=== PATIENT | female | born 1995 | race Caucasian/White ===

== ENCOUNTER → 2017-08-13 | Outpatient (CLI) | payer BC ==
[2017-08-13 17:58] LABS: BASO % 0.4 % (0.0-1.0); EOS # 0.2 10^3/uL (0.0-0.50); EOS % 2.4 % (0.0-3.0); IMMATURE GRANULOCYTE % 0.1 % (0-0); LYMPH # 2.6 10^3/uL (1.5-6.5); LYMPH % 35.1 % (24.0-44.0); MEAN CORPUSCULAR HEMOGLOBIN 26.5 pg (27.0-33.0); MEAN CORPUSCULAR HGB CONC 30.8 g/dl (32.0-36.5); MEAN CORPUSCULAR VOLUME 86.2 fl (80.0-96.0); MONO # 0.6 10^3/uL (0.0-0.8); MONO % 7.4 % (0.0-5.0); NEUTROPHILS # 4.1 10^3/uL (1.8-7.7); NEUTROPHILS % 54.6 % (36.0-66.0); PLATELET COUNT, AUTOMATED 328 10^3/uL (150-450); RED CELL DISTRIBUTION WIDTH 13.9 % (11.5-14.5); WHITE BLOOD COUNT 7.4 10^3/uL (4.0-10.0)
[2017-08-13 18:48] LABS: ALBUMIN 3.7 GM/DL (3.2-5.2); ALBUMIN/GLOBULIN RATIO 0.93 (1.00-1.93); ALKALINE PHOSPHATASE 59 U/L (45-117); ALT/SGPT 18 U/L (12-78); ANION GAP 8 MEQ/L (8-16); AST/SGOT 17 U/L (7-37); BILIRUBIN,TOTAL 0.3 MG/DL (0.2-1.0); BLOOD UREA NITROGEN 14 MG/DL (7-18); CALCIUM LEVEL 8.8 MG/DL (8.5-10.1); CARBON DIOXIDE LEVEL 27 MEQ/L (21-32); CHLORIDE LEVEL 108 MEQ/L (98-107); CREATININE FOR GFR 0.66 MG/DL (0.55-1.02); GLUCOSE, FASTING 96 MG/DL (70-105); POTASSIUM SERUM 4.1 MEQ/L (3.5-5.1); SODIUM LEVEL 143 MEQ/L (136-145); TOTAL PROTEIN 7.7 GM/DL (6.4-8.2)
== END ==
LOC: M LAB 17:19
PROVIDERS: ATTEND Psychiatry & Neurology Neurology
DX: R56.9 Unspecified convulsions (principal); Z51.81 Encounter for therapeutic drug level monitoring; Z79.899 Other long term (current) drug therapy

== ENCOUNTER 2018-11-26 09:07 | Emergency (ER) | payer BC ==
[~2018-11-26] VITALS: Ht 172.7 cm; Wt 48.2 kg
[2018-11-26] MEDS ORDERED: DIVA500T9 PO (09:21)
[2018-11-26] MEDS ORDERED: VIMP200T PO (09:21)
[2018-11-26] MEDS ORDERED: FOLI1TAB11 PO (09:21)
[2018-11-26] MEDS ORDERED: TRIV1TAB2 PO (09:21)
[2018-11-26 10:30] LABS: BLOOD UREA NITROGEN 11 MG/DL (7-18); CALCIUM LEVEL 8.9 MG/DL (8.5-10.1); CARBON DIOXIDE LEVEL 25 MEQ/L (21-32); CHLORIDE LEVEL 108 MEQ/L (98-107); CREATININE FOR GFR 0.65 MG/DL (0.55-1.30); GLOMERULAR FILTRATION RATE > 60.0 (>60); GLUCOSE, FASTING 93 MG/DL (70-100); POTASSIUM SERUM 3.9 MEQ/L (3.5-5.1); SODIUM LEVEL 140 MEQ/L (136-145); VALPROIC ACID (DEPAKOTE) 8.8 UG/ML (50.0-100.0)
[2018-11-26 10:36] LABS: HCG, SERUM QUALITATIVE NEGATIVE (NEGATIVE)
[2018-11-26 11:35] VITALS: BP 91/50
== END 2018-11-26 11:36 | disposition home or self-care (01) ==
LOC: M ED 09:07
DX: R56.9 Unspecified convulsions (principal); I73.00 Raynaud's syndrome without gangrene; Z79.899 Other long term (current) drug therapy; Z88.2 Allergy status to sulfonamides; Z88.8 Allergy status to other drugs, medicaments and biological substances

== ENCOUNTER 2019-01-05 18:43 | Emergency (ER) | payer BC ==
[~2019-01-05] VITALS: Ht 172.7 cm; Wt 45.9 kg
[~2019-01-05 18:43] MED LIST: DIVA500T9 PO; FOLI1TAB11 PO; TRIV1TAB2 PO; VIMP200T PO
[2019-01-05] MEDS ORDERED: IBUPROFEN 600 MG TAB PO ONE (20:00)
--- NOTE | 2019-01-05 20:03 | REPVR ---
EXAM: CT Head Without Contrast EXAM DATE/TIME: 01/05/2019 7:30 PM CLINICAL HISTORY: 23 years old, female; Condition or disease; Convulsions or seizures; Patient HX: Vns implant; Additional info: Multiple seizures today TECHNIQUE: Imaging protocol: Axial computed tomography images of the head without contrast. Radiation optimization: All CT scans at this facility use at least one of these dose optimization techniques: automated exposure control; mA and/or kV adjustment per patient size (includes targeted exams where dose is matched to clinical indication); or iterative reconstruction. COMPARISON: No relevant prior studies available. FINDINGS: Brain: Normal. No hemorrhage. Unremarkable white matter. No mass effect. Ventricles: Normal. No ventriculomegaly. 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 Sinuses: Visualized sinuses are unremarkable. No fluid levels. Mastoid air cells: Visualized mastoid air cells are well aerated. No mastoid effusion. Auditory system: Debris in the right external auditory canal. Soft tissues: Unremarkable. IMPRESSION: Negative noncontrast head CT. Electronically signed by: Gómez Garcia On 01/05/2019 20:03:25 PM
[2019-01-05 20:25] LABS: BASO % 0.3 % (0.0-1.0); EOS # 0.1 10^3/uL (0.0-0.50); EOS % 0.9 % (0.0-3.0); HEMATOCRIT 33.8 % (36.0-47.0); HEMOGLOBIN 10.3 g/dl (12.0-15.5); LYMPH # 1.5 10^3/uL (1.5-6.5); LYMPH % 14.5 % (24.0-44.0); MEAN CORPUSCULAR HEMOGLOBIN 23.6 pg (27.0-33.0); MEAN CORPUSCULAR HGB CONC 30.5 g/dl (32.0-36.5); MEAN CORPUSCULAR VOLUME 77.3 fl (80.0-96.0); MONO # 0.7 10^3/uL (0.0-0.8); NEUTROPHILS # 7.9 10^3/uL (1.8-7.7); NEUTROPHILS % 77.1 % (36.0-66.0); PLATELET COUNT, AUTOMATED 326 10^3/uL (150-450); RED BLOOD COUNT 4.37 10^6/uL (4.00-5.40); WHITE BLOOD COUNT 10.2 10^3/uL (4.0-10.0)
[2019-01-05] MEDS ORDERED: NS 500 ML IV ONE (20:30)
[2019-01-05 20:43] LABS: ALBUMIN 3.2 GM/DL (3.2-5.2); ALT/SGPT 15 U/L (12-78); BILIRUBIN,DIRECT < 0.1 MG/DL (0.0-0.2); BILIRUBIN,TOTAL 0.2 MG/DL (0.2-1.0); BLOOD UREA NITROGEN 12 MG/DL (7-18); CALCIUM LEVEL 8.3 MG/DL (8.5-10.1); CARBON DIOXIDE LEVEL 24 MEQ/L (21-32); CHLORIDE LEVEL 108 MEQ/L (98-107); CREATININE FOR GFR 0.62 MG/DL (0.55-1.30); GLOMERULAR FILTRATION RATE > 60.0 (>60); GLUCOSE, FASTING 97 MG/DL (70-100); MAGNESIUM LEVEL 2.2 MG/DL (1.8-2.4); PHOSPHORUS LEVEL 2.6 MG/DL (2.5-4.9); POTASSIUM SERUM 3.8 MEQ/L (3.5-5.1); SODIUM LEVEL 141 MEQ/L (136-145); TOTAL PROTEIN 7.2 GM/DL (6.4-8.2); VALPROIC ACID (DEPAKOTE) 5.9 UG/ML (50.0-100.0)
[2019-01-05 20:47] LABS: HCG, SERUM QUALITATIVE NEGATIVE (NEGATIVE)
--- NOTE | 2019-01-05 21:10 | ECGEPIP ---
Stationary ECG Study 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
[2019-01-05 21:39] LABS: AMPHETAMINES LEVEL URINE NEGATIVE (NEGATIVE); BARBITURATES URINE NEGATIVE (NEGATIVE); BENZODIAZEPINES URINE NEGATIVE (NEGATIVE); CANNABINOIDS URINE NEGATIVE (NEGATIVE); COCAINE METABOLITE URINE NEGATIVE (NEGATIVE); METHADONE URINE NEGATIVE (NEGATIVE); OPIATES URINE NEGATIVE (NEGATIVE); PHENCYCLIDINE URINE NEGATIVE (NEGATIVE)
[2019-01-05 22:39] VITALS: BP 78/48
--- NOTE | 2019-01-06 01:11 | REP ---
Clinical: Seizures . Comparison: None . Technique: PA and lateral. Findings: The mediastinum and cardiac silhouette are normal. The lung flores are clear and without acute consolidation, effusion, or pneumothorax. The skeletal structures are intact and normal. Impression: 1. No acute cardiopulmonary process. Electronically Signed by Baldomero Chung MD 01/06/2019 01:03 A
== END 2019-01-05 22:44 | disposition home or self-care (01) ==
LOC: M ED 18:43
DX: G40.909 Epilepsy, unspecified, not intractable, without status epilepticus (principal); I45.19 Other right bundle-branch block; I73.00 Raynaud's syndrome without gangrene; E16.2 Hypoglycemia, unspecified; Z96.9 Presence of functional implant, unspecified; Z79.3 Long term (current) use of hormonal contraceptives; Z79.899 Other long term (current) drug therapy; Z88.2 Allergy status to sulfonamides; Z88.8 Allergy status to other drugs, medicaments and biological substances

== ENCOUNTER → 2019-05-19 | Outpatient (REF) | payer BC ==
[2019-05-19 17:16] LABS: BASO % 0.3 % (0.0-1.0); EOS # 0.3 10^3/uL (0.0-0.5); HEMOGLOBIN 10.7 g/dl (12.0-15.5); LYMPH # 2.4 10^3/uL (1.5-5.0); LYMPH % 31.5 % (24.0-44.0); MEAN CORPUSCULAR HEMOGLOBIN 25.8 pg (27.0-33.0); MEAN CORPUSCULAR HGB CONC 30.6 g/dl (32.0-36.5); MEAN CORPUSCULAR VOLUME 84.3 fl (80.0-96.0); MONO # 0.4 10^3/uL (0.0-0.8); MONO % 5.9 % (0.0-5.0); NEUTROPHILS # 4.4 10^3/uL (1.5-8.5); PLATELET COUNT, AUTOMATED 277 10^3/uL (150-450); RED BLOOD COUNT 4.15 10^6/uL (4.00-5.40); WHITE BLOOD COUNT 7.5 10^3/uL (4.0-10.0)
[2019-05-19 17:33] LABS: ALBUMIN 3.3 GM/DL (3.2-5.2); ALT/SGPT 18 U/L (12-78); BILIRUBIN,TOTAL 0.4 MG/DL (0.2-1.0); BLOOD UREA NITROGEN 14 MG/DL (7-18); CALCIUM LEVEL 9.2 MG/DL (8.5-10.1); CARBON DIOXIDE LEVEL 29 MEQ/L (21-32); CHLORIDE LEVEL 106 MEQ/L (98-107); CREATININE FOR GFR 0.75 MG/DL (0.55-1.30); GLOMERULAR FILTRATION RATE > 60.0 (>60); GLUCOSE, FASTING 86 MG/DL (70-100); POTASSIUM SERUM 4.1 MEQ/L (3.5-5.1); SODIUM LEVEL 142 MEQ/L (136-145); TOTAL PROTEIN 7.2 GM/DL (6.4-8.2); VALPROIC ACID (DEPAKOTE) 89.3 UG/ML (50.0-100.0)
== END ==
LOC: M LABNEURO 14:11
PROVIDERS: ATTEND Psychiatry & Neurology Neurology
DX: R56.9 Unspecified convulsions (principal)

== ENCOUNTER → 2020-10-29 | Outpatient (CLI) | payer BC ==
[2020-10-29 15:16] LABS: BASO % 0.2 % (0.0-1.0); EOS # 0.1 10^3/uL (0.0-0.5); EOS % 1.8 % (0.0-3.0); HEMATOCRIT 39.4 % (36.0-47.0); LYMPH # 2.6 10^3/uL (1.5-5.0); LYMPH % 42.4 % (24.0-44.0); MEAN CORPUSCULAR HEMOGLOBIN 27.1 pg (27.0-33.0); MEAN CORPUSCULAR HGB CONC 30.5 g/dl (32.0-36.5); MEAN CORPUSCULAR VOLUME 88.9 fl (80.0-96.0); MONO # 0.6 10^3/uL (0.0-0.8); MONO % 9.7 % (2.0-8.0); NEUTROPHILS # 2.8 10^3/uL (1.5-8.5); NEUTROPHILS % 45.7 % (36.0-66.0); PLATELET COUNT, AUTOMATED 229 10^3/uL (150-450); RED BLOOD COUNT 4.43 10^6/uL (4.00-5.40); WHITE BLOOD COUNT 6.1 10^3/uL (4.0-10.0)
[2020-10-29 15:24] LABS: ALBUMIN 3.5 GM/DL (3.2-5.2); ALT/SGPT 15 U/L (12-78); BILIRUBIN,TOTAL 0.3 MG/DL (0.2-1.0); BLOOD UREA NITROGEN 13 MG/DL (7-18); CALCIUM LEVEL 9.1 MG/DL (8.5-10.1); CARBON DIOXIDE LEVEL 30 MEQ/L (21-32); CHLORIDE LEVEL 108 MEQ/L (98-107); CREATININE FOR GFR 0.61 MG/DL (0.55-1.30); GLOMERULAR FILTRATION RATE > 60.0 (>60); GLUCOSE, FASTING 84 MG/DL (70-100); POTASSIUM SERUM 4.8 MEQ/L (3.5-5.1); SODIUM LEVEL 140 MEQ/L (136-145); TOTAL PROTEIN 7.2 GM/DL (6.4-8.2); VALPROIC ACID (DEPAKOTE) 139.7 UG/ML (50.0-100.0)
== END ==
LOC: M PLALAB 12:30
PROVIDERS: ATTEND Psychiatry & Neurology Neurology
DX: G40.909 Epilepsy, unspecified, not intractable, without status epilepticus (principal); Z51.81 Encounter for therapeutic drug level monitoring

== ENCOUNTER 2021-06-12 17:57 | Emergency (ER) | payer BC ==
[~2021-06-12] VITALS: Ht 172.7 cm; Wt 50.4 kg
--- OUTSIDE RECORDS SUMMARY | 2021-06-12 18:09 | CCD | Summary of Care ---
Author Author [facility] Organization [facility] Address Unknown Phone Unavailable Care Team Providers Care Group Underwriter Name Role Phone Becka Nathan PCP Reason for Visit * Reason Comments Planned Dental Work Pt's mom states the pt is h ere to maybe get her splint removed today. Timed out by Otto Briggs Encounter Details Care Team Description Date Type Department Pretty Her DDS [address] [facility] [address] [place] [address] [id number] Encounter for dental examination (Primar y Dx) 04/09/2021 Office Visit [facility], Division of Dentistry [address] [place] [address] 4th Floor, [address] [place] [address] Allergies Comments Active Allergy Reactions Severity Noted Date Lamotrigine Rash High 12/29/2013 Suicidal for 3 days post administration sucidical Lorazepam Other (See High 12/29/2013 Comments) Sulfa Antibiotics Nausea And Medium 06/29/2017 Vomiting documented as of this encounter (statuses as of 04/24/2021) Medications End Date Status Medication Sig Dispensed Refills Start Date Active ferrous sulfate 325 (65 Take 325 mg 0 FE) MG tabletIndications: by mouth Iron Deficiency daily with breakfast Active Cholecalciferol (VITAMIN Take 2,000 0 D) 2000 units tablet Units by mouth daily Active divalproex (DEPAKOTE) 500 Take 500 mg 0 06/25 7/201 MG 24 hr tablet by mouth 7 daily Active folic acid (FOLVITE) 1 MG Take 1 mg by 0 07/24 tablet mouth daily 7 Active LEVONEST per tablet Take 1 tablet 0 by mouth 7 daily Active albuterol (PROAIR HFA) Inhale 2 0 108 (90 Base) MCG/ACT puffs into 4 inhaler the lungs every 6 (six) hours as needed Active Lacosamide (VIMPAT) 200 Take 200 mg 0 MG TABS by mouth Two Times Daily Active Divalproex Sodium ER 250 Take 250 mg 0 01/13 MG Oral Tablet Extended by mouth 9 Release 24 Hour nightly (DEPAKOTE) Active cloBAZam 10 MG Oral Take 5 mg by 0 Tablet (Onfi) mouth Two Times Daily Active Kurvelo 0.15-30 MG-MCG 0 Oral Tablet 1 documented as of this encounter (statuses as of 04/24/2021) Active Problems Problem Noted Date Allergic urticaria 10/20/2019 Seizure disorder 08/21/2017 Overview: Formatting of this note might be differ ent from the original. Added automatically from request for cortes rgery [id number] Preop testing 08/21/2017 Overview: Formatting of this note might be differ ent from the original. 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 documented as of this encounter Last Filed Vital Signs Reading Time Taken Comments Vital Sign 97/68 04/09/2021 9:37 AM EDT Blood Pressure 76 04/09/2021 9:37 AM EDT Pulse - - Temperature - - Respiratory Rate - - Oxygen Saturation - - Inhaled Oxygen Concentration - - Weight - - Height - - Body Mass Index documented in this encounter Progress Notes * Geraldo Hutchinson DDS - 04/09/2021 9:30 AM EDT I have reviewed the notes, assessments, and procedures performed by Micah Her DDS and I concur with the documentation of Alfreda Arevalo. General supe rvision was provided throughout the procedure. * Pretty Her DDS - 04/09/2021 9:30 AM EDT Patient presents with her mother for two week followup and splint removal. Patie nt states her teeth do not hurt but her gums are inflamed. Splint and excess res in removed. PA taken to include 23,24,25. PA reviewed and shows minimal healing. 24 and 25 are still mobile, 25 more than 24. The incisal edges of both 24 and 25 were reduced and due to the patients overbite the facial surfaces were minimally reduced as well. 22,23,24,25,26,27 all reacted normally to cold testing with non-lingering sensit ivity. I advised the patient that the prognosis of 25 is still guarded due to th e amount of mobility. Advised the patient to not bite into anything hard such as apples for it could displace the tooth. Continue to brush and floss normally. All patient and parent questions answered. Patient will return in two months for a followup documented in this encounter Plan of Treatment Care Team Description Date Type Specialty Raghu Loza DDS [address] [facility] [address] [place] [address] [phone] 07/10/2021 Office Visit Dentistry Order Schedule Name Type Priority Associated Diag noses Ordered: 04/09/2021 X-Ray Periapical Dental Routine Encounter for dental Procedures examination Health Maintenance Due Date Last Done Comments Dental Oral Exam 1997 Dental Prophylaxis 1995 Dental X-Ray: Bitewings 1997 Dental X-Ray: Full Mouth 1997 or Panorex HPV Vaccines (1 - 2-dose 02/02/2008 series) HIV Screening 2010 Chlamydia Screening 2013 Cervical Cancer Screening 2018 3 years Influenza Vaccine 05/24/2021 DTaP,Tdap,and Td Vaccines 12/15/2028 12/15/2018, (5 - Td or Tdap) 10/18/2008, 02/25/2001, Additional history exists Pneumococcal Vaccine: 65+ 2062 Years (1 of 1 - PPSV23) Hepatitis B Vaccines Completed 1995, 1997, 1997 HIB Vaccines Completed 05/15/1998, 1997, 1997, Additional history exists IPV Vaccines Completed 02/25/2001, 1997, 1997, Additional history exists MMR Vaccines Completed 02/25/2001, 05/15/1998 Varicella Vaccines Completed 05/07/2009, 10/18/2008 Hepatitis A Vaccines Aged Out No longer eligibl e based on patient's age to complete this topic Pneumococcal Vaccine: Aged Out No longer eligib le based on patient's age to Pediatrics (0 to 5 Years) complete this topic and At-Risk Patients (6 to 64 Years) documented as of this encounter Implants Device Identifier Shelf Expiration Date Model / Serial / L ot Implanted Type Area Manufactur er 05/11/2019 [id number] / [id number] / Generator Sentiva Model 1000 - Left: Chest [employer] [id number] , [employer] Implanted: Qty: 1 on 09/21/2017 by Charles Rodriguez MD at [facility] 12/24/2020 [id number] / [id number] / Lead Perenniaflex 304 2mm - [id number] Left: Chest [employer] Implanted: Qty: 1 on 09/21/2017 by , Charles Finnegan MD at [facility] documented as of this encounter Procedures Comments Procedure Name Priority Date/Time Associated Diag nosis 27 OH INTRAORAL Routine 04/09/2021 Encounter for dental PERIAPICAL FIRST F 9:30 AM EDT examination OH RE-EVAL,EST PT,PROBLEM Routine 04/09/2021 Enco unter for dental FOCUS 9:30 AM EDT examination documented in this encounter Results Not on filedocumented in this encounter Visit Diagnoses Diagnosis Encounter for dental examination - Prim benjamín Dental examination documented in this encounter
--- OUTSIDE RECORDS SUMMARY | 2021-06-12 18:09 | CCD | Summary of Care ---
Author Author [facility] Organization [facility] Address Unknown Phone Unavailable Care Team Providers Care Cardroom Worker Name Role Phone Becka Nathan DO PCP Reason for Visit * Reason Comments Dental Problem Follow-up splint.Time out G montana CROSS Encounter Details Care Team Description Date Type Department Raghu Loza, CARAS [address] [facility] [address] [place], [place] [address] Encounter for dental examination (Primar y Dx) 03/25/2021 Office Visit [facility], Division of Dentistry [address] [place] [address] 4th Floor, [address] [place] [phone] Allergies Comments Active Allergy Reactions Severity Noted Date Lamotrigine Rash High 12/29/2013 Suicidal for 3 days post administration sucidical Lorazepam Other (See High 12/29/2013 Comments) Sulfa Antibiotics Nausea And Medium 06/29/2017 Vomiting documented as of this encounter (statuses as of 03/25/2021) Medications End Date Status Medication Sig Dispensed [...] Active albuterol (PROAIR HFA) Inhale 2 0 01 108 (90 Base) MCG/ACT puffs into 4 [...] as of this encounter (statuses as of 03/25/2021) Active Problems Problem Noted Date Allergic urticaria 10/20/2019 Seizure disorder 08/21/2017 Overview: Formatting of this note might be differ ent from the original. Added automatically from request for sophia winter [id number] Preop testing 08/21/2017 Overview: Formatting of this note might be differ ent from the original. 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 Anxiety 06/29/2017 Generalized convulsive seizures 10/29/2015 documented as of this encounter (statuses as of 03/25/2021) Social History Date Tobacco Use Types Packs/Day Years Used Never Smoker Smokeless Tobacco: Never Used Comments Alcohol Use Standard Drinks/Week No 0 (1 standard drink = 0.6 o z pure alcohol) Sex Assigned at Date Recorded Not on file Industry Job Start Date Occupation Not on file Not on file Not on file Date Recorded COVID-19 Exposure Response 03/25/2021 9:46 AM EDT In the last month, have you been in contact with No / Unsure someone who was confirmed or suspected to have Coronavirus / COVID-19? documented as of this encounter Last Filed Vital Signs Reading Time Taken Comments Vital Sign 94/72 03/25/2021 10:02 AM EDT Blood Pressure 88 03/25/2021 10:02 AM EDT Pulse - - Temperature - - Respiratory Rate - - Oxygen Saturation - - Inhaled Oxygen Concentration - - Weight - - Height - - Body Mass Index documented in this encounter Progress Notes * Geraldo Hutchinson DDS - 03/25/2021 10:00 AM EDT I have reviewed the notes, assessments, and procedures performed by Leonie Loza DDS and I concur with the documentation of Alfreda Arevalo. General supe rvision was provided throughout the procedure. * Raghu Loza DDS - 03/25/2021 10:00 AM EDT Pt presents for follow up of splinted teeth #22-27, trauma. Since previous follow up 3 weeks ago pt has suffered two seizures with clenching during each incident. Teeth #23,24,26 all show class I mobility with radiographic signs of firming up within the bone, tooth #25 remains class II and has mild sensitivity to cold air compared to baseline. Discussed with pt and mom that the teeth are improving overall, but 25 still has a guarded prognosis due to lack of integration following trauma. Possible tx pl an ideas discussed with pt and questions answered, no definitive tx to be added at this time. Pt to return in 2 weeks for removal of splint and occlusal modification of incis al edges of teeth #23-26 to reduce hyperocclusion. Pt understands that teeth justina l remain unsplinted and future evaluation may be necessary if improvement does n ot occur. documented in this encounter Plan of Treatment Care Team Description Date Type Specialty Pretty Her DDS [address] [facility] [address] [place] [address] 04/09/2021 Office Visit Dentistry Raghu Loza DDS [address] [facility] [address] [place] [address] [phone] 05/10/2021 Office Visit Dentistry Order Schedule Name Type Priority Associated Diag noses Ordered: 03/25/2021 X-Ray Periapical Dental Routine Encounter for dental Procedures examination 1 Occurrences starting 03/25/2021 OH LIMIT ORAL EVAL PROBLM Dental Routine FOCUS Procedures Health Maintenance Due Date Last Done Comments [...] ot Implanted Type Area Manufactur er 05/11/2019 [id number] / [id number] / Generator Sentiva Model 1000 - Left: Chest [employer] [id number] , INC Implanted: Qty: 1 on 09/21/2017 by Charles Rodriguez MD at [facility] 5E 12/24/2020 [id number] / [id number] / Lead Perenniaflex 304 2mm - [id number] Left: Chest [employer] Implanted: Qty: 1 on 09/21/2017 by , INC Charles Rodriguez MD at [facility] 5E documented as of this encounter Procedures Comments Procedure Name Priority Date/Time Associated Diag nosis OH LIMIT ORAL EVAL PROBLM Routine 03/25/2021 Enco unter for dental FOCUS 10:00 AM EDT examination documented in this encounter Results Not on filedocumented in this encounter Visit Diagnoses Diagnosis Encounter for dental examination - Prim benjamín Dental examination documented in this encounter
--- OUTSIDE RECORDS SUMMARY | 2021-06-12 18:09 | CCD | Continuity of Care Document ---
Author Author Alfreda SOTO M.D. Organization Unknown Address [address] [place] [address] Phone [phone] Care Team Providers Care Rn Charge Name Role Phone Ofelia Mcdaniel N.P. 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 Onset: 11/13/2016 Refractory epilepsy Cassi Soto M.D. Onset: 01/16/2017 Social History Type Date Description Comments Sex Unknown ETOH Use Denies alcohol use Tobacco Use Start: Unknown Patient has never smoked Allergies, Adverse Reactions, Alerts Active Allergies Criticality Reaction | Severity Comments Date Sulfa Antibiotics Unable to assess criticality 11/13/2016 Lamictal Unable to assess criticality 11/13/2016 Lorazepam Unable to assess criticality 11/13/2016 Medications Active Medications SIG Qnty Indications Ordering Provide r Date Topiramate 50mg Tablets half a tab po bid for 3 days, then 1 po bid for 10 days around menstrual cycles. 60taautumn Soto M.D. 04/19/2021 Divalproex Sodium ER 500mg Tablets ER 24HR Take 2 tablets by mouth every night at b edtime. Maximum daily dose: 2 tablets. 180cristian Soto M.D. 01/06/2019 Vimpat 150mg Tablets take 1 tablet by mouth twice daily. max daily dose 2 tablets. (Code C for 90 days supply) 180cristian Soto M.D. 05/20/2017 Folic Acid 1mg Tablets take 2 tablets by mouth once daily (max daily dose of 2 tablets). 180cristian oSto M.D. 11/13/2016 History Medications Clobazam 10mg Tablets half a Tab po bid. 15cristian Soto M.D. 10/31/2020 - 021 Immunizations Description No Information Available Vital Signs Date Vital Result Comment 11/13/2016 8:31am BP Systolic 100 mmHg BP Diastolic 60 mmHg Heart Rate 78 /min Respiratory Rate 16 /min Height 68 inches 5'8" Weight 104.00 lb BMI (Body Mass Index) 15.8 kg/m2 [place] Body Weight 140 lb Results Test Acquired Date Facility Test Result H/L Range Note CBC With Differential 10/29/2020 [facility] White Blood Count 6.1 10 Normal 4.0-10.0 Red Blood Count 4.43 10 Normal 4.00-5.40 Hemoglobin 12.0 g/dL Normal 12.0-15.5 Hematocrit 39.4 % Normal 36.0-47.0 Mean Corpuscular Volume 88.9 fl Normal 80.0-96.0 Mean Corpuscular Hemoglobin 27.1 pg Normal 27.0-33.0 Mean Corpuscular HGB Conc 30.5 g/dL Low 32.0-36.5 Red Cell Distribution Width 14.6 % High 11.5-14.5 Platelet Count, Automated 229 10 Normal 150-450 Neutrophils % 45.7 % Normal 36.0-66.0 Lymph % 42.4 % Normal 24.0-44.0 [place] % 9.7 % High 2.0-8.0 Eos % 1.8 % Normal 0.0-3.0 Baso % 0.2 % Normal 0.0-1.0 Immature Granulocyte % 0.2 % Normal 0-3.0 Nucleated Red Blood Cell % 0.0 % Normal 0-0 Neutrophils # 2.8 10 Normal 1.5-8.5 Lymph # 2.6 10 Normal 1.5-5.0 [place] # 0.6 10 Normal 0.0-0.8 Eos # 0.1 10 Normal 0.0-0.5 Baso # 0.0 10 Normal 0.0-0.2 Comprehensive Metabolic Profil 10/29/2020 [facility] Glucose, Fasting 84 mg/dL Normal 70-100 Blood Urea Nitrogen 13 mg/dL Normal 7-18 Creatinine For GFR 0.61 mg/dL Normal 0.55-1.30 Glomerular Filtration Rate > 60.0 Normal >60 1 Sodium Level 140 mEq/L Normal 136-145 Potassium Serum 4.8 mEq/L Normal 3.5-5.1 Chloride Level 108 mEq/L High 98-107 Carbon Dioxide Level 30 mEq/L Normal 21-32 Anion Gap 2 mEq/L Low 8-16 Calcium Level 9.1 mg/dL Normal 8.5-10.1 Ast/Sgot 10 U/L Normal 7-37 Alt/SGPT 15 U/L Normal 12-78 Alkaline Phosphatase 72 U/L Normal 45-117 Bilirubin,Total 0.3 mg/dL Normal 0.2-1.0 Total Protein 7.2 GM/DL Normal 6.4-8.2 Albumin 3.5 GM/DL Normal 3.2-5.2 Albumin/Globulin Ratio 0.9 Low 1.2-2.2 Laboratory test finding 10/29/2020 [facility] Valproic Acid (Depakote) 139.7 UG/ML High 50.0-100.0 Lacosamide Level 5.0 ug/mL Normal 5.0-10.0 2 1 Units are mL/min/1.73 m2 Chronic Kidney Disease Staging per NKF: Stage I & II GFR >=60 Normal to Mildly Decreased Stage III GFR 30-59 Moderately Decreased Stage IV GFR 15-29 Severely Decreased Stage V GFR <15 Very Little GFR Left ESRD GFR <15 on [employer] WORK[employer] 2 This test was developed and its performance characteristics determined by [facility]. It has not been cleared or approved by the Food and Drug Administration. Limit of Detection 0.5 . Mean plasma concentrations following maintenance dose 200 mg/day 4.99 +/- 2.51 ug/mL 400 mg/day 9.35 +/- 4.22 ug/mL 600 mg/day 12.46 +/- 5.60 ug/mL Performed at: [facility] [address] [id number] 61 Fax Machine Repairer: Gagandeep Delgado MD, Phone: [phone] Procedures Date Code Description Status 04/19/2021 37949 Office/Outpatient Established Hi gh MDM 40-54 Min Completed 10/31/2020 44079 Office/Outpatient Established Mo d MDM 30-39 Min Completed Medical Devices Description No Information Available Encounters Type Date Location Provider Dx Diagnosis Office Visit 04/19/2021 8:45a Main office - Garcia [place] G40.319 Generalized idiopathic epilepsy, intractable, w/o stat epi G40.A09 Absence epileptic syndrome, not intractable, 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 04/19/2021 G40.A09 Absence epileptic syndrome, not intractable, without status Cassi Soto M.D. 04/19/2021 G40.B19 Juvenile myoclonic epilepsy, int ractable, without status epi Cassi Soto M.D. 10/31/2020 G40.319 Generalized idiopath ic epilepsy and epileptic syndromes, intractable, without status epilepticus Cassi Soto M.D. 10/31/2020 G25.3 Myoclonus Cassi Soto M.D. 10/31/2020 G40.A09 Absence epileptic syndrome, not intractable, without status Cassi Soto M.D. 10/31/2020 G40.B19 Juvenile myoclonic epilepsy, int ractable, without status epi Cassi Soto M.D. Plan of Treatment No Information Available Functional Status Description No Information Available Mental Status Description No Information Available Referrals Description No Information Available
--- OUTSIDE RECORDS SUMMARY | 2021-06-12 18:09 | CCD | Continuity of Care Document ---
Author Alfreda Jiménez M.D. Organization Unknown Address [address] [place] [id number] Phone [phone] Care Team Providers Care Firer Retort Name Role Phone Pauline Guerin SURGICAL SUPPLY ASSISTANT AUTM [phone] Problems Active Problems Provider Date Refractory generalized [...] bid for 10 days around menstrual cycles. 60cristian Soto M.D. 04/19/2021 Divalproex Sodium ER 500mg [...] (max daily dose of 2 tablets). 180cristian Soto M.D. 11/13/2016 History Medications Clobazam 10mg Tablets half a Tab po bid. 15cristian Soto M.D. 10/31/2020 - 021 Immunizations Description No Information Available Vital Signs Date Vital Result Comment 11/13/2016 8:31am BP Systolic 100 mmHg BP Diastolic 60 mmHg Heart Rate 78 /min Respiratory Rate 16 /min Height 68 inches 5'8" Weight 104.00 lb BMI (Body Mass Index) 15.8 kg/m2 [place] Body Weight 140 lb Results Test Acquired Date Facility Test Result H/L Range Note CBC With Differential 10/29/2020 [facility] White Blood Count 6.1 10 Normal 4.0-10.0 [...] 36.0-66.0 Lymph % 42.4 % Normal 24.0-44.0 [place] % 9.7 % High 2.0-8.0 Eos % 1.8 % Normal 0.0-3.0 Baso % 0.2 % Normal 0.0-1.0 Immature Granulocyte % 0.2 % Normal 0-3.0 Nucleated Red Blood Cell % 0.0 % Normal 0-0 Neutrophils # 2.8 10 Normal 1.5-8.5 Lymph # 2.6 10 Normal 1.5-5.0 [place] # 0.6 10 Normal 0.0-0.8 Eos # 0.1 10 Normal 0.0-0.5 Baso # 0.0 10 Normal 0.0-0.2 Comprehensive Metabolic Profil 10/29/2020 [facility] Glucose, Fasting 84 mg/dL Normal 70-100 Blood [...] 0.9 Low 1.2-2.2 Laboratory test finding 10/29/2020 [facility] Valproic Acid (Depakote) 139.7 UG/ML High 50.0-100.0 Lacosamide Level 5.0 ug/mL Normal 5.0-10.0 2 1 Units are mL/min/1.73 m2 Chronic Kidney Disease Staging per NKF: Stage I & II GFR >=60 Normal to Mildly Decreased Stage III GFR 30-59 Moderately Decreased Stage IV GFR 15-29 Severely Decreased Stage V GFR <15 Very Little GFR Left ESRD GFR <15 on CUSTOMER EXPERIENCE LEADER 2 This test was developed and its performance characteristics determined by [facility]. It has not been cleared or approved by the Food and Drug Administration. Limit of Detection 0.5 . Mean plasma concentrations following maintenance dose 200 mg/day 4.99 +/- 2.51 ug/mL 400 mg/day 9.35 +/- 4.22 ug/mL 600 mg/day 12.46 +/- 5.60 ug/mL Performed at: [address] [id number] [employer] Mechanic: Gagandeep Delgado MD, Phone: [phone] Procedures Date Code Description Status 04/19/2021 82202 Office/Outpatient Established Hi gh MDM 40-54 Min Completed 10/31/2020 09037 Office/Outpatient Established Mo d MDM 30-39 Min Completed Medical Devices Description No Information Available Encounters Type Date Location Provider Dx Diagnosis Office Visit 04/19/2021 8:45a Main office - [place] Garcia Hernandes G40.319 Generalized idiopathic epilepsy, intractable, w/o stat epi G40.A09 Absence epileptic syndrome, not intractable, w/o stat epi G40.B19 Juvenile myoclonic epilepsy, intractable, w/o stat epi Office Visit 10/31/2020 12:00p Main office - [place] Garcia Hernandes G40.319 Generalized idiopathic epilepsy, intractable, w/o stat [...] epi Cassi Soto M.D. Plan of Treatment Future Appointment(s):* 07/24/2021 12:45 pm - Cassi Soto M.D. at Main office - [place] Functional Status Description No Information Available Mental Status Description No Information Available Referrals Description No Information Available
--- OUTSIDE RECORDS SUMMARY | 2021-06-12 18:09 | CCD | Clinical Summary ---
Author Author [facility] Organization [facility] Address [address] [place] [address] Phone Care Team Providers Care Application Specialist Name Role Phone Brittany PANDYA, Cassi Unavailable [phone] Truong MCGILL, Pauline PP [phone] Reason for Referral No Reason for Referral Recorded Reason for Visit and Chief Complaint The Chief Complaint is: Patient ambulates to exam room 30 for acute level 3 vis it. Patient is complaining of 1 week history of painful lump in right breast. Louie vasquez denies any discharge from lump or from nipple. Maddison CARTWRIGHT Problems Includes: Problems addressed during this encounter and other active Problems All Visits Onset Date - Time Resolved Date - Time Provider Co ndition Status Constipation 01/10/2019 - 12:00AM Ofelia I Jonas MCGILL Active Note: Unchanged - miralax pr n Enlargement of Lymph Nodes 01/10/2019 - 12:00AM Allison e I Jonas NIGHT NURSE Active Note: Unchanged - left neck- unchanged Raynaud's Syndrome 01/10/2019 - 12:00AM Ofelia I Carn mariza NIGHT NURSE Active Note: MICH positive Contraceptive Surveillance 10/23/2016 - 12:00AM Allison e I Jonas NIGHT NURSE Active Note: BCP started to regulat e menses Epilepsy Generalized 02/09/2014 - 12:00AM Pauline davis NP Active Note: Poorly-Controlled - [facility] as he is a seizure specialist.Has a VNS (vagal nerve stimulator)Is on Vimpat and DepakoteLevels low Acne 02/07/2014 - 12:00AM Ofelia I Jonas NIGHT NURSE Active Note: Improved Allergic Urticaria 01/25/2013 - 12:00AM Ofelia I Carn es NIGHT NURSE Active Note: Improved Plan of Treatment Pending Tests Order Diagnosis Results Due Ordering Provi cricket Visit Summary - Standard Visit Visit Summary Standard Visi t Unspecified lump in the right breast, upper inner quadrant 06/07/21 Enedina Villegas MD Referrals To Diagnosis FORMING TUBE SELECTOR Geraldo Barclay DO Unspecified lump in the right breast, upper inner quadrant Note: Please schedule patient with provi cricket - INVENTORY CONTROL ANALYST. Patient has a breast lump possible cyst, sono ordered Future Appointments Date Time Location Provider [facility] 07/04/2021 9:30AM [facility] Pauline davis NP Future Tests Order Diagnosis Results Due Ordering Provid er Lab US BREAST UNILAT COMPLETE RT 07/07/21 Geraldo Barclay DO - Return to the clinic if condition worsens or new symptoms arise Total time spent reviewing patient chart, encounter with patient and documentation: 30 mins A portion of this document was dictated using [employer] software. A reasonable attempt was made to proofread for typos and errors. Please call with questions. Assessments Includes: Assessments from this encounter - Lump or mass in breast -- Patient has a breast lump measuring about 3 to 4 cm in the right breast (left upper inner quadrant). This has reportedly increased in size over the last 2 weeks. Patient has been off her control pills since 05/26/2021. I discussed various differentials for her breast lump including simple versus complex cyst. I discussed that if this is a simple cyst it will likely resolve with time. If she does have a complex cyst she will need biopsy of the area and referral to breast surgery. I discussed the differential of mastitis and breast abscess however she has no superimposed skin changes to suggest this. She will need an ultrasound of the right breast for further evaluation of this. I ordered this a stat. In the meantime she is agreeable to establishing care with INVENTORY CONTROL ANALYST. Patient will be contacted with the results of the ultrasound.Instructed to call our office if the lump significantly enlarges or the pain worsens Instructions Includes: Instructions from this encounter Education and Decision Aids were provide d during visit for: Patient appeared to understand therapeut ic regimen Medical Equipment - Implanted Devices Includes: Current DevicesNo Medical Equipment Recorded Medications Includes: Medications discussed during this encounter and other current Medicati ons Discontinued / Stopped on this date Robbin Soto MD on 11/06/2020 cloBAZam 5 MG Oral Film Provider: Cassi Soto MD Diagnosis: Current Medications (continue as prescribed) Macrobid 100 MG Oral Capsule 02/12/2021 Provider: Geraldo Barclay DO Diagnosis: twice a day Levonorgestrel-Ethinyl Estrad 0.15-30 MG-MCG Oral Tabl et 02/08/2021 - 07/08/2021 Provider: Pauline Guerin NP Diagnosis: Encounter for survei llance of contraceptives, unspecified take one tablet daily Vimpat 150 MG Oral Tablet 04/18/2020 Provider: Cassi Soto MD Diagnosis: Divalproex Sodium ER 500 MG Oral Tablet Extended Release 24 Hour 04/04/2020 Provider: Cassi Soto MD Diagnosis: 1000 mg daily at HS Folic Acid 1MG Oral Tablet 09/10/2017 Provider: Diagnosis: 2mg daily EQL Vitamin D3 2000UNIT Oral Capsule 10/29/2016 Pro vider: Ofelia Mcdaniel NP Diagnosis: once a day Medications Administered Includes: Administered Medications from this encounterNo Administered Medications Recorded Vital Signs Includes: Vital Signs from this encounter Vital Name 06/07/2021 10:14A Blood Pressure Sitting R 110/84 BP Cuff Size Regular Pulse Rate-Sitting (bpm) 101 Pulse Rhythm Regular Respiration Rate (breaths/min) 18 Temp-Tympanic (F) 97 Weight (lb) 113 Pain Level 7 Oxygen Saturation (%) 97 Flow Rate (l/min) (None (Room Air)) FiO2 (%) 21 Results Includes: Results discussed during this encounterNo Results Recorded For Specified Dates History of Present Illness Includes: History of Present Illness from this encounter Alfreda Turner is a 26 year old female. - Allergy list reviewed - Medication reconciliation performed - Medication list reviewed - No systemic symptoms - Previously well - - Primary physician: Geraldo Barclay DO Patient states that she feels she has a blocked mammary gland. She states she has been having breast tenderness since her last period. Onset 2 weeks ago when menses ended. Last week she was rubbing the breast and noticed a small lump which was the size of 2 quarters. She feels the lump has gotten bigger. She feels pain with wearing a bra. She has been using ibuprofen to imrpove the pain to 4/10. Without the ibuprofen she has pain 7/10 in intensity. She has no fever, nipple discharge. No fam hx of breast cancer. Has not had this happen before. She admits to a h/o skin abscesses. She is prescribed control pills however misplaced her script. She last took a pill on 05/26/21. Has not been sexually active since 05/26/21. She states she has refills available at the pharmacy however does not plan on filling them as she is not sexually active currently Social History Description Last Updated No menarche yet 06/07/2021 (4) I do moderate physical activities, b ut less than 30 minutes a day or 5 days a week 06/07/2021 3 meals per day 06/07/2021 3 snacks per day 06/07/2021 Activities 06/07/2021 Alcohol use 02/08/2021 Denies alcohol consumption 05/24 Amount of sleep was nine hours/day 06/07/2021 control method not specified 06/07/2021 Diet provides sufficient food variety 06/07/2021 Educational level 12 06/07/2021 Educational level: grade was ten 06/07/2021 Exercise frequency 12/2806/07/2021 In 11th grade 06/07/2021 No caffeine use 06/07/2021 No domestic violence 06/07/2021 No secondhand cigarette smoke exposure 06/07/2021 Normal activities of daily living 06/07/2021 Not a current smoker 06/07/2021 Not a smoker Greater than 30 pack years 06/07/2021 Not using drugs 02/08/2021 06/07/2021 Not working part-time 06/07/2021 Physical disability 06/07/2021 Poor exercise habits 06/07/2021 Sexually active 06/07/2021 Smoking status 12/02/2017 : Never smoker 06/07/2021 Social history unchanged 06/07/2021 No secondhand cigarette smoke exposure 06/07/2021 Smoking status 06/07/2021 : Never smoker 06/07/2021 Procedures and Surgical History Includes: Procedures from this encounter Procedures Code Diagnosis Performing Provider Service Location Service Date Transition in care medication list update Clinical summary provided to patient Summary provided electronically in CCDA format & reasonable certainty of receipt Surgical History Last Updated No prior surgery 06/07/2021 Surgical / procedural history vagal nerve stimulator in 2018 [facility] 06/07/2021 Medical History Includes: Medical History addressed during this encounter Description Last Updated Exposure to mononucleosis Pt woke up th is morning with itchy rash on dorsal aspect of upper arms and tops of the shoulders. She does not know why, denies any recent new exposures, contact with known allergens. She denies any SOB, inability to swallow 06/07/2021 History of neurologic disorder pt has g randmal seizures and was diagnosed in 2007. [facility] 06/07/2021 No recent change in medical history 06/07/2021 No smoke exposure 06/07/2021 Past medical history -Please see Problem List for Act talat Chronic Problems 06/07/2021 Reported medical history 06/07/2021 Taking medication 06/07/2021 Family History Includes: Family History addressed during this encounter Description Last Updated Family history reviewed - unchanged since last visit 06/07/2021 Family history unchanged 06/07/2021 Review of Systems Includes: Review of Systems from this encounter Systemic: Not feeling poorly (malaise). No fever and no chills. Head: No headache and no sinus pain. Eyes: No itching of the eyes and no eye pain. Otolaryngeal: No earache, no nasal discharge, and no sore throat. Cardiovascular: No chest pain or discomfort and no palpitations. Pulmonary: No dyspnea, no cough, and no wheezing. Gastrointestinal: No nausea, no vomiting, no abdominal pain, and no melena. No diarrhea and no constipation. Genitourinary: No hematuria and no dysuria. Musculoskeletal: No muscle aches and no localized joint pain. Neurological: No dizziness, no motor disturbances, and no sensory disturbances. Skin: No pruritus and no rash. Mental Status Includes: Mental Status from this encounterNo Mental Status Recorded Functional Status Includes: Functional Status from this encounterNo Functional Status Recorded Physical Exam Includes: Physical Exam from this encounter Eyes: -the extraocular movements were normal Ears, Nose, Throat: -no nasal discharge seen Lymph Nodes: -the cervical lymph nodes were not enlarged -the supraclavicular lymph nodes were not enlarged -no adenopathy no axillary lymph node enlargement bilaterally Lungs: -respiratory excursion normal and symmetric -normal breath sounds/voice sounds -no wheezing was heard -no rhonchi were heard -no rales/crackles were heard Breast: -no mass was found in the left breast -a mass was found in the right breast measuring about 3-4 cm in the left upper inner quadrant of the breast. No superimposed skin changes -no retraction of the right nipple -no retraction of the left nipple -no deviation of the right nipple -no deviation of the left nipple -tenderness of the right breast -no tenderness of the left breast Skin: -the skin general appearance was normal General Status: -in no acute distress -well developed -well nourished Vital Signs: -current vital signs reviewed Cardiovascular System: -heart rate and rhythm normal Immunizations Includes: Immunizations addressed during this encounterNo Immunizations Recorded Allergies Includes: Active Allergies Substance Type Reaction Onset Date - Time Resolved Date - Ti me Status Sulfa Antibiotics Allergy 01/17/2015 - 12:00AM Active LaMICtal Allergy Skin Rashes, Hives 12/25/2010 - 12:00AM Active [place] fruit Allergy 05/09/2008 - 12:00AM Re solved Note: pt and mother say it i s not active anymore, pt is eating those products with no effects.Lance CARTWRIGHT Ativan Allergy 06/12/2009 - 12:00AM Acti ve Note: makes pt suicidal for up to 3 days Encounters Encounter Provider Location Date Check-In Time Check-Out Time D iagnosis Acute L3 Enedina Villegas MD [facility] 06/07/2021 10:04AM 10:47AM Breast Lump Or Mass Insurance Includes: Active Insurance Policies Plan Name Member ID Group # Subscriber Relationship Effective Da rasheed 1 - [employer] [id number] Reji Arevalo Chi 04/24/2020 - Unknown 2 - Medicaid[employer] [id number] Alfreda Mcdaniels ins-Aubree Self 3 - [employer] [id number] Reji Arevalo Child 04/21/2014 - Unknown Advance Directives Includes: Current Advance Directives Directive Pat Aware Third Libertarian Effective Date Reviewed Status Ebola Screening Performed Yes 01/10/2019 Current and Verified Note: Within the last month, have you traveled outside of the [place]? - NO packet given Pt Bill of Rights, Priv Prac, Ad Dir Yes 02/08/2021 Current and Verified Note: Pt declined AD packet Health Concerns Includes: Health Concerns for current assessmentsNo Active Health Concerns Recorded Goals Includes: Active Goals for current assessmentsNo Active Goals Recorded Interventions Includes: Interventions for current assessmentsNo Interventions Recorded Evaluations & Outcomes Includes: Evaluations & Outcomes for current assessmentsNo Outcomes Recorded
--- OUTSIDE RECORDS SUMMARY | 2021-06-12 18:10 | CCD ---
Author Author [facility] Organization [facility] Address Unknown Phone Unavailable Care Team Providers Care Top Taper Machine Name Role Phone Farhana JAUREGUI Unavailable Unavailable [place], Pauline REMOTE CONTROL MIRROR INSTALLER Unavailable Unavailable Truong, Pauline REMOTE CONTROL MIRROR INSTALLER Unavailable Unavailable [place], Pauline REMOTE CONTROL MIRROR INSTALLER Unavailable Unavailable [place], Pauline REMOTE CONTROL MIRROR INSTALLER Unavailable Unavailable [place], Pauline REMOTE CONTROL MIRROR INSTALLER Unavailable Unavailable [place], Pauline REMOTE CONTROL MIRROR INSTALLER Unavailable Unavailable [place], Pauline REMOTE CONTROL MIRROR INSTALLER Unavailable Unavailable Truong, Pauline REMOTE CONTROL MIRROR INSTALLER Unavailable Unavailable Truong, Pauline REMOTE CONTROL MIRROR INSTALLER Unavailable Unavailable [place], Pauline REMOTE CONTROL MIRROR INSTALLER Unavailable Unavailable Truong, Pauline REMOTE CONTROL MIRROR INSTALLER Unavailable Unavailable Truong, Pauline REMOTE CONTROL MIRROR INSTALLER Unavailable Unavailable Truong, Pauline REMOTE CONTROL MIRROR INSTALLER Unavailable Unavailable Enedina Villegas MD Unavailable Unavailable Enedina Villegas MD Unavailable Unavailable Enedina Villegas MD Unavailable Unavailable Enedina Villegas MD Unavailable Unavailable Enedina Villegas MD Unavailable Unavailable Enedina Villegas MD Unavailable Unavailable Enedina Villegas MD Unavailable Unavailable Enedina Villegas MD Unavailable Unavailable Enedina Villegas MD Unavailable Unavailable Enedina Villegas MD Unavailable Unavailable Enedina Villegas MD Unavailable Unavailable Enedina Villegas MD Unavailable Unavailable Enedina Villegas MD Unavailable Unavailable NasriEnedina MD Unavailable Unavailable NasEnedina proctor MD Unavailable Unavailable NasriEnedina MD Unavailable Unavailable NasriEnedina MD Unavailable Unavailable Ali, Cassi PANDYA Unavailable Unavailable Ali, Cassi PANDYA Unavailable Unavailable Ali, Cassi PANDYA Unavailable Unavailable Ali, Cassi MD Unavailable Unavailable Ali, Cassi Unavailable Unavailable Ali, Cassi Unavailable Unavailable Ali, Cassi Unavailable Unavailable Ali, Cassi PANDYA Unavailable Unavailable Ali, Cassi PANDYA Unavailable Unavailable Ali, Cassi PANDYA Unavailable Unavailable Ali, Cassi Unavailable Unavailable Ali, Cassi MD Unavailable Unavailable Ali, Cassi MD Unavailable Unavailable Ali, Cassi MD Unavailable Unavailable Ali, Cassi MD Unavailable Unavailable Ali, Cassi MD Unavailable Unavailable Ali, Cassi Unavailable Unavailable Ali, Cassi PANDYA Unavailable Unavailable Ali, Cassi PANDYA Unavailable Unavailable Ali, Cassi MD Unavailable Unavailable Ali, Cassi MD Unavailable Unavailable Ali, Cassi MD Unavailable Unavailable Ali, Cassi MD Unavailable Unavailable Ali, Cassi Unavailable Unavailable Ali, Cassi PANDYA Unavailable Unavailable Ali, Cassi PANDYA Unavailable Unavailable Ali, Cassi PANDYA Unavailable Unavailable Ali, Cassi PANDYA Unavailable Unavailable Ali, Cassi PANDYA Unavailable Unavailable Ali, Cassi PANDYA Unavailable Unavailable Ali, Cassi Unavailable Unavailable Ali, Cassi PANDYA Unavailable Unavailable Ali, Cassi PANDYA Unavailable Unavailable Ali, Cassi PANDYA Unavailable Unavailable Ali, Cassi PANDYA Unavailable Unavailable Ali, Cassi PANDYA Unavailable Unavailable Ali, Cassi PANDYA Unavailable Unavailable Ali, Cassi PANDYA Unavailable Unavailable Ali, Cassi PANDYA Unavailable Unavailable Ali, Cassi PANDYA Unavailable Unavailable Ali, Cassi PANDYA Unavailable Unavailable Ali, Cassi PANDYA Unavailable Unavailable Ali, Cassi PANDYA Unavailable Unavailable Ali, Cassi PANDYA Unavailable Unavailable Ali, Cassi PANDYA Unavailable Unavailable Ali, Cassi PANDYA Unavailable Unavailable Ali, Cassi PANDYA Unavailable Unavailable Ali, Cassi PANDYA Unavailable Unavailable Ali, Cassi PANDYA Unavailable Unavailable Ali, Cassi MD Unavailable Unavailable Carguello, J Geraldo DO Unavailable Unavailable Carguello, J Geraldo DO Unavailable Unavailable Carguello, J Geraldo DO Unavailable Unavailable Carguello, J Geraldo DO Unavailable Unavailable Carguello, J Geraldo DO Unavailable Unavailable Carguello, J Geraldo DO Unavailable Unavailable Carguello, J Geraldo DO Unavailable Unavailable Carguello, J Geraldo DO Unavailable Unavailable Carguello, J Geraldo DO Unavailable Unavailable Carguello, J Geraldo DO Unavailable Unavailable Carguello, J Geraldo DO Unavailable Unavailable Carguello, J Geraldo DO Unavailable Unavailable Carguello J Geraldo DO Unavailable Unavailable Carguello J Geraldo DO Unavailable Unavailable Carguello J Geraldo DO Unavailable Unavailable Carguello J Geraldo DO Unavailable Unavailable Carguello J Geraldo DO Unavailable Unavailable Carguello J Geraldo DO Unavailable Unavailable Carguello, J Geraldo DO Unavailable Unavailable Carguello, J Geraldo DO Unavailable Unavailable Carguello, J Geraldo DO Unavailable Unavailable Carguello, J Geraldo DO Unavailable Unavailable Carguello J Geraldo DO Unavailable Unavailable Carguello J Geraldo DO Unavailable Unavailable Carguello, J Geraldo DO Unavailable Unavailable Carguello, J Geraldo DO Unavailable Unavailable Carguello, J Geraldo DO Unavailable Unavailable Carguello J Geraldo DO Unavailable Unavailable Carguello, J Geraldo DO Unavailable Unavailable Carguello, J Geraldo DO Unavailable Unavailable Carguello J Geraldo DO Unavailable Unavailable Carguello, J Geraldo DO Unavailable Unavailable Carguello, J Geraldo DO Unavailable Unavailable Carguello J Geraldo DO Unavailable Unavailable Carguello J Geraldo DO Unavailable Unavailable Carguello J Geraldo DO Unavailable Unavailable Carguello J Geraldo DO Unavailable Unavailable Carguello J Geraldo DO Unavailable Unavailable Carguello J Geraldo DO Unavailable Unavailable Carguello J Geraldo DO Unavailable Unavailable Carguello J Geraldo DO Unavailable Unavailable Carguello J Geraldo DO Unavailable Unavailable Carguello J Geraldo DO Unavailable Unavailable Carguello J Geraldo DO Unavailable Unavailable Carguello J Geraldo DO Unavailable Unavailable Carguello J Geraldo DO Unavailable Unavailable Carguello J Geraldo DO Unavailable Unavailable Carguello J Geraldo DO Unavailable Unavailable Carguello J Geraldo DO Unavailable Unavailable Carguello J Geraldo DO Unavailable Unavailable Carguello J Geraldo DO Unavailable Unavailable Carguello J Geraldo DO Unavailable Unavailable Carguello J Geraldo DO Unavailable Unavailable Carguello J Geraldo DO Unavailable Unavailable Carguello J Geraldo DO Unavailable Unavailable Carguello J Geraldo DO Unavailable Unavailable Carguello J Geraldo DO Unavailable Unavailable Carguello J Geraldo DO Unavailable Unavailable Carguello J Geraldo DO Unavailable Unavailable Carguello J Geraldo DO Unavailable Unavailable Carguello J Geraldo DO Unavailable Unavailable Carguello, J Geraldo DO Unavailable Unavailable Carguello, J Geraldo DO Unavailable Unavailable Carguello, J Geraldo DO Unavailable Unavailable Carguello, J Geraldo DO Unavailable Unavailable Carguello, J Geraldo DO Unavailable Unavailable Carguello, J Geraldo DO Unavailable Unavailable Carguello, J Geraldo DO Unavailable Unavailable Carguello, J Geraldo DO Unavailable Unavailable Carguello, J Geraldo DO Unavailable Unavailable Carguello, J Geraldo DO Unavailable Unavailable Carguello, J Geraldo DO Unavailable Unavailable Carguello, J Geraldo DO Unavailable Unavailable Carguello, J Geraldo DO Unavailable Unavailable Carguello, J Geraldo DO Unavailable Unavailable Carguello, J Geraldo DO Unavailable Unavailable Carguello, J Geraldo DO Unavailable Unavailable Carguello, J Geraldo DO Unavailable Unavailable Carguello, J Geraldo DO Unavailable Unavailable Carguello, J Geraldo DO Unavailable Unavailable Carguello, J Geraldo DO Unavailable Unavailable Carguello, J Geraldo DO Unavailable Unavailable Carguello, J Geraldo DO Unavailable Unavailable Carguello, J Geraldo DO Unavailable Unavailable Carguello, J Geraldo DO Unavailable Unavailable Carguello, J Geraldo DO Unavailable Unavailable Carguello, J Geraldo DO Unavailable Unavailable Carguello, J Geraldo DO Unavailable Unavailable Pentecostal, Jeana Unavailable Unavailable Santa AMADO Unavailable Unavailable Talat Lu Unavailable Unavailable Talat Lu Unavailable Unavailable IDANIA SHEN MD Unavailable Unavailable IDANIA SHEN MD Unavailable Unavailable IDANIA SHEN MD Unavailable Unavailable IDANIA SHEN MD Unavailable Unavailable IDANIA SHEN MD Unavailable Unavailable IDANIA SHEN MD Unavailable Unavailable IDANIA SHEN MD Unavailable Unavailable IDANIA SHEN MD Unavailable Unavailable IDANIA SHEN MD Unavailable Unavailable IDANIA SHEN MD Unavailable Unavailable IDANIA SHEN MD Unavailable Unavailable IDANIA SHEN MD Unavailable Unavailable IDANIA SHEN MD Unavailable Unavailable IDANIA SHEN MD Unavailable Unavailable IDANIA SHEN MD Unavailable Unavailable IDANIA SHEN MD Unavailable Unavailable IDANIA SHEN MD Unavailable Unavailable IDANIA SHEN MD Unavailable Unavailable IDANIA SHEN MD Unavailable Unavailable IDANIA SHEN MD Unavailable Unavailable KHAIRALLAH, RAMZI MD Unavailable Unavailable KHAIRALLAH, RAMZI MD Unavailable Unavailable KHAIRALLAH, RAMZI MD Unavailable Unavailable KHAIRALLAH, RAMZI MD Unavailable Unavailable KHAIRALLAH, RAMZI MD Unavailable Unavailable KHAIRALLAH, RAMZI MD Unavailable Unavailable KHAIRALLAH, RAMZI MD Unavailable Unavailable KHAIRALLAH, RAMZI MD Unavailable Unavailable KHAIRALLAH, RAMZI MD Unavailable Unavailable KHAIRALLAH, RAMZI MD Unavailable Unavailable KHAIRALLAH, RAMZI MD Unavailable Unavailable KHAIRALLAH, RAMZI MD Unavailable Unavailable KHAIRALLAH, RAMZI MD Unavailable Unavailable KHAIRALLAH, RAMZI MD Unavailable Unavailable KHAIRALLAH, RAMZI MD Unavailable Unavailable KHAIRALLAH, RAMZI MD Unavailable Unavailable KHAIRALLAH, RAMZI MD Unavailable Unavailable KHAIRALLAH, RAMZI MD Unavailable Unavailable KHAIRALLAH, RAMZI MD Unavailable Unavailable KHAIRALLAH, RAMZI MD Unavailable Unavailable KHAIRALLAH, RAMZI MD Unavailable Unavailable KHAIRALLAH, RAMZI MD Unavailable Unavailable KHAIRALLAH, RAMZI MD Unavailable Unavailable KHAIRALLAH, RAMZI MD Unavailable Unavailable KHAIRALLAH, RAMZI MD Unavailable Unavailable KHAIRALLAH, RAMZI MD Unavailable Unavailable KHAIRALLAH, RAMZI MD Unavailable Unavailable KHAIRALLAH, RAMZI MD Unavailable Unavailable KHAIRALLAH, RAMZI MD Unavailable Unavailable KHAIRALLAH, RAMZI MD Unavailable Unavailable KHAIRALLAH, RAMZI MD Unavailable Unavailable KHAIRALLAH, RAMZI MD Unavailable Unavailable KHAIRALLAH, RAMZI MD Unavailable Unavailable KHAIRALLAH, RAMZI MD Unavailable Unavailable KHAIRALLAH, RAMZI MD Unavailable Unavailable KHAIRALLAH, RAMZI MD Unavailable Unavailable KHAIRALLAH, RAMZI MD Unavailable Unavailable KHAIRALLAH, RAMZI MD Unavailable Unavailable KHAIRALLAH, RAMZI MD Unavailable Unavailable KHAIRALLAH, RAMZI MD Unavailable Unavailable KHAIRALLAH, RAMZI MD Unavailable Unavailable KHAIRALLAH, RAMZI MD Unavailable Unavailable KHAIRALLAH, RAMZI MD Unavailable Unavailable KHAIRALLAH, RAMZI MD Unavailable Unavailable KHAIRALLAH, RAMZI MD Unavailable Unavailable KHAIRALLAH, RAMZI MD Unavailable Unavailable KHAIRALLAH, RAMZI MD Unavailable Unavailable KHAIRALLAH, RAMZI MD Unavailable Unavailable KHAIRALLAH, RAMZI MD Unavailable Unavailable KHAIRALLAH, RAMZI MD Unavailable Unavailable KHAIRALLAH, RAMZI MD Unavailable Unavailable KHAIRALLAH, RAMZI MD Unavailable Unavailable KHAIRALLAH, RAMZI MD Unavailable Unavailable KHAIRALLAH, RAMZI MD Unavailable Unavailable KHAIRALLAH, RAMZI MD Unavailable Unavailable KHAIRALLAH, RAMZI MD Unavailable Unavailable KHAIRALLAH, RAMZI MD Unavailable Unavailable KHAIRALLAH, RAMZI MD Unavailable Unavailable KHAIRALLAH, RAMZI MD Unavailable Unavailable KHAIRALLAH, RAMZI MD Unavailable Unavailable KHAIRALLAH, RAMZI MD Unavailable Unavailable KHAIRALLAH, RAMZI MD Unavailable Unavailable KHAIRALLAH, RAMZI MD Unavailable Unavailable KHAIRALLAH, RAMZI MD Unavailable Unavailable KHAIRALLAH, RAMZI MD Unavailable Unavailable KHAIRALLAH, RAMZI MD Unavailable Unavailable KHAIRALLAH, RAMZI MD Unavailable Unavailable KHAIRALLAH, RAMZI MD Unavailable Unavailable Farhana JAUREGUI Unavailable Unavailable ALEXIA ., Audie ORDONEZ . Unavailable Unavailable Re-disclosure Warning The records that you are about to access may contain information from federally-assisted alcohol or drug abuse programs. If such information is present, then the following federally mandated warning applies: This information has been disclosed to you from records protected by federal confidentiality rules (42 CFR part 2). The federal rules prohibit you from making any further disclosure of this information unless further disclosure is expressly permitted by the written consent of the person to whom it pertains or as otherwise permitted by 42 CFR part 2. A general authorization for the release of medical or other information is NOT sufficient for this purpose. The Federal rules restrict any use of the information to criminally investigate or prosecute any alcohol or drug abuse patient.The records that you are about to access may contain highly sensitive health information, the redisclosure of which is protected by Article 27-F of the [facility] Public Health law. If you continue you may have access to information: Regarding HIV / AIDS; Provided by facilities licensed or operated by the [facility] Office of Mental Health; or Provided by the [facility] Office for People With Developmental Disabilities. If such information is present, then the following [facility] mandated warning applies: This information has been disclosed to you from confidential records which are protected by state law. State law prohibits you from making any further disclosure of this information without the specific written consent of the person to whom it pertains, or as otherwise permitted by law. Any unauthorized further disclosure in violation of state law may result in a fine or assisted sentence or both. A general authorization for the release of medical or other information is NOT sufficient authorization for further disc losure. 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 Status Observation Descr iption Data Source(s) packet given Pt Bill of Rights, Priv Prac, Ad Dir completed packet given Pt Bill of Rights, Priv Prac, Ad Dir [facility] ([facility]) Note: Pt declined AD packet Family History Family Member Name Family Member Gender Family Member Status Date o f Status Description Data Source(s) Unknown Female Problem (finding) 11/12/2016 12:00:00 AM EDT [facility] ([facility]) Encounters Encounter Providers Location Date Indications Data Source(s ) Outpatient Attender: CHEPE Butlerender: CHEPE JAUREGUI 07/10/2021 12:00:00 AM [facility] <td ID="encounterTypeDescriptionID0">Acu te</td><td>Enedina Villegas MD</td><td></td><td>06/12/2021</td><td>4:02PM</td><td>11:59PM</td><td></td>Unkno Attender: Enedina Villegas MD 06/12/2021 04:0 2:00 PM EDT - 06/12/2021 11:59:00 PM EDT [facility] ([facility]) Outpatient Attender: Geraldo Barclay DO 06/12/2021 02:35:00 PM EDT N63.12 Unspecified lump in the right breast, upper [facility] N63.12 Unspecified lump in the right chetan ast, upper <td ID="encounterTypeDescriptionID0">Acu te L3</td><td>Enedina Villegas MD</td><td>[facility]</td><td>06/07/2021</td><td>10:04AM</td><td>10:47AM</td><td><content ID="encounterDiagnosisID0-0">Breast Lump Or Mass</content></td>Outpatient Attender: Enedina Villegas MD [facility] 06/07/2021 10:04:00 AM EDT - 06/07/2021 10:47:05 AM EDT Breast Lump Or Mass [facility] ([facility]) Breast Lump Or Mass Outpatient Attender: CHEPE King: CHEPE JAUREGUI 05/10/2021 12:00:00 AM EDT [facility] Outpatient Attender: Cassi Soto MD Main office - [place] 04/19/2021 08:45:00 AM EDT [facility]) Outpatient Attender: MELIA AMADO [address] [place] [address] 021 12:00:00 AM EDT - 04/09/2021 11:32:05 AM EDT [facility] Outpatient Attender: CHEPE King: CHEPE JAUREGUI [address] [place] [address] 03/25/2021 12:00:00 AM EDT - 03/25/2021 10:44:21 AM EDT [facility] Outpatient Attender: CHEPE King: CHEPE JAUREGUI [address] [place] [address] 02/27/2021 12:00:00 AM EDT - 02/27/2021 04:45:13 PM EDT [facility] Outpatient Attender: Talat Lu [facility] Jeana Greene [address] [place] [address] 02/14/20 12:00:00 AM EDT - 02/13/2021 01:34:42 PM [facility] Outpatient Attender: Geraldo Barclay DO 02/11/2021 11:35 :[address] [facility] Outpatient Attender: Pauline Guerin NP 02/08/2021 03:52:[address] [facility] <td ID="encounterTypeDescriptionID0">[facility]</td><td>Pauline Guerin NP</td><td>[facility]</td><td>02/08/2021</td><td>1:52PM</td><td>3:35PM</td><td><content ID="encounterDiagnosisID0-0">Contraceptive Surveillance</content>, <content ID="encounterDiagnosisID0-1">Epilepsy Generalized</content>, <content ID="encounterDiagnosisID0-2">Anemia</content></td>Unknown Attender: Pauline Guerin [facility] 02/08/2021 01:52:00 PM EDT - 02/08/2021 03:35:17 PM EDT AnemiaAnemiaContraceptive SurveillanceCo ntraceptive SurveillanceEpilepsy GeneralizedEpilepsy Generalized [facility] ([facility]) Anemia Anemia Contraceptive Surveillance Contraceptive Surveillance Epilepsy Generalized Epilepsy Generalized Outpatient Attender: Talat Lu [id number] 021 12:00:00 AM EDT - 01/31/2021 09:36:40 AM EDT [facility] Emergency Attender: MERY HALE . [id number] 11/2020 12:00:00 AM EDT - 01/26/2021 03:54:00 AM EDT Dislocation of tooth, initial encounter [facility] Dislocation of tooth, initial encounter Patient discharged. Outpatient Attender: Cassi Soto MD Main office - [place] 10/31/2020 11:00:00 AM EST [facility] ([facility]) Attender: IDANIA SHEN MD [facility] 09/04/2020 07:09:00 PM EST - 09/04/2020 07:09:00 PM EST [facility] ( [facility]) Outpatient Attender: Cassi Soto MD Main office - [place] 04/18/2020 11:15:00 AM EDT [facility] ([facility]) Immunizations Vaccine Date Status Description Data Source(s) COVID-19 VACCINE Moderna 01/04/2021 12:00:00 AM EDT completed [facility] Vaccine Series Complete: YESThis Data wa s Submitted to [facility] Via [employer]. COVID-19 VACCINE Moderna 12/07/2020 12:00:00 AM EDT completed [facility] Vaccine Series Complete: NOThis Data was Submitted to [facility] Via [employer]. Medications Medication Brand Name Start Date Product Form Dose Route Admi nistrative Instructions Pharmacy Instructions Status Indications Reaction Description Data Source(s) topiramate 50 MG Oral Tablet Topiramate 04/19/2021 12:00:00 AM EDT active [facility] ([facility] ) NITROFURANTOIN, MACROCRYSTALS 25 MG / Ni trofurantoin, Monohydrate 75 MG Oral Capsule [Macrobid] Macrobid 100 MG Oral Capsule Macrobid 100 MG Oral Capsule 02/12/2021 12:00:00 AM EDT 1 active nitrofurantoin, macrocrystals 25 MG / nitrofurantoin, monohydrate 75 MG Oral Capsule [Macrobid] [facility] ([facility]) Ethinyl Estradiol 0.03 MG / Levonorgestr el 0.15 MG Oral Tablet Kurvelo 0.15-30 MG-MCG Oral Tablet Kurvelo 0.15-30 MG-MCG Oral Tablet 02/11/2021 12:00:00 AM EDT active [facility] Ethinyl Estradiol 0.03 MG / Levonorgestr el 0.15 MG Oral Tablet Levonorgestrel- Ethinyl Estrad 0.15-30 MG-MCG Oral Tablet Levonorgestrel-Ethinyl Estrad 0.15-30 MG-MCG Oral Tablet 02/08/2021 12:00:00 AM EDT active ethinyl estradiol 0.03 MG / levonorgestrel 0.15 MG Oral Tablet [facility] ([facility]) Acetaminophen 325 MG Oral Tablet acetaminophen (TYLENO L) tablet 650 mg acetaminophen (TYLENOL) tablet 650 mg 01/26/2021 12:00:00 AM EDT 65 0 mg Oral completed 650 mg, Oral, O nce, On 01/26/21 at 0000, For 1 dose
Maximum daily dose of acetaminophen is 3,000 mg from all sources in 24 hours.
[facility] Medication administered onsite 24 HR Divalproex Sodium 500 MG Extended Release Oral Tablet divalproex (DEPAKOTE) 24 hr tablet 500 mg divalproex (DEPAKOTE) 24 hr tablet 500 mg 01/26/2021 12:00:00 AM EDT 500 mg Oral completed 500 mg, Oral, Once, On 01/26/21 at 0000, For 1 dose
Do not crush or chew
[facility] Medication administered onsite Lacosamide (VIMPAT) tablet 200 mg 01/26/2021 12:00:00 AM EDT 200 mg Oral completed 200 mg, Oral, Once, On Sat at 0000, For 1 dose [facility] Medication administered onsite clobazam 10 MG Oral Tablet cloBAZam (ONFI) tablet 5 mg cloBAZam (ONFI) tablet 5 mg 01/26/2021 12:00:00 AM EDT 5 mg Oral completed 5 mg, Oral, Once, On 01/26/21 at 0000, For 1 dose [facility] Medication administered onsite cloBAZam 5 MG Oral Film cloBAZam 5 MG Oral Film 11/06/2020 12:00:00 A M EDT 1 aborted clobazam 5 MG Oral F ilm [facility] clobazam 10 MG Oral Tablet Clobazam 10/31/2020 12:00:00 AM EST completed [facility] ([facility], ) lacosamide 150 MG Oral Tablet [Vimpat] Vimpat 150 MG O ral Tablet Vimpat 150 MG Oral Tablet 04/18/2020 12:00:00 AM EDT 1 active lacosamide 150 MG Oral Tablet [Vimpat] [facility] Trivora (28) 50-30/75-40/ 125-30 MCG Oral Tablet Trivo ra (28) 50-30/75-40/ 125- 30 MCG Oral Tablet 09/20/2019 12:00:00 AM EST aborted {6 (ethinyl estradiol 0.03 MG / levonorgestrel 0.05 MG Oral Tablet) / 10 (ethinyl estradiol 0.03 MG / levonorgestrel 0.125 MG Oral Tablet) / 5 (ethinyl estradiol 0.04 MG / levonorgestrel 0.075 MG Oral Tablet) / 7 (inert ingredients 1 MG Oral Tablet) } Pack [Trivora 28 Day] [facility] ([facility]) Insurance Providers Payer name Policy type / Coverage type Policy ID Covered republican ID Covered republican's relationship to gann Policy Gann Plan Information EXCELLUS I [id number] Self [id number] [facility] MEDICAID [id number] Aisha 7 [id number] MEDICAID [id number] Self [id number] [place] [place] [id number] SP [id number] EXCELLUS C [id number] Child [id number] BLUE CROSS [id number] [employer] of [facility] Other 302/802 [id number] Family Dependent Nick Muse 302/802 BC[employer] of [facility] Other 302/802 [id number] Family Dependent Nick Muse 302/802 BC[employer] of [facility] Other 302/802 [id number] Family Dependent Nick Muse 302/802 BC[employer] of [facility] Other 302/802 [id number] Family Dependent Nick Muse 302/802 [employer] of [facility] Other 302/802 [id number] Family Dependent Nick Muse 302/802 BC[employer] of [facility] Other 302/802 [id number] Family Dependent Nick Muse 302/802 [employer] of [facility] Other 302/802 [id number] Family Dependent Nick Muse 302/802 [employer] of [facility] Other 302/802 [id number] Family Dependent Nick Muse 302/802 [employer] of [facility] Other 302/802 [id number] Family Dependent Nick Muse 302/802 BLUE CROSS [id number] SELF PAY [employer] of [facility] Other 302/802 [id number] Family Dependent Nick Muse 302/802 BC[employer] of [facility] Other 302/802 [id number] Family Dependent Nick Muse 302/802 DENTAL U [id number] Child [id number] SELF PAY [place] [place]OSS [id number] SELF PAY [employer] [place] [id number] BLUE CROSS [id number] SELF PAY Medicaid of [place] Other 0 [id number] Self 0 BCBS OF [place] WATN 306/806 [id number] BC[place] OF [place] WAT[place] 306/806 [id number] [id number] Medicaid [facility] Other 0 [id number] Self 0 BLUE CROSS [id number] MARYBETH [id number] SP [id number] 200 MARYBEHT I [id number] Self [id number] BS Of [place] Commercial [id number] Family Dependent BCBS OF [place] 306/806 [id number] FA2 [id number] Problems, Conditions, and Diagnoses Code Display Name Description Problem Type Effective Dates Data Source(s) N39.0 Urinary tract infection, site not specif ied N39.0 - Urinary tract infection, site not specified Diagnosis 02/11/2021 11:35:00 AM EDT [employer] Z30.40 Encounter for surveillance of contracept gavino, unspecified Z30.40 - Encounter for surveillance of contraceptives, unspecified Diagnosis 02/08/2021 03:52:00 PM EDT [facility] 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 9 - Iron deficiency anemia, unspecified Diagnosis 02/08/2021 03:52:00 PM EDT [facility] W23.1XXA Caught, crushed, jammed, or pinched between stationary objects, initial encounter Caught, crushed, jammed, or pinched betw een stationary objects, initial encounter Diagnosis 01/25/2021 11:27:00 PM EDT [facility] G40.919 Epilepsy, unspecified, intractable, with out status epilepticus Epilepsy, unspecified, intractable, without status epilepticus Diagnosis 0 01/25/2021 11:27:00 PM EDT [facility] R56.9 Unspecified convulsions Unspecified convulsions Diagno sis 01/25/2021 11:27:00 PM EDT [facility] S03.2XXA Dislocation of tooth, initial encounter Dislocation of tooth, initial encounter Diagnosis 01/25/2021 11:27:00 PM EDT [facility] seizure seizure Diagnosis 01/25/2021 11:27:00 PM ED T [facility] Surgeries/Procedures Procedure Description Date Indications Data Source(s) Surgical / procedural history vagal nerve stimulator in 2017 Surgical / procedural history vagal nerve stimulator in 2017 [employer] 06/07/2021 12:00:00 AM EDT [facility]) History of surgery (situation) No prior surgery 06/07/2021 12:00:00 AM EDT [facility]) Summary provided electronically in CCDA format & reasonable certainty of receipt 06/07/2021 12:00:00 AM EDT - 06/07/2021 12:00:00 AM EDT [facility]) Clinical summary provided to patient 12:00:00 AM EDT - 06/07/2021 12:00:00 AM EDT [facility]) Transition in care medication list update 06/07/2021 12:00:00 AM EDT - 06/07/2021 12:00:00 AM EDT [facility]) OFFICE OUTPATIENT VISIT 40 MINUTES 04/19/2021 12:00:00 AM EDT [facility] ([facility]) 27 NH INTRAORAL PERIAPICAL FIRST F <td>27 NH INTRAORAL PERIAPICAL FIRST F</td><td>Routine</td><td>04/09/2021 9:30 AM EDT</td><td> Encounter for dental examination</td><td></td> 04/09/2021 09:30:00 AM EDT Encounter for dental examination [facility] Encounter for dental examination NH RE-EVAL,EST PT,PROBLEM FOCUS <td>NH RE-EVAL,EST PT, PROBLEM FOCUS</td><td>Routine</td><td>04/09/2021 9:30 AM EDT</td><td> Encounter for dental examination</td><td></td> 04/09/2021 09:30:00 AM EDT Encounter for dental examination [facility] Encounter for dental examination NH LIMIT ORAL EVAL PROBLM FOCUS <td>NH LIMIT ORAL EVAL PROBLM FOCUS</td><td>Routine</td><td>03/25/2021 10:00 AM EDT</td><td> Encounter for dental examination</td><td></td> 03/25/2021 10:00:00 AM EDT Encounter for dental examination [facility] Encounter for dental examination Noel NH LIMIT ORAL EVAL PROBLM FOCUS <td>Noel NH LIMIT ORAL EVAL PROBLM FOCUS</td><td>Routine</td><td>02/27/2021 3:00 PM EDT</td><td> Dental trauma, subsequent encounter</td><td></td> 02/27/2021 03:00:00 PM EDT Dental trauma, subsequent encounter [facility] Dental trauma, subsequent encounter 23 NH INTRAORAL PERIAPICAL EA ADD <td>23 NH INTRAORAL PERIAPICAL EA ADD</td><td>Routine</td><td>02/13/2021 12:45 PM EDT</td><td> Encounter for dental examination Dental trauma, subsequent encounter</td><td></td> 02/13/2021 12:45:00 PM EDT Dental trauma, subsequent encounterEncounter for dental examination [facility] Dental trauma, subsequent encounter Encounter for dental examination 26 NH INTRAORAL PERIAPICAL FIRST F <td>26 NH INTRAORAL PERIAPICAL FIRST F</td><td>Routine</td><td>02/13/2021 12:45 PM EDT</td><td> Encounter for dental examination Dental trauma, subsequent encounter</td><td></td> 02/13/2021 12:45:00 PM EDT Dental trauma, subsequent encounterEncounter for dental examination [facility] Dental trauma, subsequent encounter Encounter for dental examination Noel NH LIMIT ORAL EVAL PROBLM FOCUS <td>Noel NH LIMIT ORAL EVAL PROBLM FOCUS</td><td>Routine</td><td>02/13/2021 12:45 PM EDT</td><td> Encounter for dental examination Dental trauma, subsequent encounter</td><td></td> 02/13/2021 12:45:00 PM EDT Dental trauma, subsequent encounterEncounter for dental examination [facility] Dental trauma, subsequent encounter Encounter for dental examination History of surgery (situation) No prior surgery 02/08/2021 12:00:00 AM EDT [facility]) Surgical / procedural history vagal nerve stimulator in 2017 Surgical / procedural history vagal nerve stimulator in 2018 [employer]win[facility] 02/08/2021 12:00:00 AM EDT [facility]) Summary provided electronically in CCDA format & reasonable certainty of receipt 02/08/2021 12:00:00 AM EDT - 02/08/2021 12:00:00 AM EDT [facility]) Clinical summary provided to patient 12:00:00 AM EDT - 02/08/2021 12:00:00 AM EDT [facility]) Clinical summary provided to patient 12:00:00 AM EDT - 02/08/2021 12:00:00 AM EDT [facility]) Influenza vaccination declined (situation) 02/08/2021 12:00:00 AM EDT - 02/08/2021 12:00:00 AM EDT [facility]) medical regimen review 02/08/2021 12:00: 00 AM EDT - 02/08/2021 12:00:00 AM EDT [facility]) Transition in care medication list update 02/08/2021 12:00:00 AM EDT - 02/08/2021 12:00:00 AM EDT [facility]) continue current medication except where otherwise noted 02/08/2021 12:00:00 AM EDT - 02/08/2021 12:00:00 AM EDT [facility] records management 02/07/2021 - Chart Prep Performed 02/07/2021 12:00:00 AM EDT - 02/07/2021 12:00:00 AM EDT [facility] ) 24 NH INTRAORAL PERIAPICAL FIRST F <td>24 NH INTRAORAL PERIAPICAL FIRST F</td><td>Routine</td><td>01/31/2021 8:30 AM EDT</td><td> Dental trauma, subsequent encounter</td><td></td> 01/31/2021 08:30:00 AM EDT Dental trauma, subsequent encounter [facility] Dental trauma, subsequent encounter Noel NH LIMIT ORAL EVAL PROBLM FOCUS <td>Noel NH LIMIT ORAL EVAL PROBLM FOCUS</td><td>Routine</td><td>01/31/2021 8:30 AM EDT</td><td> Dental trauma, subsequent encounter</td><td></td> 01/31/2021 08:30:00 AM EDT Dental trauma, subsequent encounter [facility] Dental trauma, subsequent encounter GLUCOSE QUANTITATIVE BLOOD XCPT REAGENT STRIP <td>POCT GLUCOSE, DOCKED</td><td>Routine</td><td>01/25/2021 10:53 PM EDT</td><td></td><td> </td> 01/25/2021 10:53:00 PM EDT [facility] OFFICE OUTPATIENT VISIT 25 MINUTES 10/31/2020 12:00:00 AM EST [facility] ([facility]) Results ID Date Data Source [id number] 06/12/2021 03:21:00 [place] [address] Patient Name: Dinorah Reyes Exam Date: 06/12/21 : 1995 Ordering Doctor: Geraldo Barclay DO Attending Doctor: Geraldo Barclay DO CC: RIGHT BREAST ULTRASOUND, COMPLETE INDICATION: Palpable right breast lump at 3-5 o'clock. COMPARISON: None. TECHNIQUE: High resolution real-time ultrasound scanning of the right breast was performed through the entire breast, retroareolar and axillary regions. FINDINGS: There is a homogenous fibroglandular background echotexture. In the area of palpable concern within the right breast, at the 3-5 o'clock location, there is an organized fluid collection with internal swirling debris. This measures 5.4 x 5.4 x 2.2 cm. The patient denies any overlying skin redness. However, on the available images, the overlying skin appears minimally thickened. The patient describes tenderness within this region. There is right axillary adenopathy with cortical thickness measuring 0.5 cm, favored to be reactive. IMPRESSION: 1. There is a complex fluid collection which corresponds with the area of palpable concern. This is favored to represent an abscess. 2. There is right axillary adenopathy, favored to be reactive. Recommend ultrasound-guided aspiration versus incision and drainage and antibiotic therapy. Recommend short-term follow-up with a right breast ultrasound in two weeks, after the completion of antibiotic treatment to evaluate for resolution. Unique SOLORIO from the office of Geraldo Barclay MD was notified of these results on 06/12/2021 3:53 PM EDT and will help coordinate patient care. These findings and recommendations were discussed with the patient at the conclusion of the examination. BI-RADS 3 - PROBABLY BENIGN - SHORT-INTERVAL FOLLOWUP SUGGESTED Professional interpretation performed at Dr. Oswald Block [facility] . End of diagnostic report: [id number] Signed: Miranda Sparks MD 06/12/21 1556 Interpreted by: Miranda SparksTranscribed by: Miranda Sparks Name Value Range Interpretation Code Description Data Maryam rce(s) Supporting Document(s) ID Date Data Source [id number] 04/24/2021 10:33:29 AM EDT [facility] Name Value Range Interpretation Code Description Data Maryam rce(s) Supporting Document(s) Progress Note [facility] ZVARHv2aIyXFDwZy75/FWSxuSXVkx1YnBKpvEAe2URzqJNYtY1IrBHS6sS8oIRY1TNbBMrQaDdOjXIPo [facility] [file] ExW6FQH0oCRbYv3OFKgjEsTBMxPgXR5DKFq= ID Date Data Source [id number] 04/24/2021 10:33:24 AM EDT [facility] Name Value Range Interpretation Code Description Data Maryam rce(s) Supporting Document(s) Progress Note [facility] JXPBEf9iWoMJUiKl81/EBCmqMXNri9FcBJfiKNs9PEsgESWaN0GnXUR7hC4bYRN5FHxUXtHiEbNzJIFc lbm [file] +5Bwq9+g7DiwMB3S/Tj+xqzu4wvWZDduqg7phHZQbFT2mu+5+iXn9eAKBiijqX9t0jf6EEUBp9N/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 [file] ICAgICAgICAgICAgICAgICAgICAgICAgICAgICAgICAgICAgICAgICAgICAgICAgICAgICAgICAgICAg ICAgICAgICAgICAgICAgICAgICAgICAgICAgICAgICAgICANCiAgICAgICAgICAgICAgICAgICAgICAg ICAgICAgICAgICAgICAgICAgICAgICAgICAgICAgIC AgICAgICAgICAgICAgICAgICAgICAgICAgICAgICAgICAgICAgICAgICAgICANCiAgICAgICAgICAgIC AgICAgICAgICAgICAgICAgICAgICAgICAgICAgICAgICAgICAgICAgICAgICAgICAgICAgICAgICAgIC AgICAgICAgICAgICAgICAgICAgICAgICAgICANCiAg ICAgICAgICAgICAgICAgICAgICAgICAgICAgICAgICAgICAgICAgICAgICAgICAgICAgICAgICAgICAg ICAgICAgICAgICAgICAgICAgICAgICAgICAgICAgICAgICAgICANCiAgICAgICAgICAgICAgICAgICAg ICAgICAgICAgICAgICAgICAgICAgICAgICAgICAgIC AgICAgICAgICAgICAgICAgICAgICAgICAgICAgICAgICAgICAgICAgICAgICAgICANCiAgICAgICAgIC AgICAgICAgICAgICAgICAgICAgICAgICAgICAgICAgICAgICAgICAgICAgICAgICAgICAgICAgICAgIC AgICAgICAgICAgICAgICAgICAgICAgICAgICAgICAN CiAgICAgICAgICAgICAgICAgICAgICAgICAgICAgICAgICAgICAgICAgICAgICAgICAgICAgICAgICAg ICAgICAgICAgICAgICAgICAgICAgICAgICAgICAgICAgICAgICAgICANCiAgICAgICAgICAgICAgICAg ICAgICAgICAgICAgICAgICAgICAgICAgICAgICAgIC AgICAgICAgICAgICAgICAgICAgICAgICAgICAgICAgICAgICAgICAgICAgICAgICAgICANCiAgICAgIC AgICAgICAgICAgICAgICAgICAgICAgICAgICAgICAgICAgICAgICAgICAgICAgICAgICAgICAgICAgIC AgICAgICAgICAgICAgICAgICAgICAgICAgICAgICAg ICANCiAgICAgICAgICAgICAgICAgICAgICAgICAgICAgICAgICAgICAgICAgICAgICAgICAgICAgICAg ICAgICAgICAgICAgICAgICAgICAgICAgICAgICAgICAgICAgICAgICAgICANCjw/wBRsL9mfqJGsuoN5 M7yxIb6SEt3KCF5bp6PyGLGtMTduixObQamJDkRlER JrQgaHKjx6SSsjWG4ZeHRcE5PvV3IkDMdnNR9ZLQMeGWUxcYRkSMAtZPCdJbH2EUMcUYkaFV2SaBEhTO ciCZRqZITdYD4EDKCxL019csBbIS3TMg2UZbYvLK8gdd7WVYyvEKKkWfuZYfy9BEkvDJ0QlGJciWMhOR JqSKKTVvGkR5pqf4TzFnOnLKMINYvkYJ8Id1ExpENb DQo+Ob4DJL9dp1HeWZodLXFcKQ8cxw7XLJsKUwBzI0EbsUnqJPItr5oyRQDlEZ5xcABkZVX0XNvkxwAs FCD9jQ33x8srJVEZJSFmQWEbNC3eCv9eJDLiAGA3PeKzPKGDRV0JTBUeYMKcrMOwIYAiAXZGKB0XUNyn VIQ4KSBesoFotKAdYZrnPE3LLBPcytXoODlqUCQNGQ o+La6GRN8le6AgANjqUBBlTT3hqr9ALTkXOzYaA1L7jQNzL8B5TSwlPt7CMGCySVHmVOckFRZSZOcsSP 2AXS8ctbB4HK0WxRJxJYSrLTJsfXQmPWs7W56zyLIdPExlTL9NDCO+Sergo+Lu8KVTExHEYpYCAgEiGzSW LIAkZyR0JrN0KAc4JnH9UnUN85lGiddfDkLFwbRM9D QO4kKWMkWCFKQO6FqXYneO5jxsKoGJPeWZCHMnQjO19xcVHmWEEsMGO7QGPzJq4ASIIrV0NgdkTffNqd psQnDTDoEGDYBD4RAVffzvJvuHAtdAfhZC91vAcgNH7IMd6BVqQmEE5jju9CrXUlPl3LYABhXr3LQFPx ZMQbOMHwHTL3IWJgUmIyARapTGScKAXdLVR1OCHnHH CaOG0TTrWhNZTpFRf5XBqfVNOsMQJxvf0LAIUoONRpYCYiAxDdQPBxQXEsBGxeFYAkATRrFSG0RLOfCU VsXX3NWcTbVEIfEAZwJVOiODKiBCIwmp2LUYQgCROcQiE6XEMkAFRqFNTvIFhqBFDjDRAiJRH5POVcHN LzPB3ZXeLzTLNcDOA1LDEyNHMmXZAovl4DXCFeBUWv Oyz3OKHrQPEnGZGbAEemJNSfPNY1GHHdXDJtPWStYY9YDhLqPYMcBHLdCOXnZFOvKSEpxq1OSPIjLYQb SSBnTRFsQXXlQTGjPQxpEJUuFHL3IZb0AVKxFQDoTU9HGrGwIEEfECB3TECcYHGqCVVaad5LTEZiRXLf EgDyUZNfRNKcVZVgXBqwJKXlCET5VdNwRTTgKAZhZR 6GGhVdWXNeZJu6NPsuCZAtMOXjdn4BWSGyGPEvHkq6CrFoXEEmDKFzHDvhFXIrVCO7KuA5WPMvMXPwQM 8UJxUmLGZnRNd3IBQbJEYlQSXwmo8TOJLiCEYkZJV2BxNeMXTsYBJrMGt7zoGutIKaCBd3DV9GC2Xcrp ZqLpFZRj0Ci033QDHbQPDnGl9GP5uvRq8vMQGtYSKE Od8STAd0GLFbFTEeZyv5GPTdJvKpLWKxVxWvEtCqAhS3OmkfEre+BYopRhI5QxT3BYblMjYlRbK3JdF0 DeJzQXNcNqPhPqQ3FB3xIINWJj7+MXnuiDCfeEmhWLZJYmW6WXDdSSeqNABBFc2P ID Date Data Source [id number] 03/25/2021 12:33:04 PM EDT [facility] Name Value Range Interpretation Code Description Data Maryam rce(s) Supporting Document(s) Progress Note [facility] DWPPYy5bWcSXCaLn19/XWGfaYOKbt3CaKLmrBJz1OCsjZNOzL3VxYVS4iX7nICK2WNbLGhDzLiImCXCe lbm [file] OTWuTNRoAWRxYZCwDaulN8EyKgF+JH1dQXn+Mp7Om3XmqrL1ntVtLDnzXOU0RK5QIDXBH4UNTr== ID Date Data Source [id number] 03/25/2021 12:32:59 PM EDT [facility] Name Value Range Interpretation Code Description Data Maryam rce(s) Supporting Document(s) Progress Note [facility] NCANAw7gGoOODcWw05/OAFwoFRWrl4JhEVzxBKo4OFcxEGLdZ0HxUST9wX8cJLQ8SCyVOjPkIfAyXPFg lbm [file] ICAgICAgICAgICAgICAgICAgICAgICAgICAgICAgIC AgICAgICAgICAgICAgICAgICAgICAgICAgICAgICAgICAgICAgDQogICAgICAgICAgICAgICAgICAgIC AgICAgICAgICAgICAgICAgICAgICAgICAgICAgICAgICAgICAgICAgICAgICAgICAgICAgICAgICAgIC AgICAgICAgICAgICAgICAgICAgDQogICAgICAgICAg ICAgICAgICAgICAgICAgICAgICAgICAgICAgICAgICAgICAgICAgICAgICAgICAgICAgICAgICAgICAg ICAgICAgICAgICAgICAgICAgICAgICAgICAgICAgDQogICAgICAgICAgICAgICAgICAgICAgICAgICAg ICAgICAgICAgICAgICAgICAgICAgICAgICAgICAgIC AgICAgICAgICAgICAgICAgICAgICAgICAgICAgICAgICAgICAgICAgDQogICAgICAgICAgICAgICAgIC AgICAgICAgICAgICAgICAgICAgICAgICAgICAgICAgICAgICAgICAgICAgICAgICAgICAgICAgICAgIC AgICAgICAgICAgICAgICAgICAgICAgDQogICAgICAg ICAgICAgICAgICAgICAgICAgICAgICAgICAgICAgICAgICAgICAgICAgICAgICAgICAgICAgICAgICAg ICAgICAgICAgICAgICAgICAgICAgICAgICAgICAgICAgDQogICAgICAgICAgICAgICAgICAgICAgICAg ICAgICAgICAgICAgICAgICAgICAgICAgICAgICAgIC AgICAgICAgICAgICAgICAgICAgICAgICAgICAgICAgICAgICAgICAgICAgDQogICAgICAgICAgICAgIC AgICAgICAgICAgICAgICAgICAgICAgICAgICAgICAgICAgICAgICAgICAgICAgICAgICAgICAgICAgIC AgICAgICAgICAgICAgICAgICAgICAgICAgDQogICAg ICAgICAgICAgICAgICAgICAgICAgICAgICAgICAgICAgICAgICAgICAgICAgICAgICAgICAgICAgICAg ICAgICAgICAgICAgICAgICAgICAgICAgICAgICAgICAgICAgDQogICAgICAgICAgICAgICAgICAgICAg ICAgICAgICAgICAgICAgICAgICAgICAgICAgICAgIC QmYHXcCYTwIFUsVCXiUCCyCODqAQAgXYHzSCKoVTIbEJHkUZEnHBEhRQFzHXIrKXn1U6zfRPMlJQGoUP 1fQUj3Bw1+GZwNPvZhKDC1suUqaM1FKB3mu7TnVIspVISrb2UoQXl6JX6NGXKpMQijIX0ICGagri1JSA XdSUGexMMIk2vxQgHuZWM8GEQzQhnlRI0GIMYaY9hu naNpAGNwTOUUZZ6AHaUpZ8PhwB82OIEWMq4+VRdvjpJvTtmKKuM2ITNhv7FhPFg8ZW4XLRYjEesvf7Fg OwBtYFBLDLcuNO7PMRH6QECiBXNaPb7DFENfM026jbRpIH9SDx0TQyUiJU0wqq2JVzHdSQVeCtvEUuo2 QUmuAC0RwFMhUOvFbk3tmcSmkuTOf2SoweTqdIUZIH G5uP1wITDVy30qcZviMATPZYZ0GSomGl4gSSZsITXjVmXrLUVQIC0GIEQfMFCatAIpEHViBOEQHQ6JVD paUTL6WTLeglKqzIFcYLgfDB2LTRRnnoVbSStgIVYTSSw+Ah7YMV2ge7EjJOwgHTRrWG8mvg7QHWnQNp KcU9A4zQWdQ7V4VFcdIk2FSHBsVLXxCKglTFCWBViu OJ1SXD8nwsT5FQ0LbAQuYPAyQIZaeSPoDNo5Z07lnCKoRFqnYR0IBQN+Sergo+Dq7JUUNdRSBfJYJrLeOc LPRYDqYxV4GsR3PXz6LqM2DaDL71kUqscvEqQMhoLO9LWD4sSFFaEMMNTE7OqNWtaC3msnIcYVQsNADU IrAqD98iyLTtBPIdNWA3LCSrBw3YNGExH2LrcpBzzQ vufpUvEQMhPCZHTW3LGFawewObhNCyzNwcQZ39pMunAJ5IRn4ECkHyYE8wux7MlEWiDe2NJVJfSn1LDM YiTUMhCNEyUSI2VQRbDpIfVRlqNHPiJLJxQLL1GJGkWRFwQN7ICkIyROUcOUw1PEKrNWXoWLPery5PCW GaYNGcYMOdTAAaMXXwATNnEWgrVTGqIDCfQGS2UZDr XMSlAR8KNoHyHKGdLRC0EbhvMECaLMTjsn0AOATdFQSlQvI7FeZoEZCuKAAgZSsdRMOxIKXaKjPjLSOt JSFsEA8WVnTwSGGhFUF5LCulQGQlAOOcsd7KGBDzQIDcJhv1TYBbQOEuTQEvHWlbTRBrXYQ3GTT8NSFx CFGuVN4QUvGtLXVhEKYbJipgORTdQCIkrh7WDCPaTY UcFTHjWOMpWPNkUPItWPtyCQHwBXL8XucwCYUwHZDiPY3JGxXqIVKpWMU2UVCaGETmTXBled6EUXRiUU UeZbCkWEOtNUJvHLDpGKuzOWKyODQ5MDM3CNEvIBGkCO8PHzBwEODtZWq3KEBuOQDxWZTfvm5PJORnBC QgPqo6LBRrPGPdLIOhOEyoBCOjRCX8WXU1CDLrZEPr PV6ZJoRwURGgVLd2EBVbIUSxPBVxaf7XVWRaHWJtJKU0EXJaJFOwSVWnYFj4puXpzEPiWZg9QW7PV3Jj lhLgZwZCFl4Xb986CYZyOXDmLb8ZT3ggMd1zXAIdXTVCQe7NNNi4OmebXqyvCHPuWHYbPlAaMPGhGjBm XAG7WULgTkbbNGN+XWv0JMC1IzXtUvMuS2IdLtK8Yr C8RSK9FBYhIoXpXEYkKg7sJKSSKg3+SBczaCRzySuiOLYNApM1WTmiZVloQEUTPy3N ID Date Data Source [id number] 02/28/2021 12:09:18 PM EDT [facility] Name Value Range Interpretation Code Description Data Maryam rce(s) Supporting Document(s) Progress Note [facility] YDCYLa0oMgXWJoSd98/GFTqeAATef0XaBFibVZh8OCzxQRBfF2EsHZQ1kR5zCTR1TAaDDlDeBuAzKsU5 lbm [file] DQo+Ok9Fa8EgprU0gdChWCdpZNKlNp4IDPMUH4EQGw== ID Date Data Source [id number] 02/28/2021 12:09:13 PM EDT [facility] Name Value Range Interpretation Code Description Data Maryam rce(s) Supporting Document(s) Progress Note [facility] IHHHBo0vTjJZTqHb88/KIKdkDZHza5ZoQVevBVi6OQseCOExH0XmYIN7yZ7jANM6WWwQTpOyUjTnToI4 lbm [file] == ID Date Data Source [id number] 02/13/2021 02:08:47 PM EDT [facility] Name Value Range Interpretation Code Description Data Maryam rce(s) Supporting Document(s) Progress Note [facility] YRHVWj2tLpGBTsXq93/TMUyyHOVqt9JpOYruTIg1NPurSTGiV9WwMZT1vS3mDNI5GWeRWoQvQlHfIdSu lbm [file] Qz6Aw1XcmgH9qnOzYFbhMQMoWQ3SYDYAU7KLAh== ID Date Data Source [id number] 02/13/2021 02:08:42 PM EDT [facility] Name Value Range Interpretation Code Description Data Maryam rce(s) Supporting Document(s) Progress Note [facility] ABFBSa8kKhQBDgBl33/TSXkqXAIwh4FyPTzzLZb2EJvfNLBwW1MuJWM2dW1rMVO6ZCyZEsNjEbThEwKn lbm [file] QyGR6OJo0FFlV9THC1uRDwTk2CDhU6RPDZTgXfQE6MJRw= ID Date Data Source [id number] 02/11/2021 02:00:00 PM T [facility] Run: 02/13/21 08 INTERFACED REPORT Name: Dinorah Reyes Age/Sex: / Location: [facility] Acct: [id number] Unit: [id number] Status: REG REF Room/Bed: Re02/11/21 Disch: Att Dr: Geraldo Barclay DO Specimen #: [id number] Ordered : 02/11/21 Collected : 02/11/21 By: AKASH Received: 02/11/21 By: KALPESH Source: URINE CC Specimen Description: Procedure Result - COLONY COUNT Final COLONY COUNT GREATER THAN 100,000 CFU/ML URINE CULTURE Final COLIFORMS MANY Organism 1 ESCHERICHIA COLI 1. ESCHERICHIA COLI GLENIS Int --------- --- AMIKACIN <=16 S AMPICILLIN <=8 S AMPICILLIN/SULBACTAM <=8/4 S AZTREONAM <=4 S CEFAZOLIN <=2 S CEFEPIME <=2 S CEFTAZIDIME <=1 S CEFTRIAXONE <=1 S CIPROFLOXACIN <=1 S GENTAMICIN <=4 S IMIPENEM <=1 S LEVOFLOXACIN <=2 S MEROPENEM <=1 S NITROFURANTOIN <=32 S TETRACYCLINE <=4 S TOBRAMYCIN <=4 S TRIMETHOPRIM/SULFAMETHOXAZOLE <=2/38 S PIPERACILLIN/TAZOBACTAM <=16 S S = Susceptible MS = Moderately Susceptible I = Intermediate R = Resistant MARCELLA = Beta Lactamase Positive GLENIS = MCG/mL BLANK = Not Tested or Advisable URINE CULTURE Preliminary (Corrected) COLIFORMS MANY END OF REPORT Name Value Range Interpretation Code Description Data Maryam rce(s) Supporting Document(s) COLOR,UR ML YELLOW A [facility] APPEARANCE,UR SL CLOUDY CLEAR [facility] PH,UR 5.0 5.0-8.0 [facility] SPECIFIC GRAVITY,UR 1.023 1.002-1.[address] [facility] PROTEIN,UR NEGATIVE MG/DL NEGATIVE [facility] GLUCOSE, UR NEGATIVE MG/DL NEGATIVE [facility] KETONES,UR NEGATIVE MG/DL NEGATIVE [facility] OCCULT BLOOD,UR SMALL NEGATIVE A [facility] NITRATE,UR POSITIVE NEGATIVE A [facility] LEUKOCYTE ESTERASE ,UR SMALL NEGATIVE A [facility] BILIRUBIN,UR NEGATIVE NEGATIVE [facility] UROBILINOGEN,UR 2.0 EU MG/DL NEG-0-1.[address] [facility] RBC,UR 1-2 PER HPF 0-2 [facility] WBC,UR 25-49 PER HPF <[address] [facility] URINE EPITH MANY PER/LPF FEW-MOD [facility] BACTERIA,UR MANY PER HPF NONE A [facility] MUCUS,UR MANY PER HPF NONE SEEN [facility] ID Date Data Source [id number] 02/13/2021 08:22:[address] [facility] Run: 02/13/21 08 INTERFACED REPORT Name: Dinorah Reyes Age/Sex: 26/F Location: [facility] Acct: [id number] Unit: [id number] Status: REG REF Room/Bed: Re02/11/21 Disch: Att Dr: Geraldo Barclay DO Specimen #: [id number] Ordered : 06/ Collected : 02/11/21 By: AKASH Received: 02/11/21 By: KALPESH Source: URINE CC Specimen Description: Procedure Result - COLONY COUNT Final COLONY COUNT GREATER THAN 100,000 CFU/ML URINE CULTURE Final COLIFORMS MANY Organism 1 ESCHERICHIA COLI 1. ESCHERICHIA COLI GLENIS Int --------- --- AMIKACIN <=16 S AMPICILLIN <=8 S AMPICILLIN/SULBACTAM <=8/4 S AZTREONAM <=4 S CEFAZOLIN <=2 S CEFEPIME <=2 S CEFTAZIDIME <=1 S CEFTRIAXONE <=1 S CIPROFLOXACIN <=1 S GENTAMICIN <=4 S IMIPENEM <=1 S LEVOFLOXACIN <=2 S MEROPENEM <=1 S NITROFURANTOIN <=32 S TETRACYCLINE <=4 S TOBRAMYCIN <=4 S TRIMETHOPRIM/SULFAMETHOXAZOLE <=2/38 S PIPERACILLIN/TAZOBACTAM <=16 S S = Susceptible MS = Moderately Susceptible I = Intermediate R = Resistant MARCELLA = Beta Lactamase Positive GLENIS = MCG/mL BLANK = Not Tested or Advisable URINE CULTURE Preliminary (Corrected) COLIFORMS MANY END OF REPORT Name Value Range Interpretation Code Description Data Maryam rce(s) Supporting Document(s) ID Date Data Source [id number] 02/08/2021 04:16:00 PM EDT [facility] Name Value Range Interpretation Code Description Data Maryam rce(s) Supporting Document(s) HCG NEG Normal HCG [facility]) ID Date Data Source [id number] 02/08/2021 04:06:00 PM EDT [facility] ([facility]) Name Value Range Interpretation Code Description Data Maryam rce(s) Supporting Document(s) Color of Exudate from wound TURBID Abnormal (alan lies to non-numeric results) Color [facility]) Glucose [Mass/volume] in Urine collected for unspecified duration N EG Normal Glucose [facility] ([facility]) Bili NEG Normal Bili [facility]) Blood [Presence] in Urine by Visual NEG Normal Bloo d [facility] ([facility]) Nitrite [Presence] in Urine by Test strip POS Abnormal (applies to non-numeric results) Nitrite [facility] ([facility]) Ketone 40 Abnormal (applies to non-numeric res ults) Ketone [facility] ([facility]) pH of Vaginal fluid by Test strip 6.0 Abnormal (applies to non-numeric results) pH [facility] ([facility]) Leukocytes [#/volume] by Microscopy high power field in Urine sediment collected for unspecified duration MOD Abnormal (applies to n on-numeric results) Leukocytes [facility] ([facility]) Protein [Mass/volume] in Saliva (oral fluid) NEG No rmal Protein [facility] ([facility]) Urobili 0.2 Normal Urobili [facility] ([facility]) Specific gravity of Pericardial fluid by Refractometry 1.025 Abnormal (applies to non-numeric results) Specific Ivor [facility] ([facility]) ID Date Data Source [id number] 02/08/2021 05:55:[address] [facility] Name Value Range Interpretation Code Description Data Maryam rce(s) Supporting Document(s) WHITE BLOOD COUNT 8.76 10^3/uL 4.00-10.[address] [facility] RED BLOOD COUNT 4.03 10^6/uL 3.90-5.[address] [facility] HEMO[facility]IN 11.5 G/DL 11.5-15.[address] [facility] HEMATOCRIT 36.2 % 35.0-46.[address] [facility] MCV 89.8 FL 80.0-100.[address] [facility] MCH 28.5 PG 27.0-34.[address] [facility] MCHC 31.8 G/DL 32-[address] [facility] RDW 12.8 % 11.5-14.[address] [facility] PLATELET COUNT 274 10^3/uL 130-[address] [facility] MPV 10.5 [place] 8.7-13.[address] [facility] GRAN % (AUTO) 65.3 % 42.0-75.[address] [facility] LYMPH % (AUTO) 25.8 % 20.0-51.[address] [facility] MONO % (AUTO) 6.7 % 2.0-15.[address] [facility] EOS % (AUTO) 1.7 % 0.0-11.[address] [facility] BASO % (AUTO) 0.2 % 0.0-2.[address] [facility] IG % (AUTO) 0.3 % 1.00-5.00 [facility] IG # (AUTO) 0.0 10^3/uL <0.5 [facility] GRAN # (AUTO) 5.71 10^3/uL 1.50-6.[address] [facility] LYMPH # (AUTO) 2.3 k/uL 1.0-5.[address] [facility] MONO # (AUTO) 0.59 k/uL 0.20-1.[address] [facility] EOS # (AUTO) 0.15 10^3/uL 0.00-1.[address] [facility] BASO # (AUTO) 0.02 10^3/uL 0.00-0.[address] [facility] ID Date Data Source [id number] 02/08/2021 06:00:[address] [facility] Name Value Range Interpretation Code Description Data Maryam rce(s) Supporting Document(s) SODIUM 138 MEQ/L 135-[address] [facility] POTASSIUM 3.7 MEQ/L 3.5-5.3 [facility] CHLORIDE 106 MEQ/L 94-110 N [facility] CARBON DIOXIDE 26 MEQ/L 22-33 [facility] ANION GAP 10 5-16 N [facility] BLOOD UREA NITRO 7 MG/DL 7-25 N [facility] CREATININE 0.5 MG/DL 0.6-1.4 L [facility] GFR > 90.0 ML/MIN [facility] Stage G1 - Normal or high kidney functi on The GFR is an estimate of the Glomerular Filtration Rate. It is an aid to assess a patient's renal function. It is not a conclusive diagnosis of kidney disease. GFR normal is >=90 The MDRD GFR calculation is considered valid between the ages of 18 and 75 years only. BUN/CREAT RATIO 14 8-36 [facility] GLUCOSE 77 MG/DL 70-100 [facility] CA 9.6 MG/DL 8.7-10.5 [facility] BILIRUBIN,TOTAL 0.5 MG/DL 0.1-1.3 [facility] AST 20 U/L 5-40 [facility] ALT 16 U/L 5-48 [facility] ALKALINE PHOSPHATASE 79 U/L 40-140 [facility] TOTAL PROTEIN 7.3 G/DL 5.9-8.3 N [facility] ALBUMIN 4.5 G/DL 3.0-5.1 [facility] GLOBULIN 2.8 G/DL 1.5-3.5 [facility] ALB/GLOB RATIO 1.6 G/DL 1.0-3.0 [facility] ID Date Data Source [id number] 02/10/2021 10:53:00 PM EDT [facility] Name Value Range Interpretation Code Description Data Maryam rce(s) Supporting Document(s) RAPID PLASMA REAGIN WITH TITER See Notes [facility] RPR Non Reactive Non Reactive [facility] [address], [address] Dir: Florinda Dhillon MD Test performed by [employer] methodology ID Date Data Source [id number] 02/08/2021 05:55:00 PM EDT [facility] Name Value Range Interpretation Code Description Data Maryam rce(s) Supporting Document(s) RETICULOCYTE % (AUTO) 1.2 % 0.5-2.0 N [facility] RETICULOCYTE HGB 32.6 pg 29-35 N [facility] ABSOLUTE RETICS # 0.0488 10^6/uL [facility] IMMATURE RETIC FRACTION 9.3 % 3.0-15.9 N [facility] ID Date Data Source [id number] 02/08/2021 06:00:00 PM EDT [facility] Name Value Range Interpretation Code Description Data Maryam rce(s) Supporting Document(s) IRON 38 UG/DL 35-150 N [facility] TIBC 313 UG/DL 260-400 N [facility] % IRON SATURATION 12.0 % 20-50 L [facility] ID Date Data Source [id number] 02/10/2021 10:53:00 PM EDT [facility] Name Value Range Interpretation Code Description Data Maryam rce(s) Supporting Document(s) HCV COMMENT See Notes [facility] Hep A Ab, IgM Negative Negative Hep A Ab, Total Negative Negative HBsAg Screen Negative Negative Hep B Core Ab, IgM Negative Negative Hep B Core Ab, Tot Negative Negative Hep B Surface Ab, Qual Non Reactive Non Reactive: Inconsistent with immunity, less than 10 mIU/mL Reactive: Consistent with immunity, greater than 9.9 mIU/mL Verified by repeat analysis HCV Ab <0.1 s/co ratio 0.0-0.9 Comment: Non reactive HCV antibody screen is consistent with no HCV infection,unless recent infection is suspected or other evidence exists to indicate HCV infection. [facility] [address], [address] Dir: Florinda Dhillon MD ID Date Data Source [id number] 02/08/2021 06:00:00 PM EDT [facility] Name Value Range Interpretation Code Description Data Maryam rce(s) Supporting Document(s) FERRITIN 17.6 NG/ML 22-322 L [facility] ID Date Data Source [id number] 02/10/2021 10:53:00 PM EDT [facility] Name Value Range Interpretation Code Description Data Maryam rce(s) Supporting Document(s) HIV SCREEN 4TH GENERATION See Notes [facility] HIV Screen 4th Gen wRfx Non Reactive Non Reactive [facility] [address], [address] Dir: Florinda Dhillon MD ID Date Data Source [id number] 02/08/2021 06:00:[address] [facility] Name Value Range Interpretation Code Description Data Maryam rce(s) Supporting Document(s) VITAMIN B12 495 PG/ML 211-[address] [facility] ID Date Data Source [id number] 02/08/2021 06:00:[address] [facility] Name Value Range Interpretation Code Description Data Maryam rce(s) Supporting Document(s) FOLATE 21.73 NG/ML 3.40-24.[address] [facility] ID Date Data Source [id number] 02/08/2021 06:00:[address] [facility] Name Value Range Interpretation Code Description Data Maryam rce(s) Supporting Document(s) TSH 0.879 uIU/ML 0.470-4.[address] [facility] Patients should not be tested for 74 ho urs post fluorescein dye angiography. A false depression of result may occur. ID Date Data Source [id number] 02/08/2021 06:00:[address] [facility] Name Value Range Interpretation Code Description Data Maryam rce(s) Supporting Document(s) VALPROIC ACID < 3 UG/ML 50-[address] [facility] ID Date Data Source [id number] 02/08/2021 09:42:[address] [facility] Name Value Range Interpretation Code Description Data Maryam rce(s) Supporting Document(s) SAVI BY DNA PROBE NEGATIVE NEGATIVE [facility] GARDNERELLA BY DNA PROBE NEGATIVE NEGATIVE [facility] TRICHOMONAS BY DNA PROBE NEGATIVE NEGATIVE [facility] TESTING PERFORMED BY NUCLEIC ACID HYBRI DIZATION ID Date Data Source [id number] 02/12/2021 12:01:[address] [facility] Name Value Range Interpretation Code Description Data Maryam rce(s) Supporting Document(s) CHLAMYDIA, URINE NEGATIVE NEGATIVE [facility] GC, Urine NEGATIVE NEGATIVE [facility] ID Date Data Source [id number] 02/10/2021 08:57:[address] [facility] Run: 02/10/21 0857 INTERFACED REPORT Name: Dinorah Reyes Age/Sex: 26/ Location: [facility] Acct: [id number] Unit: [id number] Status: REG REF Room/Bed: Re02/08/21 Disch: Ronn Dr: Pauline Guerin NP Specimen #: [id number] Ordered : 02/08/21 Collected : 02/08/21 By: OFFICE Received: 02/08/21 By: DAHLIA Source: URINE CC Specimen Description: Procedure Result - COLONY COUNT Final COLONY COUNT GREATER THAN 100,000 CFU/ML URINE CULTURE Final COLIFORMS MANY Organism 1 ESCHERICHIA COLI 1. ESCHERICHIA COLI GLENIS Int --------- --- AMIKACIN <=16 S AMPICILLIN <=8 S AMPICILLIN/SULBACTAM <=8/4 S AZTREONAM <=4 S CEFAZOLIN <=2 S CEFEPIME <=2 S CEFTAZIDIME <=1 S CEFTRIAXONE <=1 S CIPROFLOXACIN <=1 S GENTAMICIN <=4 S IMIPENEM <=1 S LEVOFLOXACIN <=2 S MEROPENEM <=1 S NITROFURANTOIN <=32 S TETRACYCLINE <=4 S TOBRAMYCIN <=4 S TRIMETHOPRIM/SULFAMETHOXAZOLE <=2/38 S PIPERACILLIN/TAZOBACTAM <=16 S S = Susceptible MS = Moderately Susceptible I = Intermediate R = Resistant MARCELLA = Beta Lactamase Positive GLENIS = MCG/mL BLANK = Not Tested or Advisable URINE CULTURE Preliminary (Corrected) COLIFORMS MANY END OF REPORT Name Value Range Interpretation Code Description Data Maryam rce(s) Supporting Document(s) ID Date Data Source [id number] 02/08/2021 07:35:[address] [facility] [facility] Name Value Range Interpretation Code Description Data [facility] Supporting Document(s) COLOR,UR YELLOW YELLOW [facility] APPEARANCE,UR CLOUDY CLEAR A [facility] PH,UR 6.0 5.0-8.0 [facility] SPECIFIC GRAVITY,UR 1.012 1.002-1.[address] [facility] PROTEIN,UR NEGATIVE MG/DL NEGATIVE [facility] GLUCOSE, UR NEGATIVE MG/DL NEGATIVE [facility] KETONES,UR 20 MG/DL NEGATIVE A [facility] OCCULT BLOOD,UR NEGATIVE NEGATIVE [facility] NITRATE,UR POSITIVE NEGATIVE A [facility] LEUKOCYTE ESTERASE ,UR MODERATE NEGATIVE A [facility] BILIRUBIN,UR NEGATIVE NEGATIVE [facility] UROBILINOGEN,UR 0.2-1.0 EU MG/DL NEG-0-1.0 [facility] RBC,UR 3-9 PER HPF 0-[address] [facility] WBC,UR 50-100 PER HPF <[address] [facility] URINE EPITH MANY PER/LPF FEW-MOD [facility] BACTERIA,UR FEW PER HPF NONE [facility] MUCUS,UR MANY PER HPF NONE SEEN [facility] ID Date Data Source [id number] 01/31/2021 01:09:17 PM EDT [facility] Name Value Range Interpretation Code Description Data Maryam rce(s) Supporting Document(s) Progress Note [facility] MMNBUf4eEdOEHcPx02/DUUwkEQNom3PnMHqdDCm2FYmgVQPiU4ElUXA7qP3wKAO5KYzCOtBjSpCbNlIf lbm [file] X9YzDtDEsvFrL7R7M+QZ4eFEt+Zj4Dl9ArodP6fqYfAUxcWOG3ON4XMCLDF4KGDb== ID Date Data Source [id number] 01/31/2021 01:09:12 PM EDT [facility] Name Value Range Interpretation Code Description Data Maryam rce(s) Supporting Document(s) Progress Note [facility] LRTQBa4eWtBLNeNb98/UETjgDTWbk8HjFYhqUCj2CMqqVJWzZ2UjOHZ3uP9oAGG8TBsCHdEkUtRzNuAr lbm [file] [id number]SKI6AZJp== ID Date Data Source [id number] 01/30/2021 06:58:11 AM EDT [facility] Name Value Range Interpretation Code Description Data Maryam rce(s) Supporting Document(s) ED Provider Note [facility] ECNDSq6dJsGWTeTe31/RVPdsOLDxi7ElIMfiXSi6ZMxvFEMzT2YyDBG6iQ8xOTN1OJrKLvGhDbJvVfN1 lbm [file] 0KICA+Sergo+Xn6RUHUaECNuIKHeAqZjGIEHAwXpW8Ia Q6GDa5ZxD3XcOX67xEeuiqSoIFouEW9EPF5pGQDtALWCVZ7IgLHktA4hgfN7MdFcSEOZMkMbX91ctPNj IRVaFKD6KJRkNd5TIMSvU0KksrBozQmeokLlRAShUWCOOE7AUFwxwvHdiWXrkXvjVP38nTrqWF1RFp8U JgPhPR5otk3YdWEaIh5LRWU4ZI0FFDUgNLQnAUErWM J8LXGsHgFjVFhiJWYiLTYzZXR5XDDvYBKePT2UJkPgQKTtQNCuOFaoTQMsRGQqeo5TUFAxZJQ5TAa4LW ZbNUPgTIRnNWswKHWgOPDbWSO7ERYxZSApFQ7TUrApZIOsMDNhFWSzOLWjIREtzr8XJFHmHEGsSlHvIj ErACSoXTCnFYncRXWtHZR5YeEaDKAxAHFbUN8YWoJr DUIfZUD2TEAmCPRsLEKawh1FDUViAOXxWWM2SXDqVGYwCNPpFNkdDBFoYLH0MeH6XYEvJVNpXY8TYcNx ZZCrJOK3BJXwTPWcLKKqou4ZRLMuZRLoMgKjPJOlIJIbIIIePDkdPGAnVLZ5RZN7RNMcTGZiIY2RXnPr ICLiYWTpMfQrKLOqAKVgdm3RCGUuWSAvDbU8ECNbJD SwBYTmVIjgMLZwQYJ3SsaoVGKcVFEvGM1SLtRdYBZdNsY4IRysAXYpHXDimb5NDMFjMAKkIBH7JSBaFI ZlCHNgSQmsHUUgTRJpHfveZATcVVGzAC7OYkPyHDCkRaP3HDkfKBErGWDgoe2XESAuVMElYyE4DuRpQO TeQQVdYLeqYNZaILE1NlokRKBqYYVrUB0GUcEeELIx BdmoJuHhBEFjDLRwma6CMKLeVSJhBOZaVgKdEIHzZTUlWUbaNMXqTYZcDVP9HBVnPMNcZX6EWoHxJGQd EcRkCPIiGTOoYAVbbv6YIZHvKCHjFNE6EQAyRMBhPQYgNXorYDFoKVH2SyV0FOAlMMUbEH6XAlIoSSTn PwK8NcHzVJPeFVWntm9RMAYhVTNvQao8ZgLtCTPzKY WuVBvaXTIfELP2SDN3MAJkAUInTM5HBxCsEMSkAzt8YFZaPGDfFOEqxf2WXFDdHAClEGOeVzJwPUChYK SvVEhrYQFsBNP6Nzw3DCJlVJTpHQ8HBhXoXRSoNHs3HjolKIQyVGWcgk7AIGQnKPJ2ITx6LzIoINUzNQ HaXJuySBAzVRFmGxZ1SXHxMOKxUY1EZdXxFMDrHNN1 SRQlHOBxHOYizc6ZARDbIAK2DWD8RUJsWJZzRRLoFJbgNUBgMOFfRLM3UFEsWRDlBO9OXxYpUKYyKSF1 WnAzBVRmCLNmsd2LZRWbXMP8XGslGOTsQUInCCKbOMzzYTUgCSIjDGN9IVNeXSXsIM0PSqJzRCYiUTYs VlMmRHEzPCHfls1ZZBGvXTW1PdJ0ZxDrWKOdYWExQK rdDIIcSXRiAdElVGPwVFWqGN7UJqUuIAAoBKSxULAgQWYnEFNzlk5OEVFcLUK7YBBvSHFaLUKoBXUfIS wcZTPwLGD7NRTqWGQgUQXoOD2FFmBvZXVpXVZ1KbHvXSKnORAljc5AEGTeACN8PQxaLRGhJAFjROItAO gzPUMqYXU4MSd2QMZeDANwAN2QDwIoZQMsUIBdXeVa RPYoYQBjyg1YPVFpIYJ1RlD5KxWlHBKvBJHhSEo1rfPjhDHpNQs3AA6DN4YxteKeSXFZOk8Ja390VOE1 GPXzFs5JW9iuMe1oKMQtSGIQXw1YGRe8SFT4JXD8ZuThDKruGwW4FYQuXxS0XiNiPzt6MnH9Bev+IDxk UWO3LiuoDIJ0MFLqITO9SMCoOWj9OfTbAef7THvvHh 7jVDKUTi6+HMemrXWnqWyhQHNFEsN3NAc2MXbaMCVZHm6H ID Date Data Source [id number] 01/29/2021 10:56:54 AM EDT [facility] Name Value Range Interpretation Code Description Data Maryam rce(s) Supporting Document(s) Consultation [facility] XLLIPo8kZwSWZbVu42/AHPmbGQXio0XfRJetGQy2WBwdABQnF5VbYNY0xI1tIZT4JRfVKcSuSbLiCwG2 lbm [file] CMT0Z6LqPKQ+SZ9rNIm+Ve3Sc8OngdM0bwXuKOdlCmO7Oq1ISGDJS9POIv== ID Date Data Source [id number] 01/25/2021 10:54:32 PM EDT [facility] Name Value Range Interpretation Code Description Data Maryam rce(s) Supporting Document(s) Glucose [Mass/volume] in Capillary blood by Glucometer 82 mg/dL 70- 140 [facility] ID Date Data Source [id number] 10/29/2020 12:50:00 PM EST [facility] ([facility] ) Name Value Range Interpretation Code Description Data Maryam rce(s) Supporting Document(s) Valproate [Mass/volume] in Serum or Plasma 139.7 UG/ML 50.0-100.0 [facility] ([facility] Lacosamide [Mass/volume] in Serum or Plasma 5.0 ug/mL 5.0-10.0 [facility] ([facility] ) This test was developed and its performa nce characteristics determined by [employer]. It has not been cleared or approved by the Food and Drug Administration. Limit of Detection 0.5 . Mean plasma concentrations following maintenance dose 200 mg/day 4.99 +/- 2.51 ug/mL 400 mg/day 9.35 +/- 4.22 ug/mL 600 mg/day 12.46 +/- 5.60 ug/mL Performed at: [address] [id number] [employer] Control Planner: Gagandeep Delgado MD, Phone: [phone] ID Date Data Source [id number] 10/29/2020 12:50:00 PM EST [facility] ([facility]) Name Value Range Interpretation Code Description Data Maryam rce(s) Supporting Document(s) Glucose, Fasting 84 mg/dL 70-100 [facility] ([facility], ) Blood Urea Nitrogen 13 mg/dL 7-18 [facility] ([facility]) Glomerular Filtration Rate Laboratory test result [facility] ([facility]) <content>Units are mL/min/1.73 m2</content>
<content></content>
<content>Chronic Kidney Disease Staging per NKF:</content>
<content></content>
<content>Stage I & II GFR >=60 Normal to Mildly Decreased</content>
<content>Stage III GFR 30- 59 Moderately Decreased</content>
<content>Stage IV GFR 15-29 Severely Decreased</content>
<content>Stage V GFR <15 Very Little GFR Left</content>
<content>ESRD GFR <15 on [employer]</content>
<content></content> Creatinine For GFR 0.61 mg/dL 0.55-1.30 [facility] ([facility]) Potassium Serum 4.8 meq/L 3.5-5.1 [facility] ([facility]) Sodium Level 140 meq/L 136-145 [facility] ([facility]) Carbon Dioxide Level 30 meq/L 21-32 [facility] ([facility]) Chloride Level 108 meq/L 98-107 [facility] ([facility]) Calcium Level 9.1 mg/dL 8.5-10.1 [facility] ([facility]) Anion Gap 2 meq/L 8-16 [facility] ([facility]) Ast/Sgot 10 U/L 7-37 [facility] ([facility]) Alt/SGPT 15 U/L 12-78 [facility] ([facility]) Alkaline Phosphatase 72 U/L 45-117 [facility] ([facility]) Total Protein 7.2 GM/DL 6.4-8.2 [facility] ([facility]) Bilirubin,Total 0.3 mg/dL 0.2-1.0 [facility] ([facility]) Albumin/Globulin Ratio 0.9 1.2-2.2 [facility] ([facility]) Albumin 3.5 GM/DL 3.2-5.2 [facility] ([facility]) ID Date Data Source [id number] 10/29/2020 12:50:00 PM EST [facility] ([facility]) Name Value Range Interpretation Code Description Data Maryam rce(s) Supporting Document(s) White Blood Count 6.1 10 4.0-10.0 [facility] ([facility]) Hemoglobin 12.0 g/dL 12.0-15.5 [facility] ([facility]) Red Blood Count 4.43 10 4.00-5.40 [facility] ([facility]) Mean Corpuscular Hemoglobin 27.1 pg 27.0-33.0 [facility] ([facility]) Hematocrit 39.4 % 36.0-47.0 [facility] ([facility]) Mean Corpuscular Volume 88.9 fl 80.0-96.0 M [facility] ([facility]) Mean Corpuscular HGB Conc 30.5 g/dL 32.0-36.5 [facility] ([facility]) Platelet Count, Automated 229 10 150-450 [facility] ([facility]) Red Cell Distribution Width 14.6 % 11.5-14.5 [facility] ([facility]) Orange % 9.7 % 2.0-8.0 [facility] Lymph % 42.4 % 24.0-44.0 [facility] Neutrophils % 45.7 % 36.0-66.0 [facility] ([facility]) Eos % 1.8 % 0.0-3.0 [facility] Baso % 0.2 % 0.0-1.0 [facility] ([facility]) Nucleated Red Blood Cell % 0.0 % 0-0 [facility] Immature Granulocyte % 0.2 % 0-3.0 [facility] ([facility]) Neutrophils # 2.8 10 1.5-8.5 [facility] ([facility]) Lymph # 2.6 10 1.5-5.0 [facility] ([facility]) Orange # 0.6 10 0.0-0.8 [facility] ([facility]) Baso # 0.0 10 0.0-0.2 [facility] ([facility] ) Eos # 0.1 10 0.0-0.5 [facility] ([facility] ) Procedure Social History Code Duration Value Status Description Data Source(s ) Smoking 06/07/2021 12:00:00 AM EDT Never smoked tobacco (findi ng) completed Never smoked tobacco (finding) [facility] ([facility]) Alcohol intake 04/09/2021 12:00:00 AM EDT Current non-d gabino of alcohol (finding) completed Current non-drinker of alcohol (finding) [facility] Tobacco use and exposure 04/09/2021 12:00:00 AM EDT Never used co mpleted Never used [facility] Smoking 04/09/2021 12:00:00 AM EDT Never smoker completed Never s [facility] Alcohol intake 03/25/2021 12:00:00 AM EDT Current non-d gabino of alcohol (finding) completed Current non-drinker of alcohol (finding) [facility] Alcohol intake 02/27/2021 12:00:00 AM EDT Current non-d gabino of alcohol (finding) completed Current non-drinker of alcohol (finding) [facility] Alcohol intake 02/13/2021 12:00:00 AM EDT Current non-d gabino of alcohol (finding) completed Current non-drinker of alcohol (finding) [facility] Assertion 02/08/2021 12:00:00 AM EDT Finding relat ing to drug misuse behavior (finding) completed Finding relating to drug misuse behavior (finding) [facility] ([facility]) Assertion 02/08/2021 12:00:00 AM EDT Current drinker of al cohol (finding) completed Current drinker of alcohol (finding) [facility] ([facility]) Assertion 02/08/2021 12:00:00 AM EDT Finding relat ing to drug misuse behavior (finding) completed Finding relating to drug misuse behavior (finding) [facility] ([facility]) Assertion 02/08/2021 12:00:00 AM EDT Current drinker of al cohol (finding) completed Current drinker of alcohol (finding) [facility] ([facility]) Alcohol intake 01/31/2021 12:00:00 AM EDT Current non-d gabino of alcohol (finding) completed Current non-drinker of alcohol (finding) [facility] Alcohol intake 01/25/2021 12:00:00 AM EDT Current non-d gabino of alcohol (finding) completed Current non-drinker of alcohol (finding) [facility] Vital Signs ID Date Data Source [id number] Name Value Range Interpretation Code Description Data Source(s) Systolic blood pressure 110 mm[Hg] 110 mm[Hg] G [facility] ([facility]) Diastolic blood pressure 84 mm[Hg] 84 mm[Hg] [facility] ([facility]) Heart rate 101 /min 101 /min [facility] ([facility]) Heart rate rhythm 1 1 [facility] ([facility]) Respiratory rate 18 /min 18 /min [facility] ([facility]) Body temperature 97 [degF] 97 [degF] [facility] ([facility]) Body weight 113 [lb_av] 113 [lb_av] [facility] ([facility]) PhenX - pain, abdominal - type and intensity protocol 7 7 [facility] ([facility]) Oxygen saturation in Arterial blood by Pulse oximetry 97 % 97 % [facility] ([facility]) Inhaled oxygen flow rate 0 L/min 0 L/min [facility] ([facility]) Inhaled oxygen concentration 21 % 21 % [facility] ([facility]) Systolic blood pressure 118 mm[Hg] 118 mm[Hg] [facility] ([facility]) Diastolic blood pressure 66 mm[Hg] 66 mm[Hg] [facility] ([facility]) Heart rate 83 /min 83 /min [facility] ([facility]) Respiratory rate 17 /min 17 /min [facility] ([facility]) Body temperature 98.1 [degF] 98.1 [degF] [facility] ([facility]) Body height 66.5 [in_i] 66.5 [in_i] [facility] Body weight 114 [lb_av] 114 [lb_av] [facility] Body mass index (BMI) [Ratio] 18.1 kg/m2 18.1 k g/m2 [facility] ([facility]) Body surface area Derived from formula 1.58 m2 1.58 m2 [facility] ([facility]) PhenX - pain, abdominal - type and intensity protocol 0 0 [facility] ([facility]) Oxygen saturation in Arterial blood by Pulse oximetry 97 % 97 % [facility] ([facility]) Inhaled oxygen flow rate 0 L/min 0 L/min [facility] ([facility]) Inhaled oxygen concentration 21 % 21 % [facility] ([facility]) ID Date Data Source [id number] 2021 01:57:00 PM EDT [facility] Name Value Range Interpretation Code Description Data Source(s) WEIGHT RECORDED 118 lb 118 lb [facility] Body height Measured [address] [facility] Patient Treatment Plan of Care Planned Activity Planned Date Details Description Data Source (s) NITROFURANTOIN, MACROCRYSTALS 25 MG / Ni trofurantoin, Monohydrate 75 MG Oral Capsule [Macrobid] 02/12/2021 12:00:00 [facility] Ethinyl Estradiol 0.03 MG / Levonorgestrel 0.15 MG Ora l Tablet 02/11/2021 12:00:00 AM T [facility] Ethinyl Estradiol 0.03 MG / Levonorgestrel 0.15 MG Ora l Tablet 02/08/2021 12:00:00 AM EDT [facility] ([facility]) [place] (28) 50-30/75-40/ 125-30 MCG Oral Tablet 09/20/2019 12:00:0 0 AM EST [facility] ([facility])
[2021-06-12] MEDS ORDERED: ACETAMINOPHEN TAB 650MG DOSE (2X325MG) PO ONE (22:15)
[2021-06-12] MEDS ORDERED: IBUPROFEN 600MG TAB PO ONE (22:15)
[2021-06-12] MEDS ORDERED: AUGMENTIN 875 MG TAB PO ONE (22:15)
[2021-06-12] MEDS ORDERED: IBUP-1022 PO (22:23)
[2021-06-12] MEDS ORDERED: AUGM875T28 PO (22:23)
[2021-06-12 22:27] VITALS: BP 126/82
--- OUTSIDE RECORDS SUMMARY | 2021-06-12 22:52 | CCD ---
Author Author [facility] Organization [facility] Address Unknown Phone Unavailable Care Team Providers Care Cuff Maker Name Role Phone Farhana JAUREGUI Unavailable Unavailable Wheatland, Pauline 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 Unavailable Unavailable Truong, Pauline 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 Unavailable Unavailable Wheatland, Pauline 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 Unavailable Unavailable [place]land, Pauline 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 Unavailable Unavailable [place]land, Pauline 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 Unavailable Unavailable [place], Pauline 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 Unavailable Unavailable [place], Pauline 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 Unavailable Unavailable Truong, Pauline 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 Unavailable Unavailable Truong, Pauline 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 Unavailable Unavailable [place], Pauline 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 Unavailable Unavailable Truong, Pauline 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 Unavailable Unavailable Truong, Pauline 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 Unavailable Unavailable Truong, Pauline 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 Unavailable Unavailable Enedina Villegas MD Unavailable Unavailable [...] Unavailable Unavailable Enedina Villegas MD Unavailable Unavailable Nasri, Enedina MD Unavailable Unavailable NasEnedina proctor MD Unavailable Unavailable NasEnedina proctor MD Unavailable Unavailable NasEnedina proctor MD Unavailable Unavailable Ali, Cassi PANDYA Unavailable [...] Ali, Cassi MD Unavailable Unavailable Ali, Cassi PANDYA Unavailable Unavailable Ali, Cassi PANDYA Unavailable Unavailable Ali, Cassi MD Unavailable Unavailable Ali, Cassi Unavailable Unavailable Confucianist, Jeana Unavailable Unavailable INGRIS, M MELIA Unavailable Unavailable Tabitha, Talat Unavailable Unavailable Tabitha, Talat Unavailable Unavailable IDANIA SHEN MD Unavailable Unavailable [...] Unavailable Unavailable KHAIRALLAH, RAMZI MD Unavailable Unavailable KHAIRALLGHAZALA, RAMDIDIER MD Unavailable Unavailable KHAIRALLAH, RAMZI MD Unavailable Unavailable Carguello, J Geraldo DO [...] Unavailable Carguello, J Geraldo DO Unavailable Unavailable Farhana JAUREGUI Unavailable Unavailable ALEXIA [...] is protected by Article 27-F of the [facility] Public Health law. If you continue you may have access to information: Regarding HIV / AIDS; Provided by facilities licensed or operated by the [facility] Office of Mental Health; or Provided by the [facility] Office for People With Developmental Disabilities. If such information is present, then the following [facility] mandated warning applies: This information has been [...] law may result in a fine or mcc sentence or both. A general authorization for the release of medical or other information is NOT sufficient authorization for further disc losure. 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 Descr iption Data Source(s) packet given Pt Bill of Rights, Priv Prac, Ad Dir completed packet given Pt Bill of Rights, Priv Prac, Ad Dir [facility] ([facility]) Note: Pt declined AD packet Family History Family Member Name Family Member Gender Family Member Status Date o f Status Description Data Source(s) Unknown Female Problem (finding) 11/12/2016 12:00:00 AM EDT [facility] ([facility]) Encounters Encounter Providers Location Date Indications Data Source(s ) Outpatient Attender: CHEPE Butlerender: CHEPE JAUREGUI 07/10/2021 12:00:00 AM [facility] Unknown<td ID="encounterTypeDescriptionI D0">Acute</td><td>Enedina Villegas MD</td><td></td><td>06/12/2021</td><td>4:02PM</td><td>11:59PM</td><td></td> Attender: Enedina Villegas MD 06/12/2021 04:02:00 PM EDT - 06/12/2021 11:59:00 PM EDT [facility] ([facility]) Outpatient Attender: Geraldo Barclay DO 06/12/2021 02:35:00 PM EDT N63.12 Unspecified lump in the right breast, upper [facility] N63.12 Unspecified lump in the right chetan ast, upper Outpatient<td ID="encounterTypeDescripti onID0">Acute L3</td><td>Enedina Villegas MD</td><td>[facility]</td><td>06/07/2021</td><td>10:04AM</td><td>10:47AM</td><td><content ID="encounterDiagnosisID0-0">Breast Lump Or Mass</content></td> Attender: Enedina Villegas MD [facility] 06/07/2021 10:04:00 AM EDT - 06/07/2021 10:47:05 AM EDT Breast Lump Or Mass [place] ([facility]) Breast Lump Or Mass Outpatient Attender: CHEPE King: CHEPE JAUREGUI 05/10/2021 12:00:00 AM EDT [facility] Outpatient Attender: Cassi Soto MD Main office - [place] 04/19/2021 08:45:00 AM EDT [facility]) Outpatient Attender: MELIA AMADO [address] [place] [address] 021 12:00:00 AM EDT - 04/09/2021 11:32:05 AM EDT [facility] Outpatient Attender: CHEPE King: CHEPE JAUREGUI [address] [place] [address] 03/25/2021 12:00:00 AM EDT - 03/25/2021 10:44:[address] [facility] Outpatient Attender: CHEPE King: CHEPE JAUREGUI [address] [place] [address] 02/27/2021 12:00:00 AM EDT - 02/27/2021 04:45:[address] [facility] Outpatient Attender: Talat Lu 02/14/2021 12:00:00 AM [facility] Outpatient Attender: Jeana Greene [facility] 02/14/20 12:00:00 AM EDT - 02/13/2021 01:34:42 PM [facility] Outpatient Attender: Geraldo Barclay DO 02/11/2021 11:35 :00 AM EDT [facility] Outpatient Attender: Pauline Guerin NP 02/08/2021 03:52:0 0 PM EDT [facility] <td ID="encounterTypeDescriptionID0">[facility]</td><td>Pauline Guerin NP</td><td>[facility]</td><td>02/08/2021</td><td>1:52PM</td><td>3:35PM</td><td><content ID="encounterDiagnosisID0-0">Contraceptive Surveillance</content>, <content ID="encounterDiagnosisID0-1">Epilepsy Generalized</content>, <content ID="encounterDiagnosisID0-2">Anemia</content></td>Unknown Attender: Pauline Guerin [facility] 02/08/2021 01:52:00 PM EDT - 02/08/2021 03:35:17 PM EDT AnemiaAnemiaContraceptive SurveillanceCo ntraceptive SurveillanceEpilepsy GeneralizedEpilepsy Generalized [facility] ([facility]) Anemia Anemia Contraceptive Surveillance Contraceptive Surveillance Epilepsy Generalized Epilepsy Generalized Outpatient Attender: Talat Lu 07A-[facility] 021 12:00:00 AM EDT - 01/31/2021 09:36:40 AM EDT [facility] Emergency Attender: MERY HALE . 07A-ADULTERM 11/2020 12:00:00 AM EDT - 01/26/2021 03:54:00 AM EDT Dislocation of tooth, initial encounter [facility] Dislocation of tooth, initial encounter Patient discharged. Outpatient Attender: Cassi Soto MD Main office - [place] 10/31/2020 11:00:00 AM EST [facility] ([facility]) Attender: IDANIA SHEN MD [facility] 09/04/2020 07:09:00 PM EST - 09/04/2020 07:09:00 PM EST [facility] ( [facility]) Outpatient Attender: Cassi Soto MD Main office - [place] 04/18/2020 11:15:00 AM EDT [facility] ([facility]) Immunizations Vaccine Date Status Description Data Source(s) COVID-19 VACCINE Moderna 01/04/2021 12:00:00 AM EDT completed [facility] Vaccine Series Complete: YESThis Data wa s Submitted to [facility]. COVID-19 VACCINE Moderna 12/07/2020 12:00:00 AM EDT completed [facility] Vaccine Series Complete: NOThis Data was Submitted to [facility]. Medications Medication Brand Name Start Date Product Form Dose Route Admi nistrative Instructions Pharmacy Instructions Status Indications Reaction Description Data Source(s) topiramate 50 MG Oral Tablet Topiramate 04/19/2021 12:00:00 AM EDT active [facility] ([facility] ) NITROFURANTOIN, MACROCRYSTALS 25 MG [...] Oral Tablet 02/11/2021 12:00:00 AM EDT active [facility] Ethinyl Estradiol 0.03 MG / Levonorgestr [...] mg from all sources in 24 hours.
[facility] Medication administered onsite 24 HR Divalproex Sodium 500 MG Extended Release Oral Tablet divalproex (DEPAKOTE) 24 hr tablet 500 mg divalproex (DEPAKOTE) 24 hr tablet 500 mg 01/26/2021 12:00:00 AM EDT 500 mg Oral completed 500 mg, Oral, Once, On 01/26/21 at 0000, For 1 dose
Do not crush or chew
[facility] Medication administered onsite Lacosamide (VIMPAT) tablet 200 mg 01/26/2021 12:00:00 AM EDT 200 mg Oral completed 200 mg, Oral, Once, On Sat at 0000, For 1 dose [facility] Medication administered onsite clobazam 10 MG Oral Tablet cloBAZam (ONFI) tablet 5 mg cloBAZam (ONFI) tablet 5 mg 01/26/2021 12:00:00 AM EDT 5 mg Oral completed 5 mg, Oral, Once, On 01/26/21 at 0000, For 1 dose [facility] Medication administered onsite cloBAZam 5 MG Oral Film cloBAZam 5 MG Oral Film 11/06/2020 12:00:00 A M EDT 1 aborted clobazam 5 MG Oral F ilm [facility] clobazam 10 MG Oral Tablet Clobazam 10/31/2020 12:00:00 AM EST completed [facility] ([facility] ) lacosamide 150 MG Oral Tablet [Vimpat] Vimpat 150 MG O ral Tablet Vimpat 150 MG Oral Tablet 04/18/2020 12:00:00 AM EDT 1 active lacosamide 150 MG Oral Tablet [Vimpat] [facility] ([facility]) Trivora (28) 50-30/75-40/ 125-30 MCG Oral Tablet [...] Oral Tablet) } Pack [Trivora 28 Day] [facility] ([facility]) Insurance Providers Payer name Policy type / Coverage type Policy ID Covered republican ID Covered republican's relationship to gann Policy Gann Plan Information EXCELLUS I [id number] Self [id number] MARYBETH MEDICAID [id number] Aisha 7 [id number] MEDICAID M [id number] Self [id number] [facility] [id number] SP [id number] EXCELLUS C [id number] Child [id number] BLUE CROSS [id number] BCBS of [facility] Other 302/802 [id number] Family Dependent Nick Muse 302/802 BCBS of [facility] Other 302/802 [id number] Family Dependent Nick Muse 302/802 BCBS of [facility] Other 302/802 [id number] Family Dependent Nick Muse 302/802 BCBS of [facility] Other 302/802 [id number] Family Dependent Nick Muse 302/802 BCBS of [facility] Other 302/802 [id number] Family Dependent Nick Muse 302/802 BCBS of [facility] Other 302/802 [id number] Family Dependent Nick Muse 302/802 BCBS of [facility] Other 302/802 [id number] Family Dependent Nick Muse 302/802 BCBS of [facility] Other 302/802 [id number] Family Dependent Nick Muse 302/802 BCBS of [facility] Other 302/802 [id number] Family Dependent Nick Muse 302/802 BLUE CROSS [id number] SELF PAY BCBS of [facility] Other 302/802 [id number] Family Dependent Nick Muse 302/802 BCBS of [facility] Other 302/802 [id number] Family Dependent Nick Muse 302/802 DENTAL U [id number] Child [id number] SELF PAY BLUE CROSS [id number] SELF PAY BLUE [place]OSS [id number] BLUE CROSS [id number] SELF PAY Medicaid of [place] Other 0 [id number] Self 0 [place] 306/806 [id number] FA2 [id number] [place] 306/806 [id number] FA2 [id number] Medicaid [facility] Other 0 [id number] Self 0 BLUE CROSS [id number] MARYBETH [id number] SP [id number] 200 MARYBETH I [id number] Self [id number] BS Of [place] Commercial [id number] Family Dependent BCBS OF [place] 306/806 [id number] FA2 [id number] Problems, Conditions, and Diagnoses Code Display Name Description Problem Type Effective Dates Data Source(s) N39.0 Urinary tract infection, site not specif ied N39.0 - Urinary tract infection, site not specified Diagnosis 02/11/2021 11:35:00 AM EDT [facility] [employer] Z30.40 Encounter for surveillance of contracept gavino, unspecified Z30.40 - Encounter for surveillance of contraceptives, unspecified Diagnosis 02/08/2021 03:52:00 PM T [facility] 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 9 - Iron deficiency anemia, unspecified Diagnosis 02/08/2021 03:52:00 PM T [facility] W23.1XXA Caught, crushed, jammed, or pinched between stationary objects, initial encounter Caught, crushed, jammed, or pinched betw een stationary objects, initial encounter Diagnosis 01/25/2021 11:27:00 PM EDT [facility] G40.919 Epilepsy, unspecified, intractable, with out status epilepticus Epilepsy, unspecified, intractable, without status epilepticus Diagnosis 0 01/25/2021 11:27:00 PM T [facility] R56.9 Unspecified convulsions Unspecified convulsions Diagno sis 01/25/2021 11:27:00 PM T [facility] S03.2XXA Dislocation of tooth, initial encounter Dislocation of tooth, initial encounter Diagnosis 01/25/2021 11:27:00 PM EDT [facility] seizure seizure Diagnosis 01/25/2021 11:27:00 PM ED T [facility] Surgeries/Procedures Procedure Description Date Indications Data Source(s) Surgical / procedural history vagal nerve stimulator in 2017 Surgical / procedural history vagal nerve stimulator in 2017 [id number] 06/07/2021 12:00:00 AM EDT [facility] ([facility]) History [...] 40 MINUTES 04/19/2021 12:00:00 AM EDT [facility] ([facility]) 27 [place] INTRAORAL PERIAPICAL FIRST F <td>27 [place] INTRAORAL PERIAPICAL FIRST F</td><td>Routine</td><td>04/09/2021 9:30 AM EDT</td><td> Encounter for dental examination</td><td></td> 04/09/2021 09:30:00 AM EDT Encounter for dental examination [facility] Encounter for dental examination CA RE-EVAL,EST PT,PROBLEM FOCUS <td>CA RE-EVAL,EST PT, PROBLEM FOCUS</td><td>Routine</td><td>04/09/2021 9:30 AM EDT</td><td> Encounter for dental examination</td><td></td> 04/09/2021 09:30:00 AM EDT Encounter for dental examination [facility] Encounter for dental examination CA LIMIT ORAL EVAL PROBLM FOCUS <td>CA LIMIT ORAL EVAL PROBLM FOCUS</td><td>Routine</td><td>03/25/2021 10:00 AM EDT</td><td> Encounter for dental examination</td><td></td> 03/25/2021 10:00:00 AM EDT Encounter for dental examination [facility] Encounter for dental examination Noel CA LIMIT ORAL EVAL PROBLM FOCUS <td>Noel CA LIMIT ORAL EVAL PROBLM FOCUS</td><td>Routine</td><td>02/27/2021 3:00 PM EDT</td><td> Dental trauma, subsequent encounter</td><td></td> 02/27/2021 03:00:00 PM EDT Dental trauma, subsequent encounter [facility] Dental trauma, subsequent encounter 23 CA INTRAORAL PERIAPICAL EA ADD <td>23 CA INTRAORAL PERIAPICAL EA ADD</td><td>Routine</td><td>02/13/2021 12:45 PM EDT</td><td> Encounter for dental examination Dental trauma, subsequent encounter</td><td></td> 02/13/2021 12:45:00 PM EDT Dental trauma, subsequent encounterEncounter for dental examination [facility] Dental trauma, subsequent encounter Encounter for dental examination 26 CA INTRAORAL PERIAPICAL FIRST F <td>26 CA INTRAORAL PERIAPICAL FIRST F</td><td>Routine</td><td>02/13/2021 12:45 PM EDT</td><td> Encounter for dental examination Dental trauma, subsequent encounter</td><td></td> 02/13/2021 12:45:00 PM EDT Dental trauma, subsequent encounterEncounter for dental examination [facility] Dental trauma, subsequent encounter Encounter for dental examination Noel CA LIMIT ORAL EVAL PROBLM FOCUS <td>Noel CA LIMIT ORAL EVAL PROBLM FOCUS</td><td>Routine</td><td>02/13/2021 12:45 PM EDT</td><td> Encounter for dental examination Dental trauma, subsequent encounter</td><td></td> 02/13/2021 12:45:00 PM EDT Dental trauma, subsequent encounterEncounter for dental examination [facility] Dental trauma, subsequent encounter Encounter for [...] 12:00:00 AM EDT [facility] ([facility] ) 24 CA INTRAORAL PERIAPICAL FIRST F <td>24 [place] INTRAORAL PERIAPICAL FIRST F</td><td>Routine</td><td>01/31/2021 8:30 AM EDT</td><td> Dental trauma, subsequent encounter</td><td></td> 01/31/2021 08:30:00 AM EDT Dental trauma, subsequent encounter [facility] Dental trauma, subsequent encounter Noel CA LIMIT ORAL EVAL PROBLM FOCUS <td>Noel CA LIMIT ORAL EVAL PROBLM FOCUS</td><td>Routine</td><td>01/31/2021 8:30 AM EDT</td><td> Dental trauma, subsequent encounter</td><td></td> 01/31/2021 08:30:00 AM EDT Dental trauma, subsequent encounter [facility] Dental trauma, subsequent encounter GLUCOSE QUANTITATIVE BLOOD XCPT REAGENT STRIP <td>POCT GLUCOSE, DOCKED</td><td>Routine</td><td>01/25/2021 10:53 PM EDT</td><td></td><td> </td> 01/25/2021 10:53:00 PM EDT [facility] OFFICE OUTPATIENT VISIT 25 MINUTES 10/31/2020 12:00:00 AM RITIKA MCKINNEY ([facility]) Results ID Date Data Source [id number] 06/12/2021 03:21:00 [place] [address] Patient Name: Dinorah Reyes Exam Date: 06/12/21 [...] interpretation performed at Dr. Oswald Block Breast [facility] . End of diagnostic report: [id number] Signed: Miranda Sparks MD 06/12/21 1556 Interpreted by: Miranda SparksTranscribed by: Miranda Sparks Name Value Range Interpretation Code Description Data Maryam rce(s) Supporting Document(s) ID Date Data Source [id number] 04/24/2021 10:33:29 AM EDT [facility] Name Value Range Interpretation Code Description Data Maryam rce(s) Supporting Document(s) Progress Note [facility] DJRFCc7kSkPOGbRf71/GSOmwGNJju8CmOHupKBr5NXpfARAnX0NjEWV2jA3sBLY0IPfLSiLuRsRhBXBn [facility] [file] HhV3ONX5mPCzKt8DMNggXcYJUjFjYO5VVYf= ID Date Data Source [id number] 04/24/2021 10:33:24 AM EDT [facility] Name Value Range Interpretation Code Description Data Maryam rce(s) Supporting Document(s) Progress Note [facility] LGHJHv1mAuNFYqQe84/FONhwOGGjo8EmKDegVAk6HBfkSKAdA6TdUTZ0qU1hWPN2ZQrPOqEtWnNeXCXy lbm [file] +5Bwq9+t5EymQU7Y/Tj+uwhn3umBYKlrdw9myNHPiTZ2uc+5+uPu2iHKTagypW8s4rp0TYLXi7D/pharmaceutical botanist [file] ICAgICAgICAgICAgICAgICAgICAgICAgICAgICAgICAgICAgICAgICAgICAgICAgICAgICAgICAgICAg ICAgICAgICAgICAgICAgICAgICAgICAgICAgICAgICAgICANCiAgICAgICAgICAgICAgICAgICAgICAg ICAgICAgICAgICAgICAgICAgICAgICAgICAgICAgIC AgICAgICAgICAgICAgICAgICAgICAgICAgICAgICAgICAgICAgICAgICAgICANCiAgICAgICAgICAgIC AgICAgICAgICAgICAgICAgICAgICAgICAgICAgICAgICAgICAgICAgICAgICAgICAgICAgICAgICAgIC AgICAgICAgICAgICAgICAgICAgICAgICAgICANCiAg ICAgICAgICAgICAgICAgICAgICAgICAgICAgICAgICAgICAgICAgICAgICAgICAgICAgICAgICAgICAg ICAgICAgICAgICAgICAgICAgICAgICAgICAgICAgICAgICAgICANCiAgICAgICAgICAgICAgICAgICAg ICAgICAgICAgICAgICAgICAgICAgICAgICAgICAgIC AgICAgICAgICAgICAgICAgICAgICAgICAgICAgICAgICAgICAgICAgICAgICAgICANCiAgICAgICAgIC AgICAgICAgICAgICAgICAgICAgICAgICAgICAgICAgICAgICAgICAgICAgICAgICAgICAgICAgICAgIC AgICAgICAgICAgICAgICAgICAgICAgICAgICAgICAN CiAgICAgICAgICAgICAgICAgICAgICAgICAgICAgICAgICAgICAgICAgICAgICAgICAgICAgICAgICAg ICAgICAgICAgICAgICAgICAgICAgICAgICAgICAgICAgICAgICAgICANCiAgICAgICAgICAgICAgICAg ICAgICAgICAgICAgICAgICAgICAgICAgICAgICAgIC AgICAgICAgICAgICAgICAgICAgICAgICAgICAgICAgICAgICAgICAgICAgICAgICAgICANCiAgICAgIC AgICAgICAgICAgICAgICAgICAgICAgICAgICAgICAgICAgICAgICAgICAgICAgICAgICAgICAgICAgIC AgICAgICAgICAgICAgICAgICAgICAgICAgICAgICAg ICANCiAgICAgICAgICAgICAgICAgICAgICAgICAgICAgICAgICAgICAgICAgICAgICAgICAgICAgICAg ICAgICAgICAgICAgICAgICAgICAgICAgICAgICAgICAgICAgICAgICAgICANCjw/hLAtM4ysdSYppiB5 W3xzJj1CGp0EXR7ao8OsBGUbFUyazjCsOroIFdSpFD BrNvuVCae4GPoxGO5AdPYpH5BpL4VvANpyLX8JRZEmKNJcjFDdACDfDZRzOxO4WSFrDWfjHJ1RvIAjIQ udRIVxNXMzUW0AQLOxZ250owNvQB3ITz1LIrWbPQ5ilv4PEOsyZPXzIebLAux5BQewFK4JpWAjkZJqEI MsENUZBrPjK9zoj9WaTrYvCGCFSHuzBJ6Hi8QxxBHi DQo+Jk2ZDG0jt7JoLDihHONjFJ5ibj2DGFcQImTuP9XmtYoySJEqm1otYGKqVR7nwEBmBUD1LTczaaTk RDT3uI92c5rcEAFYBOBeIAAtZZ3cPk3wGXCsZES3LjFrRIWTMP5FBOUwGCOijFKqQKNmFROKNU8OQAyt DUJ2VDKhxwEpmMCzIHabTX4SIJWrejIgWOcrTGDDMM o+Pu3VYE6rr1RnTGikHGMyIY2din3AGIsEMyAfL6K4wLCnA2G0CYivMd8YWTAgVOUvEErgRKRLUSdyQY 1WEP9knjS1QB3QtGZmRHVxFXYmfIMzERa6I29xiAStAXfiXM1JPEY+Sergo+Kd2VVTInXTFtZUGrUlWkUO LQFkSkY1SeB9YFj3IqE5ZxZW79kObbrrIwCFwcTW4J NP3jBFKqMRMITS0RgSWuzZ8thoMvPXJqXONIKvAuY94eqQCjUUYlGCN8GHUzIu8VJMKdI2EieqJwnPmv bvBqUGWzFGSZKN8XSTxfqbBxvUHzxCgdON28cSonWB5IEi5UGpFoSU4hit1JqXMcGs9KDOPdWc8HFCRf VQNmZQGjKBO9EROeSoSbFFmlUNHrVGKdQPC7GHVwOF TpKZ9AFfRvICUfOIn1WRnpSFNiQSAoqh7MHRXvCPTyLDWbVfJjXSTrEOHfRZhwYCHfQQUzSOM4PFGkNT XqLP9SDlCiLLQlSVLxEQDxIMLqJRMump1BAIJmAMJrHmD4FBUyTZLvORIfZQpcWEXhHPAaKYU2FSQhQZ QbTY1BBlIiTQWvCYL7ZPGwZRLvTSCrwj1GEDJyGXMd Amu6GDKhDUDoQVLzZPpqIIFsECI9VBBbAAEePIQbUN2PUiYfIXZhJDDaXTUfLONcVHRzgi9EERTjXCXq RONeZIPtHIHsAVDiBPacBUFoKPF6PWj5XOVvMZAnTF8GGlKdGLZpSJF4KVGoNEMsJFRpgw6PZYTnCCZf MbUpXLYbFONhJUZoOUuvLQLaRHB7TyHzOKClHZFaEN 4LMjKcZWJaROm1MBsbAKYgBEDihn7HNKZjNVNsTzm5ViCpKPBdQYQfDEdoAGCtFKE9OwO8KSCzTYSoPN 5HUiXfHLCgRWp6JWAmLBFrZPYzye8WSRIpKCUnSCI5SlZaGMHsNKJaGUn6kgZesAIbPEy6FG8CD9Rhpt InWcIUSt1Ct584VQDqGODxOu7GK0suPf4bRMKtLQRB Jc8AJAt9VEFnWLBmWpt9XFBgUwYgKKNmZdAmXtShLhS1FkwyScp+CXzhZdT5BuE1YPldBeXqGeO1UnG1 VrVhJTWuHfCxBrS3PT9uYVSVRh1+LIzwuDDkwMobHTLLQbJ8KVZvWGjlOUNOAo4D ID Date Data Source [id number] 03/25/2021 12:33:04 PM EDT [facility] Name Value Range Interpretation Code Description Data Maryam rce(s) Supporting Document(s) Progress Note [facility] DOAVXo5xBzNZApRl69/PJKsfROVvr0QdKVslXJt9GYfvXQNfQ0UjEKJ4qE2zKRK0MStAQrCvWaGxOXBz lbm [file] DHKqGMIhSAOzETCtSdicY1TcOyA+IN2aREu+Rw2Qk6NksiQ3zgWaXXqlPMC6IM2QFNAEO1JSLr== ID Date Data Source [id number] 03/25/2021 12:32:59 PM EDT [facility] Name Value Range Interpretation Code Description Data Maryam rce(s) Supporting Document(s) Progress Note [facility] DBXTOw6sYfAONkJy56/DGNqrTJYff4XmCZtnDXd7JPneWSYcU7UpBBV9vI3xPKG4UXkWOgWdGbNqSVBh lbm [file] ICAgICAgICAgICAgICAgICAgICAgICAgICAgICAgIC AgICAgICAgICAgICAgICAgICAgICAgICAgICAgICAgICAgICAgDQogICAgICAgICAgICAgICAgICAgIC AgICAgICAgICAgICAgICAgICAgICAgICAgICAgICAgICAgICAgICAgICAgICAgICAgICAgICAgICAgIC AgICAgICAgICAgICAgICAgICAgDQogICAgICAgICAg ICAgICAgICAgICAgICAgICAgICAgICAgICAgICAgICAgICAgICAgICAgICAgICAgICAgICAgICAgICAg ICAgICAgICAgICAgICAgICAgICAgICAgICAgICAgDQogICAgICAgICAgICAgICAgICAgICAgICAgICAg ICAgICAgICAgICAgICAgICAgICAgICAgICAgICAgIC AgICAgICAgICAgICAgICAgICAgICAgICAgICAgICAgICAgICAgICAgDQogICAgICAgICAgICAgICAgIC AgICAgICAgICAgICAgICAgICAgICAgICAgICAgICAgICAgICAgICAgICAgICAgICAgICAgICAgICAgIC AgICAgICAgICAgICAgICAgICAgICAgDQogICAgICAg ICAgICAgICAgICAgICAgICAgICAgICAgICAgICAgICAgICAgICAgICAgICAgICAgICAgICAgICAgICAg ICAgICAgICAgICAgICAgICAgICAgICAgICAgICAgICAgDQogICAgICAgICAgICAgICAgICAgICAgICAg ICAgICAgICAgICAgICAgICAgICAgICAgICAgICAgIC AgICAgICAgICAgICAgICAgICAgICAgICAgICAgICAgICAgICAgICAgICAgDQogICAgICAgICAgICAgIC AgICAgICAgICAgICAgICAgICAgICAgICAgICAgICAgICAgICAgICAgICAgICAgICAgICAgICAgICAgIC AgICAgICAgICAgICAgICAgICAgICAgICAgDQogICAg ICAgICAgICAgICAgICAgICAgICAgICAgICAgICAgICAgICAgICAgICAgICAgICAgICAgICAgICAgICAg ICAgICAgICAgICAgICAgICAgICAgICAgICAgICAgICAgICAgDQogICAgICAgICAgICAgICAgICAgICAg ICAgICAgICAgICAgICAgICAgICAgICAgICAgICAgIC AoZPRwWVDqJAQjERTmOTQrPUQsBEDiHQGeLUOuWFRfJFMgBHKtVXLlEXUwCRGzKRe6Q0krZXZdHEDxHA 0eANx9Jx6+GHwFUvEoBOP7qnLvsR7DQC7pq7JlMTlyVTGvr0GeYKe2BX9YRANpBWtqRK2ETFcbvt8AZW JaBRZhmTGZp8jxFhKnSKT4DXXoQvteEF6DLHNcK5eb fcEgJFAyBHGWES3KKnKuC3GrlZ88AFBJLc1+LOyxwyZyNqrPXhQ2ZYXxe4YkBEr9XM9LTEBzFvcit9Cn XmUvPJWQZLayQL5UHUX0MSQuBIMmAu3YIQWoL272qlMkGE9KIn3XDvSfJT5gyy5LTkLaBMJuVmkSFsl7 XFzuEI3LhGGoUTkYkk0rgpRfjfJYc5MujaQloLRPDS N8hD0gFYHUq34yjGzhKTWPTUT9ZNvlZl3vIQNfUCAbMsUmBJVTUY4LHLTvBQUbpGQtZSJhBVBUCI2DCH gyATF0MIJnejUkoUPfRBxqOS5VBXWkxuHtXMpgSGHFFQw+Yz9YTT0ls8JcRVdkNZJtZS7mfn7QJLhMQh TcJ0Y4dEYkC6U3VMvxHi0TNQDiYZDxHXypBETIRRrl YE5YCD1xrqK7XK1GgCTtNSQvARTifLOpMTv2M58awLOqGRfrSL8ZTUV+Sergo+Wr5VQGVzUVHkJUYxCjSu KFKGJkRdG7ObD6VZy4TbV8QbUJ04hUvvuvUtNOtsIG2MNY2uUTBlNSQXDI4DtPAprC9zivJlEURpIZEX LjYrI17diOJbEHLgPMH4XFRiFz1THBObO5TdtyHnfB bmbkMqRSBuKGRNSK6GKVkxcdMlnEEhnJppWU81nGmqXQ6ETn8CQkKjOE9yhy8XgURrXw2YNUPwXh0RQT WlCMJfPPDsXYS4PNOdFxZfDPqhVVAhRYHwBLJ4GVSkUUWwVR2CSyHoZRQrLLx2LXVxENFkZFMelz8CDI SiFBMlMFJoYZRuJPFcAQEdNElvGASxMGQnGRW9QMEl TOEgWX0WEiYnHLChVHB2MvjnDQUuNZSfsv4MDZPeQPApLwZ2AaPfOCCpTFVhOQqnOGCwLSToMhWdXMRd GHOyLR7IKfLlCUGjBMF1MXuhUSMcPJNazd5DRSPkJCFdKpf7BBPqWCFiHQHjXWiuLQJlLUX9NYL4TULv DROxZR4ITnQlLTXbIVZlEecqDKTqQNLuey2GDLXtMM NzPRKcTDJgEJYaSWUeUUijPYUcGNJ7RvfbTVOwYGBgEK8YSgJoBFStUFF4IZZkDTMwGMHfvf6IQUOsDQ OpMgJjLEQmSTFfZMRcIXxzBNQtRTS4FHF2OOYsDJNaEL0PBlPtZVStQUu1YNBqXXRvPCVdqw4MSVUqPB CfYkj8NZViKDYfKEDfKNfdIJUoAMZ1WQB4DSTfUCMl VO5XMlSdVHOwUGb2GOTyGBTcETCjvg6AAPQfQKRnGKG5OWHbBRCcCCElUPt5nqHijVTiPAj9IU5OY1Mg qxBiOhJFYc9Te174LPHsFXPdMu5RI9bjFu0dENMcORAXKi1ATBv7AbyoSbbrUHLqMZMrQuHgMXFqLhUx VLG0KJKvHbisJUN+IBz6QWN4EgWhXcOmB2CsIzW2Ch Y4SIH2CMBjRqLfMYYjJd1cUCVFCk0+VPbzkOLzrSeqHJJTVhP2NUupXHfzDHSVPp1Q ID Date Data Source [id number] 02/28/2021 12:09:18 PM EDT [facility] Name Value Range Interpretation Code Description Data Maryam rce(s) Supporting Document(s) Progress Note [facility] HKAIOo7qVqGFNnDw57/BMJktTNFzs9ViZCewAKf5HIsrPGKlC4BwHXI0uK1cFXM2KHyBOmWdLiFuCxU9 lbm [file] DQo+Fx4Mt3EfbbX5ovOfILmdMYFdQf4WYYHEI5HKJm== ID Date Data Source [id number] 02/28/2021 12:09:13 PM EDT [facility] Name Value Range Interpretation Code Description Data Maryam rce(s) Supporting Document(s) Progress Note [facility] KFTOGw2pCwABZnAs58/XJGgkPSHkl3JzXIjrIFi4QPvgFADvJ2IwRVD9uQ9wXJG2TWxIOrMgMmRtTrG8 lbm [file] == ID Date Data Source [id number] 02/13/2021 02:08:47 PM EDT [facility] Name Value Range Interpretation Code Description Data Maryam rce(s) Supporting Document(s) Progress Note [facility] DONJYl4mLgGJVpLg37/IJEclGRIjx7YtABldQSn3MGggFSJbJ7UtUMR5jW7tHQN8HBlOFvRdLpYxGeEe lbm [file] Ql1Ku4CvoxV2zbEePMhjPUGrUB7SFESTD2LRAc== ID Date Data Source [id number] 02/13/2021 02:08:42 PM EDT [facility] Name Value Range Interpretation Code Description Data Maryam rce(s) Supporting Document(s) Progress Note [facility] QRYEAs0rVmEHXlYk46/IMWntPSNjk9IrTNukMZw5QUuqDCTdF0QtUKN0gZ1tNHK5GOiZQuBwHrQzOaJi lbm [file] GwUG7MFf3DKkI8NGM6kSLuYi1DXeK5UNQHQmAnJG6WPHb= ID Date Data Source [id number] 02/11/2021 02:00:00 PM EDT [facility] Run: 02/13/21 08 INTERFACED REPORT Name: Dinorah Reyes Age/Sex: 26/ Location: [facility] Acct: [id number] Unit: [id number] Status: REG REF Room/Bed: Re02/11/21 Disch: Ronn Dr: Geraldo Barclay DO Specimen #: [id number] Ordered : 02/11/21 Collected : 02/11/21 By: [...] rce(s) Supporting Document(s) COLOR,UR ML YELLOW A [facility] APPEARANCE,UR SL CLOUDY CLEAR [facility] PH,UR 5.0 5.0-8.0 [facility] SPECIFIC GRAVITY,UR 1.023 1.002-1.035 N [facility] PROTEIN,UR NEGATIVE MG/DL NEGATIVE [facility] GLUCOSE, UR NEGATIVE MG/DL NEGATIVE [facility] KETONES,UR NEGATIVE MG/DL NEGATIVE [facility] OCCULT BLOOD,UR SMALL NEGATIVE A [facility] NITRATE,UR POSITIVE NEGATIVE A [facility] LEUKOCYTE ESTERASE ,UR SMALL NEGATIVE A [facility] BILIRUBIN,UR NEGATIVE NEGATIVE [facility] UROBILINOGEN,UR 2.0 EU MG/DL NEG-0-1.0 A [facility] RBC,UR 1-2 PER HPF 0-2 [facility] WBC,UR 25-49 PER HPF <5 A [facility] URINE EPITH MANY PER/LPF FEW-MOD [facility] BACTERIA,UR MANY PER HPF NONE A [facility] MUCUS,UR MANY PER HPF NONE SEEN [facility] ID Date Data Source [id number] 02/13/2021 08:22:00 AM EDT [facility] Run: 02/13/21 08 INTERFACED REPORT Name: Dinorah Reyes Age/Sex: 26/F Location: [facility] Acct: [id number] Unit: [id number] Status: REG REF Room/Bed: Re02/11/21 Disch: Att Dr: Geraldo Barclay DO Specimen #: [id number] Ordered : 02/11/21 Collected : 02/11/21 By: [...] rce(s) Supporting Document(s) ID Date Data Source [id number] 02/08/2021 04:16:00 PM EDT [facility] ([facility]) Name Value Range Interpretation Code Description Data Maryam rce(s) Supporting Document(s) HCG NEG Normal HCG [facility] ([facility]) ID Date Data Source [id number] 02/08/2021 04:06:00 PM EDT [facility] ([facility]) Name Value Range Interpretation Code Description Data [...] 1.025 Abnormal (applies to non-numeric results) Specific [place] [facility] ([facility]) ID Date Data Source [id number] 02/08/2021 05:55:00 PM [facility] Name Value Range Interpretation Code Description Data Maryam rce(s) Supporting Document(s) WHITE BLOOD COUNT 8.76 10^3/uL 4.00-10.50 N [facility] RED BLOOD COUNT 4.03 10^6/uL 3.90-5.20 [facility] HEMOGLOBIN 11.5 G/DL 11.5-15.6 N [facility] HEMATOCRIT 36.2 % 35.0-46.0 N [facility] MCV 89.8 FL 80.0-100.0 N [facility] MCH 28.5 PG 27.0-34.0 N [facility] MCHC 31.8 G/DL 32-36 L [facility] RDW 12.8 % 11.5-14.5 N [facility] PLATELET COUNT 274 10^3/uL 130-400 N [facility] MPV 10.5 FL 8.7-13.2 N [facility] GRAN % (AUTO) 65.3 % 42.0-75.0 N [facility] LYMPH % (AUTO) 25.8 % 20.0-51.0 N [facility] MONO % (AUTO) 6.7 % 2.0-15.0 N [facility] EOS % (AUTO) 1.7 % 0.0-11.0 N [facility] BASO % (AUTO) 0.2 % 0.0-2.0 N [facility] IG % (AUTO) 0.3 % 1.00-5.00 [facility] IG # (AUTO) 0.0 10^3/uL <0.5 [facility] GRAN # (AUTO) 5.71 10^3/uL 1.50-6.50 N [facility] LYMPH # (AUTO) 2.3 k/uL 1.0-5.0 N [facility] MONO # (AUTO) 0.59 k/uL 0.20-1.50 N [facility] EOS # (AUTO) 0.15 10^3/uL 0.00-1.10 N [facility] BASO # (AUTO) 0.02 10^3/uL 0.00-0.20 N [facility] ID Date Data Source [id number] 02/08/2021 06:00:00 PM EDT [facility] Name Value Range Interpretation Code Description Data Maryam rce(s) Supporting Document(s) SODIUM 138 MEQ/L 135-145 N [facility] POTASSIUM 3.7 MEQ/L 3.5-5.3 N [facility] CHLORIDE 106 MEQ/L 94-110 [facility] CARBON DIOXIDE 26 MEQ/L 22-33 [facility] ANION GAP 10 5-16 N [facility] BLOOD UREA NITRO 7 MG/DL 7-25 N [facility] CREATININE 0.5 MG/DL 0.6-1.4 L [facility] GFR > 90.0 ML/MIN [facility] Stage G1 - Normal or high kidney functi on The GFR is an estimate of the Glomerular Filtration Rate. It is an aid to assess a patient's renal function. It is not a conclusive diagnosis of kidney disease. GFR normal is >=90 The MDRD GFR calculation is considered valid between the ages of 18 and 75 years only. BUN/CREAT RATIO 14 8-36 [facility] GLUCOSE 77 MG/DL 70-100 [facility] CA 9.6 MG/DL 8.7-10.5 [facility] BILIRUBIN,TOTAL 0.5 MG/DL 0.1-1.3 [facility] AST 20 U/L 5-40 N [facility] ALT 16 U/L 5-48 [facility] ALKALINE PHOSPHATASE 79 U/L 40-140 [facility] alth TOTAL PROTEIN 7.3 G/DL 5.9-8.3 N [facility] ALBUMIN 4.5 G/DL 3.0-5.1 [facility] GLOBULIN 2.8 G/DL 1.5-3.5 [facility] ALB/GLOB RATIO 1.6 G/DL 1.0-3.0 [facility] ID Date Data Source [id number] 02/10/2021 10:53:00 PM EDT [facility] Name Value Range Interpretation Code Description Data Maryam rce(s) Supporting Document(s) RAPID PLASMA REAGIN WITH TITER See Notes [facility] RPR Non Reactive Non Reactive [facility] [address], [address] Dir: Florinda Dhillon MD Test performed by [employer] methodology ID Date Data Source [id number] 02/08/2021 05:55:00 PM T [facility] Name Value Range Interpretation Code Description Data Maryam rce(s) Supporting Document(s) RETICULOCYTE % (AUTO) 1.2 % 0.5-2.0 N [facility] RETICULOCYTE HGB 32.6 pg 29-35 N [facility] ABSOLUTE RETICS # 0.0488 10^6/uL [facility] IMMATURE RETIC FRACTION 9.3 % 3.0-15.9 N [facility] ID Date Data Source [id number] 02/08/2021 06:00:00 PM EDT [facility] Name Value Range Interpretation Code Description Data Maryam rce(s) Supporting Document(s) IRON 38 UG/DL 35-150 N [facility] TIBC 313 UG/DL 260-400 N [facility] % IRON SATURATION 12.0 % 20-50 L [facility] h ID Date Data Source [id number] 02/10/2021 10:53:00 PM EDT [facility] Name Value Range Interpretation Code Description Data Maryam rce(s) Supporting Document(s) HCV COMMENT See Notes [facility] Hep A Ab, IgM Negative Negative Hep [...] evidence exists to indicate HCV infection. [facility] [address], [address] Dir: Florinda Dhillon MD ID Date Data Source [id number] 02/08/2021 06:00:00 PM EDT [facility] Name Value Range Interpretation Code Description Data Maryam rce(s) Supporting Document(s) FERRITIN 17.6 NG/ML 22-322 L [facility] ID Date Data Source [id number] 02/10/2021 10:53:00 PM EDT [facility] Name Value Range Interpretation Code Description Data Maryam rce(s) Supporting Document(s) HIV SCREEN 4TH GENERATION See Notes [facility] HIV Screen 4th Gen wRfx Non Reactive Non Reactive [facility] [place], [address] Dir: Florinda Dhillon MD ID Date Data Source [id number] 02/08/2021 06:00:00 PM EDT [facility] Name Value Range Interpretation Code Description Data Maryam rce(s) Supporting Document(s) VITAMIN [id number] PG/ML 211-2000 N [facility] ID Date Data Source [id number] 02/08/2021 06:00:00 PM EDT [facility] Name Value Range Interpretation Code Description Data Maryam rce(s) Supporting Document(s) FOLATE 21.73 NG/ML 3.40-24.00 N [facility] ID Date Data Source [id number] 02/08/2021 06:00:00 PM EDT [facility] Name Value Range Interpretation Code Description Data Maryam rce(s) Supporting Document(s) TSH 0.879 uIU/ML 0.470-4.200 N [facility] Patients should not be tested for 74 ho urs post fluorescein dye angiography. A false depression of result may occur. ID Date Data Source [id number] 02/08/2021 06:00:00 PM EDT [facility] Name Value Range Interpretation Code Description Data Maryam rce(s) Supporting Document(s) VALPROIC ACID < 3 UG/ML 50-100 L [facility] ID Date Data Source [id number] 02/08/2021 09:42:00 PM EDT [facility] Name Value Range Interpretation Code Description Data Maryam rce(s) Supporting Document(s) SAVI BY DNA PROBE NEGATIVE NEGATIVE [facility] GARDNERELLA BY DNA PROBE NEGATIVE NEGATIVE [facility] TRICHOMONAS BY DNA PROBE NEGATIVE NEGATIVE [facility] TESTING PERFORMED BY NUCLEIC ACID HYBRI DIZATION ID Date Data Source [id number] 02/12/2021 12:01:00 PM EDT [facility] Name Value Range Interpretation Code Description Data Maryam rce(s) Supporting Document(s) CHLAMYDIA, URINE NEGATIVE NEGATIVE [facility] GC, Urine NEGATIVE NEGATIVE [facility] ID Date Data Source [id number] 02/10/2021 08:57:00 AM EDT [facility] Run: 02/10/21 0857 INTERFACED REPORT Name: Dinorah Reyes Age/Sex: 26/F Location: [facility] Acct: [id number] Unit: [id number] Status: REG REF Room/Bed: Re02/08/21 Disch: Ronn Dr: Pauline Guerin 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 Specimen #: [id number] Ordered : 02/08/21 Collected : 02/08/21 By: [...] rce(s) Supporting Document(s) ID Date Data Source [id number] 02/08/2021 07:35:00 PM EDT [facility] Name Value Range Interpretation Code Description Data [facility] rce(s) Supporting Document(s) COLOR,UR YELLOW YELLOW [facility] APPEARANCE,UR CLOUDY CLEAR A [facility] PH,UR 6.0 5.0-8.0 [facility] SPECIFIC GRAVITY,UR 1.012 1.002-1.035 N [facility] PROTEIN,UR NEGATIVE MG/DL NEGATIVE [facility] GLUCOSE, UR NEGATIVE MG/DL NEGATIVE [facility] KETONES,UR 20 MG/DL NEGATIVE A [facility] OCCULT BLOOD,UR NEGATIVE NEGATIVE [facility] NITRATE,UR POSITIVE NEGATIVE A [facility] LEUKOCYTE ESTERASE ,UR MODERATE NEGATIVE A [facility] BILIRUBIN,UR NEGATIVE NEGATIVE [facility] UROBILINOGEN,UR 0.2-1.0 EU MG/DL NEG-0-1.0 [facility] RBC,UR 3-9 PER HPF 0-2 A [facility] WBC,UR 50-100 PER HPF <5 A [facility] URINE EPITH MANY PER/LPF FEW-MOD [facility] BACTERIA,UR FEW PER HPF NONE [facility] MUCUS,UR MANY PER HPF NONE SEEN [facility] ID Date Data Source [id number] 01/31/2021 01:09:17 PM EDT [facility] Name Value Range Interpretation Code Description Data Maryam rce(s) Supporting Document(s) Progress Note [facility] EBATNp7pIjEAIqRi03/NGVgaWYMuk2LkXVqwOXi0EJoaEERoM3MbGAD6dJ5kGJQ2LJfPHpJdExVwDgKk lbm [file] V9OmGzTOxhMmU0P6M+KY1qPIl+Fl5Hg4ZumfX9vkGeMHhnNYH8IG0EEMHNE5CMTz== ID Date Data Source [id number] 01/31/2021 01:09:12 PM EDT [facility] Name Value Range Interpretation Code Description Data Maryam rce(s) Supporting Document(s) Progress Note [facility] UFPFIw8wMpZLPvSs66/ZGSuvFJOpc7WxVEdzMSj7VZknAJQuQ5OrJNX3pU0dOLZ1EDkIGmXiHtUpTsIp lbm [file] Xj1Qa0UlhaT0buJxSLiiUXO7Kr9YEAQQC9WYJn== ID Date Data Source [id number] 01/30/2021 06:58:11 AM EDT [facility] Name Value Range Interpretation Code Description Data Maryam rce(s) Supporting Document(s) ED Provider Note [facility] IFZNTi9cYdQHOmOa61/DQWnaEZHof6LiPPgiZAw8OPwxZEAmF9SxSSI0fC2qUGN6NWoDJzYiMlYcClL9 lbm [file] 0KICA+Sergo+Mt5AQTLmEQZsKRMiKfNcCIBRSnNnP9Mi E8ORc0QuZ1FbHK17lPtydnYjETriSV1KWZ2nSICkSCUNYR7LcTYtvY8sutG3XrOqWDPSXfOnW87nsGQv CGZeOJY3MFFlZm8BMZHrL3LrrgYdkZjpkzPaZQOaMDBFXI9VRBzkziRdxAEkmCcvQI73yDkrXO3OBj3K PcOePW0qfg2DuCJbOq1UQGE6XB6YTHRrYACdMKIkHD Q6CHBiYvWfCHcaIVIiAXDuRVN4WXMyGFVtQT5KOoXiQLKfCWEqICluWVZkICYsvp8VULZsURZ7VIy1PG EpBFWaIIJpVUipQRLcYSHbRQQ4PSYxUXZwEH1DAhIuMTFeCNWkNSXvOMKaNASkwh0ZJZNyTZZvNrDlSb RzUTTyFHHcDYjqLMEpVTP9XeMbUNQrTFSyFF5IBtXd PALrIQE0AVWgJRWgHBRhnu6ONUXuACTxLXE5MWKwHSRnIQBdIXwgABBrKLS8BuA3ESKgMBSgQV8WGwHv LGOvWML9YFXeBDVwRFSrrs8APLZrTORyGgDjEJDgQSJuDFTvLVgaGQGwDJE1NIO6DJGlPPGgOJ4XHcAi VHYcNLDdLkKiITLhMFCnqf8ZOSNoQEVgNdX2AVGhLI FoSVGzDMjoIJOuSTC9ZhsvTSTjBYEmUI5UDjQwQDKgQvR6WMroETTdSCEbtg9HPORuCNFnQIQ7FJXrHP KuQDBcFUayRGPmDTVxDzexMHBvJOZePH5QIcSuZFTcCtT9DVttNKUlKAJnkz5HUOUgCDFyWpJ3EqXcBW HmPMFpPJdfUZUgYES6OkuqEOBkXFSlSI9LFgToUQGl KqivFxWzTGMbDEKocy4NEIZoSYIeSNYjNfOzDAYkJJGeKWboEKTiESUhQRO4ZUEgKKMeWW1SXqKzAUHp XdFaZQWyZULtKDWfrn8IHUZuHCLrZBZ8GDVvONQzGORlQZuiOEYcZTV3AxP5AUTaWLHrOX0STgSqHETw PkW5VvAcODHqNBLqxk6ZDAErWYFtLtq9LdXfQQNbRR JnDEcaOKKuKNK4JXH8DZZyCDTlLZ5TGiYhTOOuUhm4TUEeZWAlOVZsci0BVXHqFAIlVHRdKrEaKULyIA FqONfkCYLfAOV8Sxf3LZOiGCSsDP6IRqWmMSMqUQv6MrhiDVUvTNItrp0IXJBtUOK8WBx7EaYtLFCeXD EyBAqmQTIjVJGaXpA7BAEvJUJfVK4TCdOmBULiONQ5 WMGeAMJvIGNalf3XBBGdRVF6OQY6ENEnRDIfUZAjKEvqMQIbBCYeRDY8MDWnVQOlIB2WYqBpKECuQZW9 NpGbRCVlEWHxpg3DPLMiWNY7LZhvIMAsDJHbRSAuXElwTOJpTOBlDEL6DHSyQOPwAG5CTbAdEKFaXJZn LmFvYPCzQQWdqb0WSTTdSIE3JbF9FxQkRPLyGXRbQI xmPKBdMWWzVjNxJXLqFRErOT1EInBcPQXoGWXoDPUtHMZaOSKgeo5DHLGaPDM1VXMsEXIbBOZiAFTnEI ggSYXjSQS7BUMiPMOxRHLlHO5QRnFhMDToOUT8TkHoPHWrCLYcdr5EFVWpABJ6VUxgRZPrQCBnHDUuRD jaHPPkWWT6IHx7YKHrVJWtCF6MDjNgPOPsFUHkXgRa DZTyECOroj5EQJZuPLI0AzU1XyAlNHUmLKTjZYd8syCeuNRdIZl1KY0WK6MlsfXbVSJWJe1It658OLB8 BWTgAl8WV3wtJy0hKVRhKZAZCa0XHVx3VXT3JFQ8NwLsZCcwBxM2LQFrOdZ3NbBsEst7CdU5Kng+IDxk MKE6YyqbXYC1YFXzEHF0AYSwCMk0UjWwIzt3EFrbSq 5mXIHCOd4+WHxgmAQwyVtoPWKVGoG3MWy9PJjnIAYGJp3L ID Date Data Source [id number] 01/29/2021 10:56:54 AM EDT [facility] Name Value Range Interpretation Code Description Data Maryam rce(s) Supporting Document(s) Consultation [facility] XPVGKb6lTvMFYjUz31/JKJprPFJwq6IaFSsgMRi9EPdfXCFeX0GzQUS3eL5vYPP2LTyMFhFaLwOzPcV8 lbm [file] IJC1W4ZkIEC+FW3pPIc+Ig9Vk2PollY3ydVeFTxpEwF6Mc5AEYUEY9WKUu== ID Date Data Source [id number] 01/25/2021 10:54:32 PM EDT [facility] Name Value Range Interpretation Code Description Data Maryam rce(s) Supporting Document(s) Glucose [Mass/volume] in Capillary blood by Glucometer 82 mg/dL 70- 140 [facility] ID Date Data Source [id number] 10/29/2020 12:50:00 PM EST [facility] ([facility] ) Name Value Range Interpretation Code Description Data Maryam rce(s) Supporting Document(s) Valproate [Mass/volume] in Serum or Plasma 139.7 UG/ML 50.0-100.0 [facility] ([facility], ) Lacosamide [Mass/volume] in Serum or Plasma 5.0 ug/mL 5.0-10.0 [facility] ([facility], ) This test was developed and its performa nce characteristics determined by [facility]. It has not been cleared or approved by the Food and Drug Administration. Limit of Detection 0.5 . Mean plasma concentrations following maintenance dose 200 mg/day 4.99 +/- 2.51 ug/mL 400 mg/day 9.35 +/- 4.22 ug/mL 600 mg/day 12.46 +/- 5.60 ug/mL Performed at: [address] [id number] [employer]er: Gagandeep Delgado MD, Phone: [phone] ID Date Data Source [id number] 10/29/2020 12:50:00 PM EST [facility] ([facility]) Name Value Range Interpretation Code Description Data Maryam rce(s) Supporting Document(s) Glucose, Fasting 84 mg/dL 70-100 [facility] ([facility], ) Blood Urea Nitrogen 13 mg/dL 7-18 [facility] ([facility]) Glomerular Filtration Rate Laboratory test result [facility] ([facility]) <content>Units are mL/min/1.73 m2</content>
<content></content>
<content>Chronic Kidney Disease Staging per NKF:</content>
<content></content>
<content>Stage I & II GFR >=60 Normal to Mildly Decreased</content>
<content>Stage III GFR 30- 59 Moderately Decreased</content>
<content>Stage IV GFR 15-29 Severely Decreased</content>
<content>Stage V GFR <15 Very Little GFR Left</content>
<content>ESRD GFR <15 on INSPECTOR SUBASSEMBLIES</content>
<content></content> Creatinine For GFR 0.61 mg/dL 0.55-1.30 [facility] ([facility]) Potassium Serum 4.8 meq/L 3.5-5.1 [facility] ([facility]) Sodium Level 140 meq/L 136-145 [facility] ([facility]) Carbon Dioxide Level 30 meq/L 21-32 [facility] ([facility]) Chloride Level 108 meq/L 98-107 [facility] ([facility]) Calcium Level 9.1 mg/dL 8.5-10.1 [facility] ([facility]) Anion Gap 2 meq/L 8-16 [facility] ([facility]) Ast/Sgot 10 U/L 7-37 [facility] ([facility]) Alt/SGPT 15 U/L 12-78 [facility] ([facility]) Alkaline Phosphatase 72 U/L 45-117 [facility] ([facility]) Total Protein 7.2 GM/DL 6.4-8.2 [facility] ([facility]) Bilirubin,Total 0.3 mg/dL 0.2-1.0 [facility] ([facility]) Albumin/Globulin Ratio 0.9 1.2-2.2 [facility] ([facility]) Albumin 3.5 GM/DL 3.2-5.2 [facility] ID Date Data Source [id number] 10/29/2020 12:50:00 PM EST [facility] ([facility]) Name Value Range Interpretation Code Description Data Maryam rce(s) Supporting Document(s) White Blood Count 6.1 10 4.0-10.0 [facility] ([facility], ) Hemoglobin 12.0 g/dL 12.0-15.5 [facility] ([facility]) Red Blood Count 4.43 10 4.00-5.40 [facility] ([facility]) Mean Corpuscular Hemoglobin 27.1 pg 27.0-33.0 [facility] ([facility]) Hematocrit 39.4 % 36.0-47.0 [facility] ([facility]) Mean Corpuscular Volume 88.9 fl 80.0-96.0 M [facility] ([facility]) Mean Corpuscular HGB Conc 30.5 g/dL 32.0-36.5 [facility] ([facility]) Platelet Count, Automated 229 10 150-450 [facility] ([facility]) Red Cell Distribution Width 14.6 % 11.5-14.5 [facility] ([facility]) [place] % 9.7 % 2.0-8.0 [facility] ([facility] ) Lymph % 42.4 % 24.0-44.0 [facility] Neutrophils % 45.7 % 36.0-66.0 [facility] ([facility], ) Eos % 1.8 % 0.0-3.0 [facility] ([facility] ) Baso % 0.2 % 0.0-1.0 [facility] Nucleated Red Blood Cell % 0.0 % 0-0 MED ENT [facility] Immature Granulocyte % 0.2 % 0-3.0 [facility] ([facility]) Neutrophils # 2.8 10 1.5-8.5 [facility] ([facility]) Lymph # 2.6 10 1.5-5.0 [facility] ([facility] [place] # 0.6 10 0.0-0.8 [facility] ([facility]) Baso # 0.0 10 0.0-0.2 [facility] ([facility]) Eos # 0.1 10 0.0-0.5 [facility] ([facility], ) Procedure Social History Code Duration Value Status Description Data Source(s ) Smoking 06/07/2021 12:00:00 AM EDT Never smoked tobacco (findi ng) completed Never smoked tobacco (finding) [place] ([facility]) Alcohol intake 04/09/2021 12:00:00 AM EDT Current non-d gabino of alcohol (finding) completed Current non-drinker of alcohol (finding) [facility] Tobacco use and exposure 04/09/2021 12:00:00 AM EDT Never used co mpleted Never used [facility] Smoking 04/09/2021 12:00:00 AM EDT Never smoker completed Never s [facility] Alcohol intake 03/25/2021 12:00:00 AM EDT Current non-d gabino of alcohol (finding) completed Current non-drinker of alcohol (finding) [facility] Alcohol intake 02/27/2021 12:00:00 AM EDT Current non-d gabino of alcohol (finding) completed Current non-drinker of alcohol (finding) [facility] Alcohol intake 02/13/2021 12:00:00 AM EDT Current non-d gabino of alcohol (finding) completed Current non-drinker of alcohol (finding) [facility] Assertion 02/08/2021 12:00:00 AM EDT Finding relat ing to drug misuse behavior (finding) completed Finding relating to drug misuse behavior (finding) [place] ([facility]) Assertion 02/08/2021 12:00:00 AM EDT Current drinker of al cohol (finding) completed Current drinker of alcohol (finding) [place] ([facility]) Assertion 02/08/2021 12:00:00 AM EDT Finding relat ing to drug misuse behavior (finding) completed Finding relating to drug misuse behavior (finding) [place] ([facility]) Assertion 02/08/2021 12:00:00 AM EDT Current drinker of al cohol (finding) completed Current drinker of alcohol (finding) [place] ([facility]) Alcohol intake 01/31/2021 12:00:00 AM EDT Current non-d gabino of alcohol (finding) completed Current non-drinker of alcohol (finding) [facility] Alcohol intake 01/25/2021 12:00:00 AM EDT Current non-d gabino of alcohol (finding) completed Current non-drinker of alcohol (finding) [facility] Vital Signs ID Date Data Source UNK Name Value Range Interpretation Code Description Data Source(s) Heart rate rhythm 1 1 [facility] Y ([facility]) Respiratory rate 18 /min 18 /min [place] ([facility]) Systolic blood pressure 110 mm[Hg] 110 mm[Hg] G [facility] ([facility]) Diastolic blood pressure 84 mm[Hg] 84 mm[Hg] [place] ([facility]) Heart rate 101 /min 101 /min [place] ([facility]) Body temperature 97 [degF] 97 [degF] [place] ([facility]) Body weight 113 [lb_av] 113 [lb_av] [place] ([facility]) PhenX - pain, abdominal - type and intensity protocol 7 7 [place] ([facility]) Oxygen saturation in Arterial blood by Pulse oximetry 97 % 97 % [place] ([facility]) Inhaled oxygen flow rate 0 L/min 0 L/min [place] ([facility]) Inhaled oxygen concentration 21 % 21 % [place] ([facility]) Systolic blood pressure 118 mm[Hg] 118 mm[Hg] [facility] Diastolic blood pressure 66 mm[Hg] 66 mm[Hg] [place] ([facility]) Heart rate 83 /min 83 /min [place] ([facility]) Respiratory rate 17 /min 17 /min [place] ([facility]) Body temperature 98.1 [degF] 98.1 [degF] [facility] ([facility]) Body height 66.5 [in_i] 66.5 [in_i] [place] [facility] weight 114 [lb_av] 114 [lb_av] [place] ([facility]) Body mass index (BMI) [Ratio] 18.1 kg/m2 18.1 k g/m2 [place] ([facility]) Body surface area Derived from formula 1.58 m2 1.58 m2 [place] ([facility]) PhenX - pain, abdominal - type and intensity protocol 0 0 [place] ([facility]) Oxygen saturation in Arterial blood by Pulse oximetry 97 % 97 % [place] ([facility]) Inhaled oxygen flow rate 0 L/min 0 L/min [place] ([facility]) Inhaled oxygen concentration 21 % 21 % [place] ([facility]) ID Date Data Source [id number] 2021 01:57:00 PM EDT [facility] Name Value Range Interpretation Code Description Data Source(s) WEIGHT RECORDED [address] [facility] Body height Measured 68 in 68 in [facility] Patient Treatment Plan of Care Planned Activity Planned Date Details Description Data Source (s) NITROFURANTOIN, MACROCRYSTALS 25 MG / Ni trofurantoin, Monohydrate 75 MG Oral Capsule [Macrobid] 02/12/2021 12:00:00 AM EDT [facility] Ethinyl Estradiol 0.03 MG / Levonorgestrel 0.15 MG Ora l Tablet 02/11/2021 12:00:00 AM T [facility] Ethinyl Estradiol 0.03 MG / Levonorgestrel 0.15 MG Ora l Tablet 02/08/2021 12:00:00 AM EDT [place] [facility] [place] (28) 50-30/75-40/ 125-30 MCG Oral Tablet 09/20/2019 12:00:0 0 AM EST [place] ([facility])
--- NOTE | 2021-06-12 22:54 | REPVR ---
PROCEDURE INFORMATION: Exam: US Right Breast Limited; Cellulitis or Abscess Evaluation Exam date and time: 06/12/2021 9:32 PM Age: 26 years old Clinical indication: Breast pain; Right; Additional info: Concern for abscess to right breast TECHNIQUE: Imaging protocol: Right breast ultrasound. Exam limited to the quadrant(s) of clinical concern. Exam focused on the evaluation of cellulitis or abscess. Exam is an emergent request and a non-BIRADS study. COMPARISON: No relevant prior studies available. FINDINGS: Breast: Right breast 1-3 o'clock hard palpable complex irregular walled structure with internal debris measures 4.7 x 3.7 x 2.1 cm and could be an abscess or hematoma. IMPRESSION: Right breast 1-3 o'clock hard palpable complex irregular walled structure with internal debris measures 4.7 x 3.7 x 2.1 cm and could be an abscess or hematoma. Favor hematoma given the absence of any significant hyperemia in the adjacent soft tissues. Electronically signed by: Agapito Ruiz On 06/12/2021 22:53:21 PM
== END 2021-06-12 23:20 | disposition home or self-care (01) ==
LOC: M ED 17:57
DX: N61.1 Abscess of the breast and nipple (principal); Z88.1 Allergy status to other antibiotic agents; Z88.2 Allergy status to sulfonamides

== ENCOUNTER → 2021-06-13 | Outpatient (REF) | payer BC ==
[~2021-06-13] MED LIST changes: +AUGM875T28 PO; +IBUP-1022 PO
== END ==
LOC: M LAB REF 15:53
PROVIDERS: ATTEND Surgery
DX: N61.1 Abscess of the breast and nipple (principal)

== ENCOUNTER → 2023-01-07 | Outpatient (CLI) | payer BC ==
[2023-01-07 14:54] LABS: BASO % 0.3 % (0.0-1.0); EOS # 0.2 10^3/uL (0.0-0.5); EOS % 1.8 % (0.0-3.0); HEMATOCRIT 38.7 % (36.0-47.0); HEMOGLOBIN 12.5 g/dl (12.0-15.5); LYMPH # 2.3 10^3/uL (1.5-5.0); LYMPH % 25.5 % (24.0-44.0); MEAN CORPUSCULAR HGB CONC 32.3 g/dl (32.0-36.5); MEAN CORPUSCULAR VOLUME 89.8 fl (80.0-96.0); MONO # 0.5 10^3/uL (0.0-0.8); MONO % 5.9 % (2.0-8.0); NEUTROPHILS # 5.8 10^3/uL (1.5-8.5); NEUTROPHILS % 66.2 % (36.0-66.0); PLATELET COUNT, AUTOMATED 310 10^3/uL (150-450); RED BLOOD COUNT 4.31 10^6/uL (4.00-5.40); WHITE BLOOD COUNT 8.8 10^3/uL (4.0-10.0)
[2023-01-07 15:19] LABS: VALPROIC ACID (DEPAKOTE) < 3.0 UG/ML (50.0-100.0)
[2023-01-07 15:21] LABS: ALBUMIN 3.7 G/DL (3.2-5.2); ALKALINE PHOSPHATASE 69 U/L (46-116); ALT/SGPT < 9 U/L (7.0-40); AST/SGOT 17 U/L (<34); BILIRUBIN,TOTAL 0.4 MG/DL (0.3-1.2); BLOOD UREA NITROGEN 9 MG/DL (9-23); CALCIUM LEVEL 8.7 MG/DL (8.5-10.1); CARBON DIOXIDE LEVEL 24 MMOL/L (20-31); CHLORIDE LEVEL 106 MMOL/L (98-107); CREATININE FOR GFR 0.56 MG/DL (0.55-1.30); GLOMERULAR FILTRATION RATE > 60.0 (>60); GLUCOSE, FASTING 78 MG/DL (60-100); POTASSIUM SERUM 4.1 MMOL/L (3.5-5.1); SODIUM LEVEL 139 MMOL/L (136-145)
== END ==
LOC: M LAB 13:39
PROVIDERS: ATTEND Psychiatry & Neurology Neurology
DX: R56.9 Unspecified convulsions (principal)

== ENCOUNTER → 2023-04-17 | Outpatient (CLI) | payer MEDICAID ==
[2023-04-17 13:25] LABS: BASO % 0.5 % (0.0-1.0); EOS # 0.1 10^3/uL (0.0-0.5); EOS % 1.9 % (0.0-3.0); HEMATOCRIT 40.5 % (36.0-47.0); HEMOGLOBIN 12.8 g/dl (12.0-15.5); LYMPH # 2.8 10^3/uL (1.5-5.0); MEAN CORPUSCULAR HEMOGLOBIN 28.8 pg (27.0-33.0); MEAN CORPUSCULAR HGB CONC 31.6 g/dl (32.0-36.5); MEAN CORPUSCULAR VOLUME 91.2 fl (80.0-96.0); MONO # 0.4 10^3/uL (0.0-0.8); MONO % 6.8 % (2.0-8.0); NEUTROPHILS # 2.5 10^3/uL (1.5-8.5); NEUTROPHILS % 42.6 % (36.0-66.0); PLATELET COUNT, AUTOMATED 254 10^3/uL (150-450); RED BLOOD COUNT 4.44 10^6/uL (4.00-5.40); WHITE BLOOD COUNT 5.8 10^3/uL (4.0-10.0)
[2023-04-17 13:55] LABS: VALPROIC ACID (DEPAKOTE) 100.9 UG/ML (50.0-100.0)
[2023-04-17 13:56] LABS: ALBUMIN 3.7 G/DL (3.2-5.2); ALKALINE PHOSPHATASE 56 U/L (46-116); ALT/SGPT 10 U/L (7.0-40); AST/SGOT 10 U/L (<34); BILIRUBIN,TOTAL 0.4 MG/DL (0.3-1.2); BLOOD UREA NITROGEN 11 MG/DL (9-23); CALCIUM LEVEL 8.9 MG/DL (8.5-10.1); CARBON DIOXIDE LEVEL 27 MMOL/L (20-31); CHLORIDE LEVEL 105 MMOL/L (98-107); CREATININE FOR GFR 0.57 MG/DL (0.55-1.30); GLOMERULAR FILTRATION RATE > 60.0 (>60); GLUCOSE, FASTING 73 MG/DL (60-100); POTASSIUM SERUM 4.1 MMOL/L (3.5-5.1); SODIUM LEVEL 140 MMOL/L (136-145); TOTAL PROTEIN 7.4 G/DL (5.7-8.2)
== END ==
LOC: M LAB 12:25
PROVIDERS: ATTEND Psychiatry & Neurology Neurology
DX: G40.89 Other seizures (principal)